=== PATIENT | female | born 1935 | race Caucasian/White ===

== ENCOUNTER 2019-05-31 11:57 | Outpatient (CLI) | payer MEDICARE, SELFPAY ==
--- NOTE | ~2019-05-31 | US_ITS ---
EXAMINATION: US venous doppler [facility] DATE: 05/31/2019 12:39 INDICATION: Pain and swelling in the left lower limb. TECHNIQUE: Grayscale ultrasound images without and with compression and Doppler ultrasound images of the left lower extremity veins were obtained. COMPARISON: None. FINDINGS: The visualized portions of left common femoral vein, profunda (deep) femoral vein, femoral vein, popl iteal vein, peroneal veins, posterior tibial veins, gastrocnemius vein and greater saphenous vein out flow are patent. There is increased venous pulsatility which extends to the popliteal and gastrocnemi us veins. 2.5 x 2.5 x 1.4 cm Felix cyst at the left popliteal fossa. IMPRESSION: 1. No deep venous thrombosis in the left lower limb. 2. Increased venous pulsatility extending to the popliteal and gastrocnemius veins. This can be seen in the setting of tricuspid regurgitation, right heart failure or other causes of elevated right hear t pressures. 3. Small left Felix's cyst. Reviewed, dictated and finalized at location A. UNICATIONS INSTRUCTOR IMPRESSION: 1. No deep venous thrombosis in the left lower limb. 2. Increased venous pulsatility extending to the popliteal and gastrocnemius ve ins. This can be seen in the setting of tricuspid regurgitation, right heart fa ilure or other causes of elevated right heart pressures. 3. Small left Felix's cyst.
== END 2019-05-31 11:58 | disposition home or self-care (01) ==
PROVIDERS: PCP Emergency Medicine; Visit Provider Internal Medicine Cardiovascular Disease
DX: R60.0 Localized edema (principal); R94.39 Abnormal result of other cardiovascular function study; M71.22 Synovial cyst of popliteal space [Baker], left knee
CPT/HCPCS: 93971

== ENCOUNTER 2019-12-21 13:40 | Outpatient (CLI) | payer MEDICARE, SELFPAY ==
--- NOTE | 2019-12-21 14:10 | ECHO_ITS ---
Patient Info Name: Martha Martinez Age: 84 years : 1935 Gender: Female Ht: 61 in Wt: 113 lbs BSA: 1.49 m2 HR: 86 bpm BP: 180 / 84 mmHg Technical Quality: Good Exam Date: 12/21/2019 2:21 PM Exam Location: [facility] Patient Status: Outpatient Admit Date: 12/21/2019 Staff Ordering Physician: Danis Urena DO Chief Librarian Extension Department: Eyal Reyes, RAVI, RT Attending Provider: Danis Urena DO Referring Physician: Romel STERLING; Exam Type: CA echo dop color flow w con Study Info Indications I35.0 - Nonrheumatic aortic (valve) stenosis Complete two-dimensional, color flow and Doppler transthoracic echocardiogram is performed. Summary 1. Complete two-dimensional, color flow and Doppler transthoracic echocardiogram is performed. 2. Left ventricular chamber dimension is normal. 3. Ventricular septum is sigmoid shaped. No LVOT obstruction. 4. Left ventricular systolic function is normal, estimated at 60-65%. 5. The left ventricular diastolic function is grade I diastolic dysfunction. 6. Left atrial chamber dimension is moderately enlarged. 7. There is severe aortic valve sclerosis. 8. There is severe aortic valve stenosis with a peak velocity of 406.60 cm/s, mean gradient of 26 mmHg, and aortic valve area of 0.81 cm2. 9. There is mild aortic valve regurgitation. 10. The mitral valve has moderately calcified annulus. 11. Moderate systolic anterior motion of abnormality. 12. There is mild mitral valve regurgitation. 13. There is mild to moderate tricuspid valve regurgitation. 14. Mild pulmonary hypertension, estimated pulmonary arterial systolic pressure is 44 mmHg. 15. There is trace pulmonic regurgitation. Left Ventricle Tissue doppler is not performed. Ventricular septum is sigmoid shaped. No LVOT obstruction. Left ventricular chamber dimension is normal. Left ventricular systolic function is normal, estimated at 60-65%. The left ventricular diastolic function is grade I diastolic dysfunction. Right Ventricle Right ventricular chamber dimension is normal. Right ventricular systolic function is normal. Left Atria Left atrial chamber dimension is moderately enlarged. Right Atria Right atrial chamber dimension is normal. Aortic Valve The aortic valve is trileaflet. There is severe aortic valve sclerosis. There is severe aortic valve stenosis with a peak velocity of 406.60 cm/s, mean gradient of 26 mmHg, and aortic valve area of 0.81 cm2. There is mild aortic valve regurgitation. Pulmonic Valve There is trace pulmonic regurgitation. Mitral Valve The mitral valve has moderately calcified annulus. Moderate systolic anterior motion of abnormality. There is no mitral valve stenosis. There is mild mitral valve regurgitation. Tricuspid Valve There is mild to moderate tricuspid valve regurgitation. Mild pulmonary hypertension, estimated pulmonary arterial systolic pressure is 44 mmHg. Pericardium/Pleural There is no pericardial effusion. Inferior Vena Cava Normal inferior vena cava with >50% collapse upon inspiration consistent with normal right atrial pressure, 5 mmHg. Aorta The aortic root size at the sinus of Valsalva is normal. Left Ventricular Outflow Tract Name Value Normal LVOT 2D LVOT
== END 2019-12-21 13:41 | disposition home or self-care (01) ==
PROVIDERS: PCP Emergency Medicine; Visit Provider Internal Medicine Cardiovascular Disease
DX: I08.3 Combined rheumatic disorders of mitral, aortic and tricuspid valves (principal)
CPT/HCPCS: C8929

== ENCOUNTER 2020-08-05 09:02 | Emergency (ER) | payer MEDICARE, SELFPAY ==
[2020-08-05 09:11] VITALS: BP 152/70; PULSE 89; RESP 20; TEMP 36.6; O2SAT 98
--- NOTE | 2020-08-05 09:19 | ED.WOUNDLAC ---
HPI - Wound/Laceration General Chief Complaint: Wound/Laceration Stated Complaint: left knee/left hand injury Time Seen by Provider: 08/05/20 09:19 Source: patient, RN notes reviewed and old records reviewed Mode of arrival: ambulatory Limitations: no limitations History of Present Illness HPI narrative: 85-year-old female presents to [facility] care with complaints of falling at home yesterday on concrete when she was taking out the garbage and receiving skin tears to her left knee and on her inner left wrist. Patient denies any LOC with fall or any other injuries. Patient has large skin tear to her left anterior knee measuring [id number] with outer layer of skin bruised, also 2.5cm X 1cm skin tear to inner left wrist with part of outer tissue excised by patient prior to arrival. Patient states that her tetanus is not up to date and she is concerned about possible infection. Patient has full ROM of left knee and left wrist with sensation and circulation intact to those extremities. Onset (ago): day(s) Extremity Location: Left: wrist and knee Place: home Patient tetanus UTD: No Context: fall Associated symptoms: none Treatments prior to arrival: bandage Related Data Home Medications Medication Instructions Recorded Confirmed amlodipine 5 mg tablet 10 mg PO DAILY tablet 05/30/19 05/01/20 aspirin 81 mg tablet,delayed 81 mg PO DAILY 05/30/19 05/01/20 release irbesartan 150 mg tablet 300 mg PO DAILY tablet 05/30/19 05/01/20 Allergies Allergy/AdvReac Type Severity Reaction Status Date / Time No Known Allergies Allergy Verified 11/29/19 10:06 Review of Systems Review of Systems: Narrative: CONSTITUTIONAL: Denies fever, chills, or sweats. EYES: Denies visual changes, redness, or discharge. ENT: Denies rhinorrhea, congestion, sore throat, or otalgia. CARDIOVASCULAR: Denies chest pain, palpitations, or edema. RESPIRATORY: Denies cough or dyspnea. GASTROINTESTINAL: Denies abdominal pain, nausea, vomiting, or diarrhea. GENITOURINARY: Denies dysuria or hematuria. SKIN: Denies rash or itching. positive for skin tears to left anterior knee and to left inner wrist with no acute bleeding noted. MUSCULOSKELETAL: Denies back pain, joint pain, or myalgia. NEUROLOGIC: Denies headache, numbness, or weakness. PSYCHIATRIC: Denies anxiety or depression. All systems reviewed & are unremarkable except as noted in HPI and below PMFSH Past Medical History Medical History (Updated 08/05/20 @ 10:01 by Dena Polk NP) SELF (dyspnea on exertion) Heart murmur HTN (hypertension) PAD (peripheral artery disease) Surgical History Surgical History (Updated 08/05/20 @ 10:01 by Dena Polk NP) No history of previous surgery Family History Family History (Updated 08/05/20 @ 10:03 by Dena Polk NP) Sibling Primary cancer of brain Mother Hypertension Social History Social History (Updated 08/05/20 @ 10:02 by Dena Polk NP) Smoking status: Former smoker Alcohol intake: current Alcohol use details: rare social Substance use: never Living arrangements: alone Occupation/Education: retired Gender identity (if verbalized by the patient): Female Comments At time of signature, agree with nursing past medical, surgical, social and family history. There is no relevant family history pertinent to the presenting complaint Exam Narrative: Exam Narrative: GENERAL: Well-appearing, well-nourished, and in no acute distress. HEAD: Normocephalic, atraumatic. EYES: PERRLA and EOMI. ENT: Nares clear, no rhinorrhea or epistaxis. Mucous membranes moist. NECK: Supple.no lymphadenopathy CHEST: Clear to auscultation. No respiratory distress.SAO2 98% on room air HEART: Regular rate and rhythm. No murmur heard. Normal peripheral pulses. ABDOMEN: Soft, nontender, nondistended, normal active bowel sounds. EXTREMITIES: Normal range of motion. No edema. SKIN: Warm, dry, no rash. skin tear to left anterior knee with outer t
[2020-08-05] MEDS: TETANUS,DIPHTHERIA,AC PERTUSSIS ADULT (0.5 ML) BOOSTRIX IM (09:36)
== END 2020-08-05 09:57 | disposition home or self-care (01) ==
PROVIDERS: Emergency Provider Registered Nurse; PCP Emergency Medicine
DX: S81.012A Laceration without foreign body, left knee, initial encounter (principal); S61.512A Laceration without foreign body of left wrist, initial encounter; W19.XXXA Unspecified fall, initial encounter; Z23 Encounter for immunization; Z87.891 Personal history of nicotine dependence; I10 Essential (primary) hypertension; I73.9 Peripheral vascular disease, unspecified; R01.1 Cardiac murmur, unspecified; Z79.82 Long term (current) use of aspirin
CPT/HCPCS: 90471; 90715; 99213; G0463

== ENCOUNTER 2020-11-05 12:44 | Outpatient (CLI) | payer MEDICARE, SELFPAY ==
--- NOTE | 2020-11-05 13:00 | ECHO_ITS ---
Patient Info Name: Martha Martinez Age: 85 years : 1935 Gender: Female Ht: 61 in Wt: 112 lbs BSA: 1.48 m2 HR: 79 bpm BP: 168 / 71 mmHg Exam Date: 11/05/2020 1:13 PM Exam Location: [facility] Patient Status: Outpatient Admit Date: 11/05/2020 Staff Ordering Physician: Danis Urena DO Java Developer With Security Clearance: Eyal Reyes RDCS, RT Attending Provider: Danis Urena DO Referring Physician: Romel STERLING; Exam Type: CA echo doppler color flow Study Info Indications I35.0 - Nonrheumatic aortic (valve) stenosis Complete two-dimensional, color flow and Doppler transthoracic echocardiogram is performed. Summary 1. Complete two-dimensional, color flow and Doppler transthoracic echocardiogram is performed. 2. Left ventricular chamber dimension is normal. 3. Ventricular septum is sigmoid shaped. No LVOT obstruction. 4. Left ventricular systolic function is normal, estimated at 65-70%. 5. There is mildly increased left ventricular wall thickness. 6. The left ventricular diastolic function is grade I diastolic dysfunction. 7. E/e' 16 is elevated. 8. Left atrial chamber dimension is mildly enlarged. 9. There is severe aortic valve sclerosis. 10. There is severe aortic valve stenosis with a peak velocity of 417 cm/s, mean gradient of 40 mmHg, and aortic valve area of 0.9 cm2. 11. There is mild aortic valve regurgitation. 12. The mitral valve has moderately calcified annulus. 13. There is mild tricuspid valve regurgitation. 14. Mild pulmonary hypertension, estimated pulmonary arterial systolic pressure is 49 mmHg. Left Ventricle E/e' 16 is elevated. Ventricular septum is sigmoid shaped. No LVOT obstruction. Left ventricular chamber dimension is normal. Left ventricular systolic function is normal, estimated at 65-70%. There is mildly increased left ventricular wall thickness. The left ventricular diastolic function is grade I diastolic dysfunction. Right Ventricle Right ventricular systolic function is normal and with normal TAPSE 2.2 cm.. Right ventricular chamber dimension is normal. Left Atria Left atrial chamber dimension is mildly enlarged. Right Atria Right atrial chamber dimension is normal. Aortic Valve The aortic valve is trileaflet. There is severe aortic valve sclerosis. There is severe aortic valve stenosis with a peak velocity of 417 cm/s, mean gradient of 40 mmHg, and aortic valve area of 0.9 cm2. There is mild aortic valve regurgitation. Pulmonic Valve There is no pulmonic regurgitation. Mitral Valve The mitral valve has moderately calcified annulus. There is no mitral valve stenosis. There is no mitral valve regurgitation. Tricuspid Valve There is mild tricuspid valve regurgitation. Mild pulmonary hypertension, estimated pulmonary arterial systolic pressure is 49 mmHg. Pericardium/Pleural There is no pericardial effusion. Inferior Vena Cava Normal inferior vena cava with >50% collapse upon inspiration consistent with normal right atrial pressure, 5 mmHg. Aorta The aortic root size at the sinus of Valsalva is normal. Left Ventricular Outflow Tract Name Value Normal LVOT 2D LVOT Diameter 1.9 cm LVOT Doppler
== END 2020-11-05 12:45 | disposition home or self-care (01) ==
PROVIDERS: PCP Emergency Medicine; Visit Provider Internal Medicine Cardiovascular Disease
DX: I35.0 Nonrheumatic aortic (valve) stenosis (principal); I27.20 Pulmonary hypertension, unspecified; R93.1 Abnormal findings on diagnostic imaging of heart and coronary circulation
CPT/HCPCS: 93306; J2704

== ENCOUNTER 2021-04-06 15:10 | Inpatient (IN) | payer MEDICARE, SELFPAY ==
[2021-04-06] VITALS (17 sets, daily range): BP systolic 124–180; BP diastolic 55–86; PULSE 78–102; RESP 10–27; TEMP 36.5; O2SAT 90–100
--- NOTE | ~2021-04-06 | XR_ITS ---
EXAMINATION: XR hip RT min 2V DATE: 04/08/2021 13:39 INDICATION: Right hip arthroplasty. Postop. TECHNIQUE: 2 views of right hip were obtained. COMPARISON: Right hip radiographs 04/06/2021 FINDINGS: There is a bipolar right hip hemiarthroplasty in near-anatomic alignment. No fracture. Righ t hip joint space is normal. There is gas in the soft tissues, consistent with recent surgery. IMPRESSION: 1. Bipolar right hip hemiarthroplasty in near-anatomic alignment. Reviewed, dictated and finalized at location B. AL TEACHER
--- NOTE | ~2021-04-06 | XR_ITS ---
EXAMINATION: XR hip RT 2V w AP pelvis INDICATION: Right hip pain, initial encounter TECHNIQUE: AP view the pelvis and two views of the right hip are obtained. COMPARISON: None available FINDINGS: There is an acute, traumatic, closed, subcapital fracture of the right femoral neck. The fe moral head is well-seated in the acetabulum. There is mild osteoarthritis of the hips. No additional fracture is identified. Calcified atherosclerosis is noted. There is a moderate volume of colonic sto ol. IMPRESSION: 1. Acute subcapital right femoral neck fracture. Reviewed, dictated and finalized at location F. ERY WORKER
--- NOTE | ~2021-04-06 | XR_ITS ---
EXAMINATION: XR chest 1V portable DATE: 04/09/2021 13:17 INDICATION: Leukocytosis. TECHNIQUE: A single frontal view of the chest was obtained. COMPARISON: Chest single view 04/06/2021 FINDINGS: There are airspace opacities at left lung base. There is a small left pleural effusion. No pneumothorax. The heart size is normal. IMPRESSION: 1. Small left pleural effusion. 2. Airspace opacities at left lung base, consistent with atelectasis versus pneumonia. Reviewed, dictated and finalized at location B. IAC CATHETERIZATION TECHNOLOGIST IMPRESSION: 1. Small left pleural effusion. 2. Airspace opacities at left lung base, consistent with atelectasis versus pne umonia.
--- NOTE | ~2021-04-06 | XR_ITS ---
EXAMINATION: XR chest 1V portable INDICATION: Pain after fall TECHNIQUE: Portable AP chest at 1637 hours COMPARISON: None available FINDINGS: The lungs are free of acute opacities. There is no pleural effusion or pneumothorax. The ca rdiomediastinal silhouette is normal. IMPRESSION: 1. No acute cardiopulmonary abnormality. Reviewed, dictated and finalized at location F. ECT MANAGEMENT DIRECTOR
--- NOTE | 2021-04-06 15:50 | ECG_ITS ---
Measurements Intervals [place] Rate: 94 P: 72 GA: 163 QRS: 32 QRSD: 134 T: 243 QT: 348 QTc: 436 Interpretive Statements SINUS RHYTHM POSSIBLE LEFT ATRIAL ENLARGEMENT LEFT BUNDLE BRANCH BLOCK BASELINE ARTIFACT- I, II, III, AVL, V1 ABNORMAL ECG Electronically Signed On 04-06-2021 17:06:13 ETHNIC ORIGINS TEACHER by Danis Urena D.O.
--- NOTE | 2021-04-06 16:08 | ED.LOWEXIN ---
HPI - Extremity Injury (Lower) General Chief Complaint: Extremity Injury, Lower <Jocelyn Elder PA-C - Last Filed: 04/06/21 16:34> Stated Complaint: r hip pain s/p fall <VIRGIL Gill Last Filed: 04/06/21 16:34> Time Seen by Provider: 04/06/21 15:38 <VIRGIL Gill Last Filed: 04/06/21 16:34> Source: patient <VIRGIL Gill Last Filed: 04/06/21 16:34> Mode of arrival: EMS <VIRGIL Gill Last Filed: 04/06/21 16:34> Limitations: no limitations <VIRGIL Gill Last Filed: 04/06/21 16:34> History of Present Illness HPI Narrative: This is a 86 year old female that presents to the ER via EMS for right hip pain after a fall today. Reports she tripped over a cord and landed on her right hip. Reports pain to the area and decreased ROM. Reports an abrasion to the right elbow. Denies hitting her head or loss of consciousness. Denies chest pain, shortness of breath, weakness or numbness. <VIRGIL Gill Last Filed: 04/06/21 16:34> Related Data Home Medications: Home Medications Medication Instructions Recorded Confirmed amlodipine 5 mg tablet 10 mg PO DAILY tablet 05/30/19 10/29/20 aspirin 81 mg tablet,delayed 81 mg PO DAILY 05/30/19 10/29/20 release irbesartan 150 mg tablet 300 mg PO DAILY tablet 05/30/19 10/29/20 spironolactone 25 mg tablet 25 mg PO DAILY 10/29/20 10/29/20 <VIRGIL Gill Last Filed: 04/06/21 16:34> Allergies/Adverse Reactions: Allergies Allergy/AdvReac Type Severity Reaction Status Date / Time No Known Allergies Allergy Verified 04/06/21 15:26 <VIRGIL Gill Last Filed: 04/06/21 16:34> Review of Systems Review of Systems: CONSTITUTIONAL: Denies fever CARDIOVASCULAR: Denies chest pain, or edema. RESPIRATORY: Denies dyspnea. MUSCULOSKELETAL: Reports joint pain, and myalgia. NEUROLOGIC: Denies headache, numbness, or weakness. <Jocelyn Elder PA-C - Last Filed: 04/06/21 16:34> All systems reviewed & are unremarkable except as noted in HPI and below <Jocelyn Elder PA-C - Last Filed: 04/06/21 16:34> PMFSH Past Medical History Medical History: Medical History SELF (dyspnea on exertion) Heart murmur HTN (hypertension) PAD (peripheral artery disease) <Jocelyn Elder PA-C - Last Filed: 04/06/21 16:34> Surgical History Surgical History: Surgical History No history of previous surgery <Jocelyn Elder PA-C - Last Filed: 04/06/21 16:34> Family History Family History: Family History Sibling Primary cancer of brain Mother Hypertension <Jocelyn Elder PA-C - Last Filed: 04/06/21 16:34> Social History Social History: Social History Smoking status: Former smoker Alcohol intake: current Alcohol use details: rare social Substance use: never Gender identity (if verbalized by the patient): Female <Jocelyn Elder PA-C - Last Filed: 04/06/21 16:34> Exam Narrative: GENERAL: Well-appearing, well-nourished, and in no acute distress. HEAD: Normocephalic, atraumatic. EYES: PERRLA and EOMI. ENT: Nares clear, no rhinorrhea or epistaxis. Mucous membranes moist. Oropharynx without tonsillar hypertrophy exudate or other lesions. Bilateral TMs pearly stout non-bulging NECK: Supple. No adenopathy or masses. No carotid bruits or JVD CHEST: Clear to auscultation. No respiratory distress. No wheezes rales or rhonchi HEART: Regular rate and rhythm. Systolic murmur heard best at the left sternal border. Normal peripheral pulses. ABDOMEN: Soft, nontender, nondistended, normal active bowel sounds. EXTREMITIES: Normal range of motion, except decreased ROM in the right hip. No edema. 1+ DP pulses. Superficial skin tear to the rig
[2021-04-06] MEDS: MORPHINE SULFATE (*CRX) 2 MG/ML INJ IV PUSH ×2 (16:23→21:05)
[2021-04-06 16:31] LABS: Hematocrit 35.1 % (37.0-47.0); Hemoglobin 11.8 g/dL (12.0-15.0); Mean Corpuscular HGB Conc 33.6 g/dl (32-36); Mean Corpuscular Hemoglobin 30.6 pg (26-34); Mean Corpuscular Volume 91.2 fl (80-100); Mean Platelet Volume 8.1 fl (7.4-10.4); Platelet Count Result 367 k/mm3 (150-375); Red Blood Count 3.85 M/mm3 (4.2-5.4); Red Cell Distribution Width 12.1 % (11.5-14.5); White Blood Count 35.8 K/mm3 (4.5-10.0)
[2021-04-06 16:40] LABS: Anion Gap 13 mmol/L (8-16); Blood Urea Nitrogen 14 mg/dL (7-17); Calcium 9.1 mg/dL (8.4-10.2); Carbon Dioxide 20 mmol/L (22-30); Chloride 88 mmol/L (98-107); Estimated CRCL calculation 25 ml/min; Estimated Glomerular Filt Rate 47; Glucose 147 mg/dL (65-110); Potassium 5.6 mmol/L (3.4-5.0); Sodium 121 mmol/L (137-145)
--- NOTE | 2021-04-06 16:40 | PM.IMHP ---
H&P: HPI History of Present Illness Date/Time: 04/06/21 16:40 Chief Complaint: Right hip pain after fall. Narrative: This is a pleasant 86-year-old female with history of aortic stenosis, hypertension, dyslipidemia, chronic left bundle branch block, peripheral arterial disease, chronic lymphocytic leukemia, chronic hyponatremia, and several other comorbidities who presented to the emergency department earlier today via EMS for evaluation of right hip pain after a fall. She had been vacuuming this morning and unfortunately tripped over the cord causing her to fall onto her right side, striking her right elbow and right hip on the floor. She was eventually able to crawl to a nearby chair and pull herself up however when she attempted to stand she was unable to bear weight on the right leg due to pain in the hip. X-ray in the emergency department showed acute right subcapital femoral neck fracture and she is being admitted in this setting. She denies head trauma and loss of consciousness in the fall and she sustained no other injuries aside from hip fracture and a skin tear to the right elbow. She has minimal discomfort when lying still but has sharp spasming pains with any movement of the right hip. She denies paresthesias, skin color, and temperature changes distal to the fracture. Preop labs done in the emergency department showed several abnormalities including acute on chronic hyponatremia, mild hyperkalemia, and increased creatinine from baseline. Patient tells me she has been eating and drinking as usual however she does look a bit dry on exam. She denies lightheadedness, dizziness, near-syncope, weakness, vomiting, and diarrhea. Review of Systems Review of Systems: Twelve systems were reviewed. No recent cold or flu symptoms. She denies sick contacts. No fever, chills, or sweats. She denies chest pain, pleuritic pain, and palpitations. No cough or shortness of breath. She denies nausea, vomiting, diarrhea, and dysuria. She has moderate aortic stenosis noted on JOSÉ LUIS in July 2018 for which she is followed by Dr. Urena. No syncope or near syncope. Except as documented, other systems were reviewed and are negative. [facility] Past Medical History Medical History (Updated 04/06/21 @ 23:00 by Lissette Devine PA-C) Aortic stenosis Severe aortic stenosis with a valve area of 0.9 cm2 on echocardiogram in October 2020. Chronic hyponatremia Chronic lymphocytic leukemia Diastolic dysfunction 11/05/20 Echo: EF 65-70%, mild LVH, grade I diastolic dysfunction (E/e' 16), mild LAE, severe (CHANDLER 0.9 cm2), mild AI/TR, RVSP 49 mmHg. Dyslipidemia Hypertension Left bundle branch block Lexiscan Myoview negative for ischemia in July 2018. Peripheral arterial disease Arterial Duplex LE on 07/12/2018: Left 0.73 and right LANIE 0.37. Right brachial 220 and left 261 mmHg. Surgical History Surgical History No history of previous surgery Family History Family History Sibling Primary cancer of brain Mother Hypertension Social History Social History (Updated 04/06/21 @ 22:57 by Lissette Devine PA-C) Social History: The patient lives in her own home in [place]. She is a former smoker. She drinks alcohol very rarely and in moderation. No illicit substance use. She designates her children as her surrogate decision makers. Code status: Full code. Meds Home Medications and Allergies Home Medications Medication Instructions Recorded Confirmed Type amlodipine 5 mg tablet 10 mg PO DAILY tablet 05/30/19 10/29/20 History aspirin 81 mg tablet,delayed 81 mg PO DAILY 05/30/19 10/29/20 History release irbesartan 150 mg tablet 300 mg PO DAILY tablet 05/30/19 10/29/20 History compr.stocking,knee,long,small #12 each 05/31/19 10/29/20 Rx furosemide 20 mg tablet 20 mg PO QAM #30 tablet 04/28/20 10/29/20 Rx cephalexin 500 mg PO Q8H #30 cap
[2021-04-06 16:41] LABS: INR 0.9; Prothrombin Time 12.3 Seconds (11.1-14.7)
[2021-04-06 16:42] LABS: Partial Thromboplastin Time 32.4 SECONDS (22.3-36.8)
[2021-04-06 17:02] LABS: Lymphocytes Absolute Manual 16.46 K/mm3 (1.1-4.5); Lymphocytes Percent Manual 46 % (18-44); Neutrophils Percent Manual 49 % (46-73); Total Cells Counted 100
[2021-04-06 17:03] LABS: Burr Cells 1+ (NORMAL); Monocytes Absolute Manual 1.79 K/mm3 (0.1-0.90); Monocytes Percent Manual 5 % (3-9); Platelet Estimate Adequate (Adequate); Smudge Cells MODERATE
[2021-04-06 17:04] LABS: Atypical Lymphocytes Present
--- NOTE | 2021-04-06 17:23 | PM.CNCAR ---
Assessment and Plan Assessment and plan (1) Preop cardiovascular exam: Code(s): Z01.810 - Encounter for preprocedural cardiovascular examination Status: Acute Assessment and Plan: Asymptomatic from cardiac standpoint. Risk profile: age, PAD, severe , hypertension, dyslipidemia. Functional status: >4 METs. Surgical risk: Moderate orthopedic surgery. Overall risk stratification: She is at moderate cardiac risk for noncardiac surgery. Her last nuclear stress test was July 2018 that was normal. She needs to weigh risks/benefits of surgery with orthopedic surgeon. Correct electrolytes with sodium 121 and potassium 5.6. She has leukocytosis and mildly anemic, needs to be evaluated. (2) Aortic stenosis: Code(s): I35.0 - Nonrheumatic aortic (valve) stenosis Status: Acute Assessment and Plan: Severe. (3) PAD (peripheral artery disease): Code(s): I73.9 - Peripheral vascular disease, unspecified Status: Acute Assessment and Plan: Right with severe PAD and mod on left leg. (4) Dyslipidemia: Code(s): E78.5 - Hyperlipidemia, unspecified Status: Acute Assessment and Plan: On Pravastatin. (5) HTN (hypertension): Code(s): I10 - Essential (primary) hypertension Status: Acute Assessment and Plan: Stable. (6) LBBB (left bundle branch block): Code(s): I44.7 - Left bundle-branch block, unspecified Status: Acute History of Present Illness History of Present Illness Consult date/time: 04/06/21 17:23 Reason for consult: Preop risk stratification. Patient is a 86 yr old woman who is my regular cardiology patient presents via EMS to ER after a fall. She has a history of aortic stenosis, hypertension, dyslipidemia, PAD, LBBB. Reports she tripped over an extension cord today. She has right hip pain. States she can walk up to 1/2 mile prior to weather getting cold. Denies chest pain, sob, orthopnea, PND, palpitations. EKG: Sinus rhythm, LBBB. CXR: Normal. Xray hip: Acute right subcapital femoral neck fracture. WBC 35, Hb 11.8, Sodium 121, potassium 5.6, Cr 1.1/Cr Cl 25. Cardiovascular Procedures Echo/MUGA:: 11/05/20 Echo: EF 65-70%, mild LVH, grade I diastolic dysfunction (E/e' 16), mild LAE, severe (CHANDLER 0.9 cm2), mild AI/TR, RVSP 49 mmHg. 12/21/19 Echo: EF 60-65%, grade I diastolic dysfunction, mod LAE, severe (CHANDLER 0.8 cm2, mean 26 mmHg, peak velocity 4 m/s), mod MAC, mod TANYA, mild MR, mild-mod TR, RVSP 44 mmHg. JOSÉ LUIS (EF normal, mod LVH, mod LAE, mild-mod MR, mod MAC, mod and by planimetry 1.1 cm2, mild AI.) - 08/02/2018 Echo (EF 60-65%, mod LVH, grade I diastolic dysfunction (E/E' 18), mod LAE, mod MAC, mild MR, mod-severe (CHANDLER 0.8 cm2, mean 20 mmHg), mild AI/TR, RVSP 47 mmHg.) - 07/27/2018 Electrophysiology:: EKG (Sinus rhythm, PVC, LBBB.) - 07/21/2018 Stress Tests:: 05/31/19 Venous duplex: Negative for DVT in left leg. MPI (Lexiscan myoview: Negative for ischemia.) - 08/02/2018 Arterial Duplex LE (Left 0.73 and right LANIE 0.37. Right brachial 220 and left 261 mmHg.) - 07/12/2018 Venous Duplex (Negative for DVT of right leg.) - 07/12/2018 Reason For Visit: r hip pain s/p fall Review of Systems Review of Systems: All systems reviewed & are unremarkable except as noted in HPI and below Constitutional: Constitutional: Reports as per HPI, Denies chills and Denies fever(s) Cardiovascular: Cardiovascular: Reports as per HPI, Denies chest pain, Denies irregular heart rhythm, Denies leg edema and Denies lightheadedness Respiratory: Respiratory: Reports as per HPI and Denies dyspnea Gastrointestinal: Gastrointestinal: Reports as per HPI and Denies abdominal pain Genitourinary: Genitourinary: Reports as per HPI and Denies dysuria Musculoskeletal: Musculoskeletal: Reports as per HPI and Reports arthralgias Neurologic: Reports as per HPI, Denies dizziness and Denies syncope [facility] Past Medical History Medical History (Reviewed 10/29/20 @ 09:47
--- NOTE | 2021-04-06 18:03 | PM.CNOR ---
Assessment and Plan Additional Plan Right garden 3 femoral neck fx in a pt with medical issues which will require cardiology consult and w/o Plan: If cleared will require hemiarthroplasty Tenative plan for 03/08/22 in am. Dinh Accolade 2 system. Endoprosthesis. Press fit with cemented back-up avail. History of Present Illness HPI Consult date: 04/06/21 Chief complaint: r hip pain s/p fall Narrative: 86 yo fell sustaining a right Garden 3 femoral neck fx. [facility] Past Medical History Medical History SELF (dyspnea on exertion) Heart murmur HTN (hypertension) PAD (peripheral artery disease) Surgical History Surgical History No history of previous surgery Family History Family History Sibling Primary cancer of brain Mother Hypertension Social History Social History Smoking status: Former smoker Alcohol intake: current Alcohol use details: rare social Substance use: never Gender identity (if verbalized by the patient): Female Meds Home Medications and Allergies Home Medications Medication Instructions Recorded Confirmed Type amlodipine 5 mg tablet 10 mg PO DAILY tablet 05/30/19 10/29/20 History aspirin 81 mg tablet,delayed 81 mg PO DAILY 05/30/19 10/29/20 History release irbesartan 150 mg tablet 300 mg PO DAILY tablet 05/30/19 10/29/20 History compr.stocking,knee,long,small #12 each 05/31/19 10/29/20 Rx furosemide 20 mg tablet 20 mg PO QAM #30 tablet 04/28/20 10/29/20 Rx cephalexin 500 mg PO Q8H #30 cap 08/05/20 10/29/20 Rx pravastatin 20 mg tablet 20 mg PO DAILY #90 tablet 08/11/20 10/29/20 Rx spironolactone 25 mg tablet 25 mg PO DAILY 10/29/20 10/29/20 History Allergies Allergy/AdvReac Type Severity Reaction Status Date / Time No Known Allergies Allergy Verified 04/06/21 15:26 Vital Signs Vital Signs - 24 hr 04/06/21 15:13 04/06/21 16:08 Temperature 36.5 C Pulse Rate 89 102 H Respiratory Rate 20 27 H Blood Pressure 180/64 H 124/68 Pulse Oximetry 100 98 Exam Extrem: Other: Right Hip and LE ER and shortened somewhat NV intact distally calves are NT Log roll is tender. Results Labs Result Diagrams: 04/06/21 16:24 04/06/21 16:24 Labs: Abnormal lab results 04/06/21 04/06/21 Range/Units 16:24 16:24 WBC 35.8 H (4.5-10.0) K/mm3 RBC 3.85 L (4.2-5.4) M/mm3 Hgb 11.8 L (12.0-15.0) g/dL Hct 35.1 L (37.0-47.0) % Lymphocytes % (Manual) 46 H (18-44) % Abs Lymphs (Manual) 16.46 H (1.1-4.5) K/mm3 Abs Monocytes (Manual) 1.79 H (0.1-0.90) K/mm3 Sodium 121 L (137-145) mmol/L Potassium 5.6 H (3.4-5.0) mmol/L Chloride 88 L (98-107) mmol/L Carbon Dioxide 20 L (22-30) mmol/L Creatinine 1.10 H (0.7-1.0) mg/dL Estimated GFR 47 L (59 - ) Glucose 147 H (65-110) mg/dL H & H 04/06/21 Range/Units 16:24 Hgb 11.8 L (12.0-15.0) g/dL Hct 35.1 L (37.0-47.0) % Coagulation 04/06/21 Range/Units 16:24 INR 0.9 All other labs normal.
[2021-04-06 18:20] LABS: Add Urine Microscopic? YES; Appearance Urine Clear (Clear); Bacteria Urine Trace /hpf; Bilirubin Urine Negative (Negative); Blood Urine Negative (Negative); Color Urine Yellow (Yellow); Glucose Urine UA Negative (Negative); Hyaline Casts Urine 20-29 /lpf; Ketones Urine Trace mg/dL (Negative); Leukocyte Esterase Ur Negative LEU/UL (Negative); Mucus Urine Rare /lpf; Nitrate Urine Negative (Negative); Protein Urine Negative (Negative); RBC Urine 0-2 /hpf (0-2); Specific Grav Ur 1.017 (1.001-1.035); Squamous Epithelial Cell Urine Rare /hpf (Few); WBC Urine 0-3 /hpf
[2021-04-06] MEDS: SODIUM CHLORIDE 0.9% IV 500 ML 999 ML IV CONT (18:24)
--- NOTE | 2021-04-06 20:43 | PC.NURSE ---
PT NOTED TO HAVE O2 SAT OF 88-89% ON RA WHILE RESTING. PT PLACED ON 2L O2 NC
[2021-04-06] MEDS: SODIUM CHLORIDE 0.9% IV 1,000 ML 75 ML IV CONT (21:04)
[2021-04-06 22:00] LABS: Free T4 Free Thyroxine Reflex 1.18 ng/dL (0.78-2.19)
[2021-04-06 23:57] LABS: Alanine Aminotransferase 21 U/L (4-35); Albumin Level 4.2 g/dL (3.5-5.1); Alkaline Phosphatase 90 U/L (38-126); Anion Gap 7 mmol/L (8-16); Aspartate Amino Transferase 26 U/L (14-36); Bilirubin,Total 0.6 mg/dL (0.2-1.3); Blood Urea Nitrogen 12 mg/dL (7-17); Calcium 8.9 mg/dL (8.4-10.2); Carbon Dioxide 21 mmol/L (22-30); Chloride 91 mmol/L (98-107); Estimated CRCL calculation 38 ml/min; Estimated Glomerular Filt Rate > 60; Glucose 143 mg/dL (65-110); Magnesium 1.9 mg/dL (1.6-2.3); Potassium 5.4 mmol/L (3.4-5.0); Sodium 119 mmol/L (137-145)
[2021-04-07] VITALS (15 sets, daily range): BP systolic 108–164; BP diastolic 56–69; PULSE 72–94; RESP 11–29; TEMP 36.1–36.7; O2SAT 86–100; BMI 22.4
--- NOTE | 2021-04-07 01:09 | PC.NURSE ---
Pt c/o pain, RN noted that there are no PRN pain med orders entered. Call out for Dr. Lombardi, new orders received
[2021-04-07] MEDS: HYDROmorphone HCL INJ (*CRX) 1 MG/ML SYR IV PUSH ×4 (01:27→20:48)
[2021-04-07] MEDS: SODIUM CHLORIDE 0.9% IV 100 ML 500 ML (01:30)
--- NOTE | 2021-04-07 02:04 | ADMGEN ---
This patient, Martha Martinez, was admitted to Medical Room 345-. Patient/family oriented to hospital policies and general routines including ID bracelet, bed and alarms, visiting hours, pain management, procedures, bathroom and other care routines, personal items, smoking policy, room service/diet, and visiting hours. Information on how to activate the Rapid Response Team has been discussed. Patient/Family are encouraged to report perceived risks to care and to ask questions if they do not understand what they are told or what they should do.
--- NOTE | 2021-04-07 08:02 | PM.PNCARD ---
Progress Note: A&P Assessment and Plan (1) Preop cardiovascular exam: Code(s): Z01.810 - Encounter for preprocedural cardiovascular examination Status: Acute Assessment and Plan: Asymptomatic from cardiac standpoint. Risk profile: age, PAD, severe , hypertension, dyslipidemia. Functional status: >4 METs. Surgical risk: Moderate orthopedic surgery. Overall risk stratification: She is at moderate cardiac risk for noncardiac surgery. Her last nuclear stress test was July 2018 that was normal. She needs to weigh risks/benefits of surgery with orthopedic surgeon. Correct electrolytes with sodium 119 and potassium 5.4. Spironolactone and Irbesartan on hold. Receiving IVF to treat dehydration and replete sodium level. (2) Aortic stenosis: Code(s): I35.0 - Nonrheumatic aortic (valve) stenosis Status: Acute Assessment and Plan: Severe. Asymptomatic. No need for valve replacement at this time. (3) PAD (peripheral artery disease): Code(s): I73.9 - Peripheral vascular disease, unspecified Status: Acute Assessment and Plan: Right with severe PAD and mod on left leg. (4) Dyslipidemia: Code(s): E78.5 - Hyperlipidemia, unspecified Status: Acute Assessment and Plan: On Pravastatin. (5) HTN (hypertension): Code(s): I10 - Essential (primary) hypertension Status: Acute Assessment and Plan: Mildly high. Resume Amlodipine 10 mg daily. (6) LBBB (left bundle branch block): Code(s): I44.7 - Left bundle-branch block, unspecified Status: Acute Subjective Date/time seen: 04/07/21 08:02 Reports no chest pain or sob. Has some hip discomfort. Exam Const: General: cooperative, healthy appearing and comfortable Resp: Auscultation: clear to auscultation bilaterally, no crackles, no rales, no rhonchi and no wheezes Cardio: Jugular venous distension: no JVD Rate: regular rate Rhythm: regular rhythm Heart sounds: Murmur heart sound present (V/ systolic murmur RICS) GI: GI Palp: No abdominal tenderness and Yes Soft to palpation Neuro: General: oriented to person, oriented to place and oriented to time Extrem: Right lower extremity: no edema Left lower extremity: no edema Objective Data Vital Signs Vital Signs: Vital Signs - 24 hr 04/06/21 15:13 04/06/21 16:08 04/06/21 17:17 Temperature 97.7 F Pulse Rate 89 102 H 91 Respiratory Rate 20 27 H 15 Blood Pressure 180/64 H 124/68 Pulse Oximetry 100 98 93 04/06/21 17:30 04/06/21 17:45 04/06/21 18:00 Temperature Pulse Rate 90 90 90 Respiratory Rate 18 15 10 L Blood Pressure Pulse Oximetry 95 92 94 04/06/21 18:15 04/06/21 18:30 04/06/21 19:32 Temperature Pulse Rate 88 78 89 Respiratory Rate 13 15 12 Blood Pressure 139/86 144/83 H Pulse Oximetry 93 99 90 04/06/21 20:23 04/06/21 20:43 04/06/21 20:44 Temperature Pulse Rate 85 90 Respiratory Rate 11 L 16 Blood Pressure 152/61 H Pulse Oximetry 94 94 96 04/06/21 21:08 04/06/21 22:34 04/06/21 22:45 Temperature Pulse Rate 88 86 90 Respiratory Rate 14 10 L 22 H Blood Pressure 163/55 H Pulse Oximetry 98 97 96 04/06/21 22:46 04/06/21 22:47 04/07/21 00:27 Temperature Pulse Rate 84 84 82 Respiratory Rate 17 17 11 L Blood Pressure 158/63 H 159/61 H Pulse Oximetry 96 96 99 04/07/21 00:30 04/07/21 00:31 04/07/21 00:45 Temperature Pulse Rate 88 86 93 Respiratory Rate 14 18 22 H Blood Pressure 152/65 H Pulse Oximetry 98 97 100 04/07/21 00:46 04/07/21 01:00 04/07/21 01:01 Temperature Pulse Rate 88 93 94 Respiratory Rate 12 29 H 16 Blood Pressure 164/60 H 153/60 H Pulse Oximetry 04/07/21 01:30 04/07/21 01:31 04/07/21 01:40 Temperature Pulse Rate 94 90 Respiratory Rate 24 H 16 Blood Pressure 158/69 H Pulse Oximetry 86 L 04/07/21 02:17 04/07/21 06:00 Temperature 98.0 F Pulse Rate 87 91 Respiratory Rate 16 16 Blood Pressure 162/66 H
[2021-04-07 08:28] LABS: Basophils Percent Auto 0.2 % (0.2-1.2); Eosinophils Percent Auto 0.1 % (0-4.4); Hematocrit 34.1 % (37.0-47.0); Hemoglobin 11.7 g/dL (12.0-15.0); Immature Granulocyte Absolute 0.13 K/mm3 (0.00-0.031); Immature Granulocyte Percent A 0.5 % (0-0.5); Lymphocytes Percent Auto 46.3 % (18.3-44.2); Mean Corpuscular HGB Conc 34.3 g/dl (32-36); Mean Corpuscular Hemoglobin 30.7 pg (26-34); Mean Corpuscular Volume 89.5 fl (80-100); Mean Platelet Volume 7.9 fl (7.4-10.4); Monocytes Percent Auto 4.1 % (2.6-8.5); Neutrophils Absolute Auto 12.2 K/mm3 (1.3-6.7); Neutrophils Percent Auto 48.8 % (45.5-73.1); Platelet Count Result 313 k/mm3 (150-375); Red Blood Count 3.81 M/mm3 (4.2-5.4); Red Cell Distribution Width 12.1 % (11.5-14.5); White Blood Count 25.1 K/mm3 (4.5-10.0)
--- NOTE | 2021-04-07 08:30 | PM.IMPN ---
Progress Note: A&P Assessment and Plan (1) Subcapital fracture of right femur: Code(s): S72.011A - Unspecified intracapsular fracture of right femur, initial encounter for closed fracture Status: Acute Assessment and Plan: Hip xray found acute subcapital right femoral neck fracture Dr. Walls has been consulted Surgical intervention scheduled Tuesday morning NPO after midnight on Tuesday Analgesics available as needed Continue bedrest PT/OT (2) Dehydration: Code(s): E86.0 - Dehydration Status: Acute Assessment and Plan: BUN/Cr 10/0.60 Na is low at 123 Trend urine output Encourage PO intake (3) Hyperkalemia: Code(s): E87.5 - Hyperkalemia Status: Acute Assessment and Plan: K is 5.6 on arrival IV hydration Spironolactone is on hold Trend labs (4) Chronic hyponatremia: Code(s): E87.1 - Hypo-osmolality and hyponatremia Status: Acute Assessment and Plan: Baseline sodium is in the upper 120s to low 130s Current sodium is 119 Continue to trend sodium levels Urine Creatinine is 122.6 Urine and serum osmolality is pending urine sodium 24 Will get a FENa score once all labs are back (5) Aortic stenosis: Code(s): I35.0 - Nonrheumatic aortic (valve) stenosis Status: Acute Assessment and Plan: Followed by Dr. Urena, who has been consulted to help stratify her cardiac risk preoperatively. (6) Diastolic dysfunction: Code(s): I51.89 - Other ill-defined heart diseases Status: Acute Assessment and Plan: Echo from Oct shows diastolic dysfunction grade one with EF of 65-70% Seems compensated Avoid over-hydration. (7) Hypertension: Code(s): I10 - Essential (primary) hypertension Status: Acute Assessment and Plan: 159/58 currently furosemide and spironolactone on hold Trend blood pressure adjust therapy as indicated (8) Peripheral arterial disease: Code(s): I73.9 - Peripheral vascular disease, unspecified Status: Acute Assessment and Plan: No acute issues. (9) Chronic lymphocytic leukemia: Code(s): C91.10 - Chronic lymphocytic leukemia of B-cell type not having achieved remission Status: Acute Assessment and Plan: White blood cell count is 25.1 likely a stress response from fall and fracture. Monitor. Time Spent With Patient Time with patient: 25 - 35 minutes Subjective Date/time seen: 04/07/21 0830 Interval history: Date/Time: 04/06/21 16:40 Narrative: This is a pleasant 86-year-old female with history of aortic stenosis, hypertension, dyslipidemia, chronic left bundle branch block, peripheral arterial disease, chronic lymphocytic leukemia, chronic hyponatremia, and several other comorbidities who presented to the emergency department earlier today via EMS for evaluation of right hip pain after a fall. She had been vacuuming this morning and unfortunately tripped over the cord causing her to fall onto her right side, striking her right elbow and right hip on the floor. She was eventually able to crawl to a nearby chair and pull herself up however when she attempted to stand she was unable to bear weight on the right leg due to pain in the hip. X-ray in the emergency department showed acute right subcapital femoral neck fracture and she is being admitted in this setting. She denies head trauma and loss of consciousness in the fall and she sustained no other injuries aside from hip fracture and a skin tear to the right elbow. She has minimal discomfort when lying still but has sharp spasming pains with any movement of the right hip. She denies paresthesias, skin color, and temperature changes distal to the fracture. Preop labs done in the emergency department showed several abnormalities including acute on chronic hyponatremia, mild hyperkalemia, and increased creatinine from baselin
--- NOTE | 2021-04-07 08:30 | P.PNIM_ITS ---
Progress Note: A&P Assessment and Plan (1) Subcapital fracture of right femur: Code(s): S72.011A - Unspecified intracapsular fracture of right femur, initial encounter for closed fracture Status: Acute Assessment and Plan: * Hip xray found acute subcapital right femoral neck fracture * Dr. Walls has been consulted * Surgical intervention scheduled Tuesday morning * NPO after midnight on Tuesday * Analgesics available as needed * Continue bedrest * PT/OT (2) Dehydration: Code(s): E86.0 - Dehydration Status: Acute Assessment and Plan: * BUN/Cr 10/0.60 * Na is low at 123 * Trend urine output * Encourage PO intake (3) Hyperkalemia: Code(s): E87.5 - Hyperkalemia Status: Acute Assessment and Plan: * K is 5.6 on arrival * IV hydration * Spironolactone is on hold * Trend labs (4) Chronic hyponatremia: Code(s): E87.1 - Hypo-osmolality and hyponatremia Status: Acute Assessment and Plan: * Baseline sodium is in the upper 120s to low 130s * Current sodium is 119 * Continue to trend sodium levels * Urine Creatinine is 122.6 * Urine and serum osmolality is pending * urine sodium 24 * Will get a FENa score once all labs are back (5) Aortic stenosis: Code(s): I35.0 - Nonrheumatic aortic (valve) stenosis Status: Acute Assessment and Plan: * Followed by Dr. Urena, who has been consulted to help stratify her cardiac risk preoperatively. (6) Diastolic dysfunction: Code(s): I51.89 - Other ill-defined heart diseases Status: Acute Assessment and Plan: * Echo from Oct shows diastolic dysfunction grade one with EF of 65-70% * Seems compensated * Avoid over-hydration. (7) Hypertension: Code(s): I10 - Essential (primary) hypertension Status: Acute Assessment and Plan: * 159/58 currently * furosemide and spironolactone on hold * Trend blood pressure * adjust therapy as indicated (8) Peripheral arterial disease: Code(s): I73.9 - Peripheral vascular disease, unspecified Status: Acute Assessment and Plan: * No acute issues. (9) Chronic lymphocytic leukemia: Code(s): C91.10 - Chronic lymphocytic leukemia of B-cell type not having achieved remission Status: Acute Assessment and Plan: * White blood cell count is 25.1 * likely a stress response from fall and fracture. Monitor. Time Spent With Patient Time with patient: 25 - 35 minutes Subjective Date/time seen: 04/07/21 0830 Interval history: Date/Time: 04/06/21 16:40 Narrative: This is a pleasant 86-year-old female with history of aortic stenosi s, hypertension, dyslipidemia, chronic left bundle branch block, peripheral arterial disease, chronic lymphocytic leukemia, chronic hyponatremia, and several other comorbidities who presented to the emergency department earlier today via EMS for evaluation of right hip pain after a fall. She had been vacuuming this morning and unfortunately tripped over the cord causing her to fall onto her right side, striking her right elbow and right hip on the floor. She was eventually able to crawl to a nearby chair and pull herself up however when she attempted to stand she was unable to bear weight on the right leg due to pain in the hip. X-ray in the emergency department showed acute right subcapital femoral neck fracture and she is being admitted in this setting
[2021-04-07 08:36] LABS: Sodium Urine Random 24 meq/L
[2021-04-07 08:40] LABS: Alanine Aminotransferase 20 U/L (4-35); Alkaline Phosphatase 86 U/L (38-126); Anion Gap 8 mmol/L (8-16); Aspartate Amino Transferase 25 U/L (14-36); Bilirubin,Total 0.6 mg/dL (0.2-1.3); Blood Urea Nitrogen 10 mg/dL (7-17); Calcium 8.7 mg/dL (8.4-10.2); Carbon Dioxide 23 mmol/L (22-30); Chloride 92 mmol/L (98-107); Estimated CRCL calculation 43 ml/min; Estimated Glomerular Filt Rate > 60; Glucose 125 mg/dL (65-110); Potassium 4.8 mmol/L (3.4-5.0); Sodium 123 mmol/L (137-145)
[2021-04-07 08:41] LABS: Creatinine Urine 122.6 mg/dL
[2021-04-07 08:46] LABS: Acanthocytes 1+ (NORMAL); Anisocytosis 1+ (NORMAL); Ovalocytes 1+ (NORMAL); Platelet Estimate Adequate (Adequate)
[2021-04-07] MEDS: amLODIPine BESYLATE 5 MG TABLET 10 MG PO (09:12)
[2021-04-07] MEDS: PRAVASTATIN SODIUM 20 MG TABLET PO (09:13)
[2021-04-07] MEDS: SODIUM CHLORIDE 0.9% IV 1,000 ML 75 ML IV CONT (10:52)
[2021-04-07] MEDS: KETOROLAC 15 MG/ML VIAL (*BKC) IV PUSH (12:49)
[2021-04-07] MEDS: HYDROcodone/acetaminophen (*CRX) 5-325 MG TABLET 1 TAB PO (14:25)
--- NOTE | 2021-04-07 19:02 | PM.PNORT ---
Progress Note: A&P Additional Plan For surgery in AM hemiarthroplasty planned. Medicine has seen and cardiology cleared for surg. NPO ordered. Subjective Subjective Date/Time Seen: 04/07/21 19:02 Principal diagnosis: Right hip fx Interval history: Pt seen at bedside. I reviewed the risks, benefits and alternative treatments with the patient. Cardiology has seen and she is a moderate cardiac risk. Exam Extrem: Other: Right leg ER and min shortened. Calves NT bilat NV intact distally thigh supple and min tender log roll painful Objective Data Vital Signs Vital Signs: Vital Signs - 24 hr 04/06/21 19:32 04/06/21 20:23 04/06/21 20:43 Temperature Pulse Rate 89 85 90 Respiratory Rate 12 11 L 16 Blood Pressure 144/83 H 152/61 H Pulse Oximetry 90 94 94 04/06/21 20:44 04/06/21 21:08 04/06/21 22:34 Temperature Pulse Rate 88 86 Respiratory Rate 14 10 L Blood Pressure 163/55 H Pulse Oximetry 96 98 97 04/06/21 22:45 04/06/21 22:46 04/06/21 22:47 Temperature Pulse Rate 90 84 84 Respiratory Rate 22 H 17 17 Blood Pressure 158/63 H 159/61 H Pulse Oximetry 96 96 96 04/07/21 00:27 04/07/21 00:30 04/07/21 00:31 Temperature Pulse Rate 82 88 86 Respiratory Rate 11 L 14 18 Blood Pressure 152/65 H Pulse Oximetry 99 98 97 04/07/21 00:45 04/07/21 00:46 04/07/21 01:00 Temperature Pulse Rate 93 88 93 Respiratory Rate 22 H 12 29 H Blood Pressure 164/60 H Pulse Oximetry 100 04/07/21 01:01 04/07/21 01:30 04/07/21 01:31 Temperature Pulse Rate 94 94 90 Respiratory Rate 16 24 H 16 Blood Pressure 153/60 H 158/69 H Pulse Oximetry 04/07/21 01:40 04/07/21 02:17 04/07/21 06:00 Temperature 36.7 C Pulse Rate 87 91 Respiratory Rate 16 16 Blood Pressure 162/66 H Pulse Oximetry 86 L 98 98 04/07/21 14:29 04/07/21 14:53 Temperature 36.6 C Pulse Rate 89 Respiratory Rate 14 Blood Pressure 159/58 H Pulse Oximetry 96 96 Intake/Output Intake/Output: Intake & Output 04/04/21 04/05/21 04/06/21 04/07/21 23:59 23:59 23:59 23:59 Intake Total 500 1940 Output Total 1200 Balance 500 740 Meds/Results Medications: Active Medications Generic Name Dose Route Start Last Admin Trade Name Freq PRN Reason Stop Dose Admin Hydrocodone Bitart/Acetaminophen 1 tab 04/07/21 12:22 04/07/21 14:25 Hydrocodone/Acetaminophen (*Crx) 5-325 Mg Tablet PO 1 tab Q6H PRN Administration Pain Rated 4-6 Amlodipine Besylate 10 mg 04/08/21 09:00 Amlodipine Besylate 5 Mg Tablet PO DAILY MILAN Sodium Chloride 37.7 ml/ 0 ml 04/08/21 06:00 Morphine Sulfate 2 mg/ INFILTRATE 04/08/21 06:01 Ropivacaine 200 mg/ Ketorolac ONCE ONE Tromethamine 15 mg/ Epinephrine HCl 0.3 mg Hydromorphone HCl 1 mg 04/07/21 01:12 04/07/21 10:51 Hydromorphone Hcl Inj (*Crx) 1 Mg/Ml Syr IV PUSH 1 mg Q3H PRN Administration Pain Rated 7-10 Sodium Chloride 1,000 mls @ 75 mls/hr 04/06/21 17:55 04/07/21 10:52 Normal Saline Iv IV CONT 75 mls/hr .[id number] MILAN Administration Tranexamic Acid/Sodium Chloride 1,000 mg in 100 mls @ 200 mls/hr 04/08/21 18:08 Tranexamic Acid 1,000mg/[id number] IVPB 04/08/21 18:37 ONCE ONE Acetaminophen 1,000 mg in 100 mls @ 400 mls/hr 04/07/21 12:22 04/07/21 17:52 Ofirmev 1,000 Mg Ivpb IVPB 04/08/21 12:21 400 mls/hr Q6H PRN Administration Pain Rated 1-3 Irbesartan 300 mg 04/08/21 09:00 Irbesartan 150 Mg Tablet PO DAILY MILAN Naloxone HCl 0.4 mg 04/07/21 01:13 Naloxone Hcl 0.4 Mg/Ml Vial IV PUSH Q5MIN PRN Sedation Non-Formulary Medication 1 cap 04/08/21 09:00 Co [id number]-[place] 3-E PO 05/08/21 08:[address] [facility] Non-Formulary Medication 50 mcg 04/08/21 09:00 Cyanocobalamin (Vitamin B-12) [Vitamin B-12] PO 05/08/21 08:[address] [facility] Pravastatin Sodium 20 mg 04/07/21 09:00 04/07/21 09:13 Pravastatin Sodium 20 Mg Tablet PO 20 mg DAILY MILAN
[2021-04-08] VITALS (21 sets, daily range): BP systolic 103–159; BP diastolic 47–63; PULSE 71–108; RESP 10–16; TEMP 36.1–37.3; O2SAT 91–99
[2021-04-08] MEDS: SODIUM CHLORIDE 0.9% IV 1,000 ML 75 ML IV CONT (00:25)
--- NOTE | 2021-04-08 07:55 | PM.PNCARD ---
Progress Note: A&P Assessment and Plan (1) Preop cardiovascular exam: Code(s): Z01.810 - Encounter for preprocedural cardiovascular examination Status: Acute Assessment and Plan: Asymptomatic from cardiac standpoint. Risk profile: age, PAD, severe , hypertension, dyslipidemia. Functional status: >4 METs. Surgical risk: Moderate orthopedic surgery. Overall risk stratification: She is at moderate cardiac risk for noncardiac surgery. Her last nuclear stress test was July 2018 that was normal. She needs to weigh risks/benefits of surgery with orthopedic surgeon. She is going for hip surgery today. Check postop EKG. Correct electrolytes with sodium 123 and potassium 4.8. Spironolactone and Irbesartan on hold. Receiving IVF to treat dehydration and replete sodium level. (2) Aortic stenosis: Code(s): I35.0 - Nonrheumatic aortic (valve) stenosis Status: Acute Assessment and Plan: Severe. Asymptomatic. No need for valve replacement at this time. (3) PAD (peripheral artery disease): Code(s): I73.9 - Peripheral vascular disease, unspecified Status: Acute Assessment and Plan: Right with severe PAD and mod on left leg. (4) Dyslipidemia: Code(s): E78.5 - Hyperlipidemia, unspecified Status: Acute Assessment and Plan: On Pravastatin. (5) HTN (hypertension): Code(s): I10 - Essential (primary) hypertension Status: Acute Assessment and Plan: This could be exacerbated by hip pain. Mildly high. Resumed Amlodipine 10 mg daily. If BP still high, would start her on Hydralazine. (6) LBBB (left bundle branch block): Code(s): I44.7 - Left bundle-branch block, unspecified Status: Acute Subjective Date/time seen: 04/08/21 07:55 Reports hip pain. No chest pain or sob. Exam Const: General: cooperative, healthy appearing and comfortable Resp: Auscultation: clear to auscultation bilaterally, no crackles, no rales, no rhonchi and no wheezes Cardio: Jugular venous distension: no JVD Rate: regular rate Rhythm: regular rhythm Heart sounds: Murmur heart sound present (V/ systolic murmur RICS) GI: GI Palp: No abdominal tenderness and Yes Soft to palpation Neuro: General: oriented to person, oriented to place and oriented to time Extrem: Right lower extremity: no edema Left lower extremity: no edema Objective Data Vital Signs Vital Signs: Vital Signs - 24 hr 04/07/21 14:29 04/07/21 14:53 04/07/21 21:10 Temperature 97.9 F 97 F L Pulse Rate 89 72 Respiratory Rate 14 16 Blood Pressure 159/58 H 108/56 L Pulse Oximetry 96 96 93 04/08/21 05:35 Temperature 97.5 F L Pulse Rate 95 Respiratory Rate 16 Blood Pressure 147/55 H Pulse Oximetry 94 Intake/Output Intake/Output: Intake & Output 04/05/21 04/06/21 04/07/21 04/08/21 23:59 23:59 23:59 23:59 Intake Total 500 2240 1150 Output Total 1200 375 Balance 500 1040 775 Meds/Results Medications: Active Medications Generic Name Dose Route Start Last Admin Trade Name Freq PRN Reason Stop Dose Admin Hydrocodone Bitart/Acetaminophen 1 tab 04/07/21 12:22 04/07/21 14:25 Hydrocodone/Acetaminophen (*Crx) 5-325 Mg Tablet PO 1 tab Q6H PRN Administration Pain Rated 4-6 Amlodipine Besylate 10 mg 04/08/21 09:00 Amlodipine Besylate 5 Mg Tablet PO DAILY MILAN Hydromorphone HCl 1 mg 04/07/21 01:12 04/07/21 20:48 Hydromorphone Hcl Inj (*Crx) 1 Mg/Ml Syr IV PUSH 1 mg Q3H PRN Administration Pain Rated 7-10 Sodium Chloride 1,000 mls @ 75 mls/hr 04/06/21 17:55 04/08/21 00:25 Normal Saline Iv IV CONT 75 mls/hr .[id number] MILAN Administration Tranexamic Acid/Sodium Chloride 1,000 mg in 100 mls @ 200 mls/hr 04/08/21 18:08 Tranexamic Acid 1,000mg/[id number] IVPB 04/08/21 18:37 ONCE ONE Acetaminophen 1,000 mg in 100 mls @ 400 mls/hr 04/07/21 12:22 04/07/21 17:52 Ofirmev 1,000 Mg Ivpb IVPB 04/08/21 12:21 400 mls/hr Q
[2021-04-08] MEDS: amLODIPine BESYLATE 5 MG TABLET 10 MG PO (08:04)
[2021-04-08 08:57] LABS: Basophils Absolute Auto 0.1 K/mm3 (0.0-0.1); Basophils Percent Auto 0.3 % (0.2-1.2); Eosinophils Absolute Auto 0.1 K/mm3 (0-0.3); Eosinophils Percent Auto 0.4 % (0-4.4); Hematocrit 31.5 % (37.0-47.0); Hemoglobin 10.6 g/dL (12.0-15.0); Immature Granulocyte Absolute 0.07 K/mm3 (0.00-0.031); Immature Granulocyte Percent A 0.4 % (0-0.5); Lymphocytes Absolute Auto 5.45 K/mm3 (0.9-3.2); Lymphocytes Percent Auto 33.9 % (18.3-44.2); Mean Corpuscular HGB Conc 33.7 g/dl (32-36); Mean Corpuscular Hemoglobin 31.1 pg (26-34); Mean Corpuscular Volume 92.4 fl (80-100); Mean Platelet Volume 8.1 fl (7.4-10.4); Monocytes Absolute Auto 0.8 K/mm3 (0.1-0.6); Neutrophils Absolute Auto 9.6 K/mm3 (1.3-6.7); Platelet Count Result 234 k/mm3 (150-375); Red Blood Count 3.41 M/mm3 (4.2-5.4); Red Cell Distribution Width 12.3 % (11.5-14.5); White Blood Count 16.1 K/mm3 (4.5-10.0)
--- NOTE | 2021-04-08 09:17 | WPDANESEPPF ---
Anes - Initial Pre Proc Eval Procedure: Operation Date: 04/08/21 10:30 Proposed Procedures p Right Hip Hemiarthroplasty - Brody Walls MD Date/Time: 04/08/21 09:17 Surgeon: Kajal Sellers MD Pre Op Diagnosis: right hip fracture Patient Data Age: 86 Gender: F Height: 1.55 m Weight: 96.6 kg Last Vital Signs Temp 36.4 C L 04/08/21 05:35 Pulse 95 04/08/21 05:35 Resp 16 04/08/21 05:35 BP 147/55 H 04/08/21 05:35 Pulse Ox 94 04/08/21 05:35 Allergies Allergy/AdvReac Type Severity Reaction Status Date / Time No Known Allergies Allergy Verified 04/06/21 15:26 Home Medications Medication Instructions Recorded Confirmed Type amlodipine 5 mg tablet 10 mg PO DAILY tablet 05/30/19 04/07/21 History aspirin 81 mg tablet,delayed 81 mg PO DAILY 05/30/19 04/07/21 History release irbesartan 150 mg tablet 300 mg PO DAILY tablet 05/30/19 04/07/21 History compr.stocking,knee,long,small #12 each 05/31/19 04/07/21 Rx furosemide 20 mg tablet 20 mg PO QAM #30 tablet 04/28/20 04/07/21 Rx pravastatin 20 mg tablet 20 mg PO DAILY #90 tablet 08/11/20 04/07/21 Rx spironolactone 25 mg tablet 25 mg PO DAILY 10/29/20 04/07/21 History cholecalciferol (vitamin D3) 125 mcg PO DAILY 04/07/21 04/07/21 History co [id number] oil-omega 3-E 1 cap PO DAILY 04/07/21 04/07/21 History cyanocobalamin (vitamin B-12) 50 mcg PO DAILY 04/07/21 04/07/21 History [Vitamin B-12] glucosamine sulfate [Glucosamine] 500 mg PO DAILY 04/07/21 04/07/21 History Laboratory Tests 04/08/21 04/08/21 08:38 08:38 WBC 16.1 K/mm3 H K/mm3 (4.5-10.0) RBC 3.41 M/mm3 L M/mm3 (4.2-5.4) Hgb 10.6 g/dL L g/dL (12.0-15.0) Hct 31.5 % L % (37.0-47.0) MCV 92.4 fl fl (80-100) MCH 31.1 pg pg (26-34) MCHC 33.7 g/dl g/dl (32-36) RDW 12.3 % % (11.5-14.5) Plt Count 234 k/mm3 k/mm3 (150-375) MPV 8.1 fl fl (7.4-10.4) Immature Gran % (Auto) 0.4 % % (0-0.5) Neut % (Auto) 60.0 % % (45.5-73.1) Lymph % (Auto) 33.9 % % (18.3-44.2) Hill % (Auto) 5.0 % % (2.6-8.5) Eos % (Auto) 0.4 % % (0-4.4) Baso % (Auto) 0.3 % % (0.2-1.2) Lymph # (Auto) 5.45 K/mm3 H K/mm3 (0.9-3.2) Hill # (Auto) 0.8 K/mm3 H K/mm3 (0.1-0.6) Eos # (Auto) 0.1 K/mm3 K/mm3 (0-0.3) Baso # (Auto) 0.1 K/mm3 K/mm3 (0.0-0.1) Abs Immat Gran (auto) 0.07 K/mm3 H K/mm3 (0.00-0.031) Absolute Neuts (auto) 9.6 K/mm3 H K/mm3 (1.3-6.7) Absolute Nucleated RBC 0.0 K/mm3 K/mm3 (0.0-0.012) Nucleated RBC % 0.0 % % (0.0-0.2) Sodium Pending Potassium Pending Chloride Pending Carbon Dioxide Pending Anion Gap Pending BUN Pending Creatinine Pending Estim Creat Clear Calc Pending Estimated GFR Pending Glucose Pending Calcium Pending Total Bilirubin Pending AST Pending ALT Pending Alkaline Phosphatase Pending Total Protein Pending Albumin Pending Patient hx anesthesia problems: none Family hx anesthesia problems: none Results Review: All pre-operative results and documents have been reviewed as part of the pre-operative evaluation. PMFSH Past Medical History Medical History (Updated 04/06/21 @ 23:00 by Lissette Devine PA-C) Aortic stenosis Severe aortic stenosis with a valve area of 0.9 cm2 on echocardiogram in October 2020. Chronic hyponatremia Chronic lymphocytic leukemia Diastolic dysfunction 11/05/20 Echo: EF 65-70%, mild LVH, grade I diastolic dysfunction (E/e' 16), mild LAE, severe (CHANDLER 0.9 cm2), mild AI/TR, RVSP 49 mmHg. Dyslipidemia Hypertension Left bundle branch block Lexiscan Myoview negative for ischemia in July 2018. Peripheral arterial disease Arterial Duplex LE on 07/12/2018: Left 0.73 and right LNAIE 0.37. Right brachial 220 and
[2021-04-08] MEDS: HYDROmorphone HCL INJ (*CRX) 1 MG/ML SYR IV PUSH (09:24)
[2021-04-08] MEDS: LACTATED RINGERS 1,000 ML 30 ML IV CONT (09:24)
[2021-04-08] MEDS: TRANEXAMIC ACID 1,000MG/ISO100 1,000 MG/100 ML BAG 200 MG IVPB (09:25)
[2021-04-08 09:30] LABS: Alanine Aminotransferase 16 U/L (4-35); Albumin Level 3.3 g/dL (3.5-5.1); Alkaline Phosphatase 76 U/L (38-126); Anion Gap 6 mmol/L (8-16); Aspartate Amino Transferase 36 U/L (14-36); Bilirubin,Total 0.4 mg/dL (0.2-1.3); Blood Urea Nitrogen 8 mg/dL (7-17); Calcium 8.2 mg/dL (8.4-10.2); Carbon Dioxide 22 mmol/L (22-30); Chloride 95 mmol/L (98-107); Estimated CRCL calculation 61 ml/min; Estimated Glomerular Filt Rate > 60; Glucose 109 mg/dL (65-110); Potassium 4.5 mmol/L (3.4-5.0); Sodium 123 mmol/L (137-145)
[2021-04-08] MEDS: ONDANSETRON INJ 4 MG/2 ML VIAL IV PUSH (09:31)
--- NOTE | 2021-04-08 09:57 | WPDHPUPDATE1 ---
History and Physical Update Update Date/Time: 04/08/21 09:57 History and Physical has been reviewed, including an updated exam of the patient. There are NO changes in the patient's condition. Risks, benefits, and alternatives have been discussed and questions answered. Patient agrees to proceed with procedure.
[2021-04-08] MEDS: ceFAZolin 2 GM/D5W 50 ML 2 GM/50 ML BAG IVPB (10:51)
--- NOTE | 2021-04-08 12:09 | W.PM.PROC2 ---
Procedure Note - Detailed Date of Procedure 04/08/21 Pre-op Diagnosis right hip fracture Garden 3 femoral neck fracture Post-op Diagnosis same Procedure Performed Right Hip Hemiarthroplasty Surgeon Brody Walls MD Detonator Assembler Magen Anesthesia general Description of Procedure The patient was identified and brought to the operating room. General anesthesia was induced. Patient was positioned into the left lateral decubitus which presented the right broken hip to the surgeon. Care was taken to pad all the bony prominences. An axillary roll was utilized. Once the patient positioned was checked we proceeded with sterile prep and drape. Once this was accomplished the anatomical landmarks were identified the greater trochanter was drawn on the femur. A curvilinear incision from the posterior superior iliac spine around the posterior 1/3 of the greater trochanter and then down the line of the femoral shaft was made. This was about 10 cm in length. This was taken sharply through the skin and subcutaneous tissues down to the level of the fascia sepideh. The fascia sepideh was incised and I was able to palpate the gluteus prisca posteriorly. We then opened the fascia sepideh distally and the superior fascia of the gluteus proximally. Then split the gluteus and a Charnley C retractor was placed. Care was taken to protect the sciatic nerve posteriorly. The external rotate were then noted and the abductor tendons were bluntly dissected off the capsule. A Kober retractor was used to retract these tendons. The piriformis was then identified and this was removed from the piriformis fossa with Bovie electrocautery. The capsule was then T'd and each leaflet of the capsule was tagged with tag sutures. The quadratus femoris was removed in its upper 1/3 great care was taken to use Bovie electrocautery as this area can have some bleeding. The femoral head and neck was then appropriately exposed. The head was positioned so as to allow the insertion of a corkscrew. Once this was seated in the femoral head was removed from the acetabulum. Bovie electrocautery was used to coagulate the ligamentum teres. The acetabulum was then cleaned of any extraneous tissues. The head measured 46 mm. The femoral neck was then cut. The femoral neck guide was used and then a saw was used. An excellent cut was achieved. The acetabulum was incised and the 46 mm trial hip ball fit the most appropriate. The femoral shaft and canal were then determined with the Мария. And then the T-handled canal finer was utilized. I then sequentially broached in about 15-20 degrees of anteversion up to a number 5 implant. Trial reduction was then done with the 0 neck length in the 46 mm head. The leg lengths were equal. The hip was taken past 90?. Push-pull was negative. The hip was then the deducted to about 45-50 degrees. Internal rotation to about 40? was able before the hip even started to sublux posteriorly. This was found to be excellent stability. We decided on the number 5 implant. Then this was placed. Trial reduction was done and the stability was good. The 0 neck length and a 46 mm endoprosthesis for chosen and placed. This was found to be equally stable as the trials. The wounds were then copiously irrigated. The capsule was closed with 2. Ethibond in a running locking stitch. Drill hole made in the posterior greater trochanter and the capsular stitches and the piriformis tendon were brought it through the drill holes back into their Woody position on the posterior greater trochanter. The wound was copiously irrigated again and 2 x 2 Ethibond was used to close the fascia sepideh in a [id number] fashion. A and O used to close the gluteus prisca tendon. 2-0 Vicryl was used to close the subcutaneous tissues. A 3-0 Quill was used for the skin in a subcuticular fashion. Surgical glue was utilized to close the skin. A number Mepilex silver impregnated dressing was applied. Patient did we
[2021-04-08] MEDS: HALOPERIDOL LACTATE 5 MG/ML VIAL 1 MG IV PUSH (14:07)
--- NOTE | 2021-04-08 16:30 | P.PNIM_ITS ---
Progress Note: A&P Assessment and Plan (1) Subcapital fracture of right femur: Code(s): S72.011A - Unspecified intracapsular fracture of right femur, initial encounter for closed fracture Status: Acute Assessment and Plan: * POD 0 * Hip xray found acute subcapital right femoral neck fracture * Dr. Walls has been consulted * Surgical intervention scheduled Tuesday morning * NPO after midnight on Tuesday * Analgesics available as needed * Cefazolin x 3 bags * DVT per Ortho * Continue bedrest * PT/OT (2) Dehydration: Code(s): E86.0 - Dehydration Status: Acute Assessment and Plan: * BUN/Cr 8/0.60 * Na is low at 123 * Trend urine output * Encourage PO intake (3) Hyperkalemia: Code(s): E87.5 - Hyperkalemia Status: Acute Assessment and Plan: * K is 5.6 on arrival, currently 4.5 * IV hydration * Spironolactone is on hold * Trend labs (4) Chronic hyponatremia: Code(s): E87.1 - Hypo-osmolality and hyponatremia Status: Acute Assessment and Plan: * Baseline sodium is in the upper 120s to low 130s * Current sodium is 123 * Continue to trend sodium levels * Urine Creatinine is 122.6 * Urine and serum osmolality is still pending * urine sodium 24 * Will get a FENa score once all labs are back (5) Aortic stenosis: Code(s): I35.0 - Nonrheumatic aortic (valve) stenosis Status: Acute Assessment and Plan: * Followed by Dr. Urena, who has been consulted to help stratify her cardiac risk preoperatively. (6) Diastolic dysfunction: Code(s): I51.89 - Other ill-defined heart diseases Status: Acute Assessment and Plan: * Echo from Oct shows diastolic dysfunction grade one with EF of 65-70% * Seems compensated * Avoid over-hydration. (7) Hypertension: Code(s): I10 - Essential (primary) hypertension Status: Acute Assessment and Plan: * 115/62 currently * furosemide and spironolactone on hold * Trend blood pressure * adjust therapy as indicated (8) Peripheral arterial disease: Code(s): I73.9 - Peripheral vascular disease, unspecified Status: Acute Assessment and Plan: * No acute issues. (9) Chronic lymphocytic leukemia: Code(s): C91.10 - Chronic lymphocytic leukemia of B-cell type not having achieved remission Status: Acute Assessment and Plan: * White blood cell count is 16.1 * likely a stress response from fall and fracture. Monitor. Subjective Date/time seen: 04/08/21 16:20 Interval history: Date/Time: 04/06/21 16:40 Narrative: This is a pleasant 86-year-old female with history of aortic stenosis, hypertension, dyslipidemia, chronic left bundle branch block, peripheral arterial disease, chronic lymphocytic leukemia, chronic hyponatremia, and several other comorbidities who presented to the emergency department earlier today via EMS for evaluation of right hip pain after a fall. She had been vacuuming this morning and unfortunately tripped over the cord causing her to fall onto her right side, striking her right elbow and right hip on the floor. She was eventually able to crawl to a nearby chair and pull herself up however when she attempted to stand she was unable to bear weight on the right leg due to pain in the hip. X-ray in the emergency department showed acute right subcapital femoral neck fracture and she is being admitted in this
--- NOTE | 2021-04-08 16:30 | PM.IMPN ---
Progress Note: A&P Assessment and Plan (1) Subcapital fracture of right femur: Code(s): S72.011A - Unspecified intracapsular fracture of right femur, initial encounter for closed fracture Status: Acute Assessment and Plan: POD 0 Hip xray found acute subcapital right femoral neck fracture Dr. Walls has been consulted Surgical intervention scheduled Tuesday morning NPO after midnight on Tuesday Analgesics available as needed Cefazolin x 3 bags DVT per Ortho Continue bedrest PT/OT (2) Dehydration: Code(s): E86.0 - Dehydration Status: Acute Assessment and Plan: BUN/Cr 8/0.60 Na is low at 123 Trend urine output Encourage PO intake (3) Hyperkalemia: Code(s): E87.5 - Hyperkalemia Status: Acute Assessment and Plan: K is 5.6 on arrival, currently 4.5 IV hydration Spironolactone is on hold Trend labs (4) Chronic hyponatremia: Code(s): E87.1 - Hypo-osmolality and hyponatremia Status: Acute Assessment and Plan: Baseline sodium is in the upper 120s to low 130s Current sodium is 123 Continue to trend sodium levels Urine Creatinine is 122.6 Urine and serum osmolality is still pending urine sodium 24 Will get a FENa score once all labs are back (5) Aortic stenosis: Code(s): I35.0 - Nonrheumatic aortic (valve) stenosis Status: Acute Assessment and Plan: Followed by Dr. Urena, who has been consulted to help stratify her cardiac risk preoperatively. (6) Diastolic dysfunction: Code(s): I51.89 - Other ill-defined heart diseases Status: Acute Assessment and Plan: Echo from Oct shows diastolic dysfunction grade one with EF of 65-70% Seems compensated Avoid over-hydration. (7) Hypertension: Code(s): I10 - Essential (primary) hypertension Status: Acute Assessment and Plan: 115/62 currently furosemide and spironolactone on hold Trend blood pressure adjust therapy as indicated (8) Peripheral arterial disease: Code(s): I73.9 - Peripheral vascular disease, unspecified Status: Acute Assessment and Plan: No acute issues. (9) Chronic lymphocytic leukemia: Code(s): C91.10 - Chronic lymphocytic leukemia of B-cell type not having achieved remission Status: Acute Assessment and Plan: White blood cell count is 16.1 likely a stress response from fall and fracture. Monitor. Subjective Date/time seen: 04/08/21 16:20 Interval history: Date/Time: 04/06/21 16:40 Narrative: This is a pleasant 86-year-old female with history of aortic stenosis, hypertension, dyslipidemia, chronic left bundle branch block, peripheral arterial disease, chronic lymphocytic leukemia, chronic hyponatremia, and several other comorbidities who presented to the emergency department earlier today via EMS for evaluation of right hip pain after a fall. She had been vacuuming this morning and unfortunately tripped over the cord causing her to fall onto her right side, striking her right elbow and right hip on the floor. She was eventually able to crawl to a nearby chair and pull herself up however when she attempted to stand she was unable to bear weight on the right leg due to pain in the hip. X-ray in the emergency department showed acute right subcapital femoral neck fracture and she is being admitted in this setting. She denies head trauma and loss of consciousness in the fall and she sustained no other injuries aside from hip fracture and a skin tear to the right elbow. She has minimal discomfort when lying still but has sharp spasming pains with any movement of the right hip. She denies paresthesias, skin color, and temperature changes distal to the fracture. Preop labs done in the emergency department showed several abnormalities including acute on chronic hyponatremia, mild hyperkalemia, and increased creatinine from base
--- NOTE | 2021-04-08 17:27 | ADMGEN ---
This patient, Martha Martinez, was admitted to [facility] Surgery-6. Patient/family oriented to hospital policies and general routines including ID bracelet, bed and alarms, visiting hours, pain management, procedures, bathroom and other care routines, personal items, smoking policy, room service/diet, and visiting hours. Information on how to activate the Rapid Response Team has been discussed. Patient/Family are encouraged to report perceived risks to care and to ask questions if they do not understand what they are told or what they should do.
[2021-04-09] VITALS (7 sets, daily range): BP systolic 134–164; BP diastolic 47–76; PULSE 89–98; RESP 16; TEMP 36.9–37.4; O2SAT 87–97
[2021-04-09] MEDS: HYDROcodone/acetaminophen (*CRX) 5-325 MG TABLET 1 TAB PO ×3 (00:55→20:45)
--- NOTE | 2021-04-09 08:01 | ECG_ITS ---
Measurements Intervals [place] Rate: 82 P: 47 LA: 144 QRS: 12 QRSD: 134 T: 210 QT: 368 QTc: 432 Interpretive Statements SINUS RHYTHM LEFT BUNDLE BRANCH BLOCK BASELINE WANDER- V3 ABNORMAL ECG Electronically Signed On 04-09-2021 12:57:19 MUNITIONS HANDLER SUPERVISOR by Danis Urena D.O.
--- NOTE | 2021-04-09 08:01 | PM.PNCARD ---
Progress Note: A&P Assessment and Plan (1) Preop cardiovascular exam: Code(s): Z01.810 - Encounter for preprocedural cardiovascular examination Status: Acute Assessment and Plan: Asymptomatic from cardiac standpoint. Risk profile: age, PAD, severe , hypertension, dyslipidemia. Functional status: >4 METs. Surgical risk: Moderate orthopedic surgery. Overall risk stratification: She is at moderate cardiac risk for noncardiac surgery. Her last nuclear stress test was July 2018 that was normal. She needs to weigh risks/benefits of surgery with orthopedic surgeon. She is going for hip surgery today. Check postop EKG. Correct electrolytes with sodium 123. Spironolactone on hold. Receiving IVF to treat dehydration and replete sodium level. (2) Aortic stenosis: Code(s): I35.0 - Nonrheumatic aortic (valve) stenosis Status: Acute Assessment and Plan: Severe. Asymptomatic. No need for valve replacement at this time. (3) PAD (peripheral artery disease): Code(s): I73.9 - Peripheral vascular disease, unspecified Status: Acute Assessment and Plan: Right with severe PAD and mod on left leg. (4) Dyslipidemia: Code(s): E78.5 - Hyperlipidemia, unspecified Status: Acute Assessment and Plan: On Pravastatin. (5) HTN (hypertension): Code(s): I10 - Essential (primary) hypertension Status: Acute Assessment and Plan: Stable Resumed Amlodipine 10 mg daily and Irbesartan 300 mg daily. If BP still high, would start her on Hydralazine. (6) LBBB (left bundle branch block): Code(s): I44.7 - Left bundle-branch block, unspecified Status: Acute Subjective Date/time seen: 04/09/21 08:01 Saw the patient in PACU. Denies chest pain or sob. Has some right hip and lower back pain. Exam Const: General: cooperative, healthy appearing and comfortable Resp: Auscultation: clear to auscultation bilaterally, no crackles, no rales, no rhonchi and no wheezes Cardio: Jugular venous distension: no JVD Rate: regular rate Rhythm: regular rhythm Heart sounds: Murmur heart sound present (V/ systolic murmur RICS) GI: GI Palp: No abdominal tenderness and Yes Soft to palpation Neuro: General: oriented to person, oriented to place and oriented to time Extrem: Right lower extremity: no edema Left lower extremity: no edema Objective Data Vital Signs Vital Signs: Vital Signs - 24 hr 04/08/21 09:30 04/08/21 12:40 04/08/21 12:50 Temperature 99.1 F 98 F Pulse Rate 108 H 71 80 Respiratory Rate 16 10 L 15 Blood Pressure 159/57 H 123/48 L 106/51 L Pulse Oximetry 91 99 99 04/08/21 13:00 04/08/21 13:10 04/08/21 13:20 Temperature Pulse Rate 75 73 75 Respiratory Rate 16 15 15 Blood Pressure 103/55 L 118/50 L 106/60 Pulse Oximetry 94 94 96 04/08/21 13:30 04/08/21 13:40 04/08/21 13:55 Temperature Pulse Rate 77 74 72 Respiratory Rate 16 16 12 Blood Pressure 129/58 L 105/53 L 111/47 L Pulse Oximetry 96 97 96 04/08/21 14:10 04/08/21 14:25 04/08/21 14:40 Temperature Pulse Rate Respiratory Rate Blood Pressure Pulse Oximetry 97 96 96 04/08/21 14:55 04/08/21 15:15 04/08/21 15:30 Temperature 97 F L Pulse Rate 86 83 Respiratory Rate 16 16 Blood Pressure 131/60 136/59 L Pulse Oximetry 96 94 94 04/08/21 15:45 04/08/21 16:00 04/08/21 16:10 Temperature Pulse Rate 90 83 89 Respiratory Rate 16 16 14 Blood Pressure 121/60 123/63 115/62 Pulse Oximetry 95 97 95 04/08/21 17:04 04/08/21 20:00 04/09/21 00:50 Temperature 97.6 F 99.3 F Pulse Rate 87 87 98 Respiratory Rate 12 12 16 Blood Pressure 139/60 140/52 L Pulse Oximetry 94 94 94 04/09/21 05:35 Temperature 98.9 F Pulse Rate 96 Respiratory Rate 16 Blood Pressure 135/76 Pulse Oximetry 96 Intake/Output Intake/Output: Intake & Output 04/06/21 04/07/21 04/08/21 04/09/21 23:59 23:59 23:59 23:59 Intake Total 500 2340 2750 450 Output Total 1200
[2021-04-09 08:39] LABS: Alanine Aminotransferase 17 U/L (4-35); Albumin Level 3.3 g/dL (3.5-5.1); Alkaline Phosphatase 71 U/L (38-126); Anion Gap 7 mmol/L (8-16); Aspartate Amino Transferase 30 U/L (14-36); Bilirubin,Total 0.3 mg/dL (0.2-1.3); Blood Urea Nitrogen 11 mg/dL (7-17); Calcium 8.5 mg/dL (8.4-10.2); Carbon Dioxide 23 mmol/L (22-30); Chloride 94 mmol/L (98-107); Estimated CRCL calculation 61 ml/min; Estimated Glomerular Filt Rate > 60; Glucose 146 mg/dL (65-110); Potassium 4.3 mmol/L (3.4-5.0); Sodium 124 mmol/L (137-145)
[2021-04-09 08:48] LABS: Basophils Percent Auto 0.1 % (0.2-1.2); Hematocrit 28.3 % (37.0-47.0); Hemoglobin 9.7 g/dL (12.0-15.0); Immature Granulocyte Absolute 0.18 K/mm3 (0.00-0.031); Immature Granulocyte Percent A 0.7 % (0-0.5); Lymphocytes Absolute Auto 8.24 K/mm3 (0.9-3.2); Mean Corpuscular HGB Conc 34.3 g/dl (32-36); Mean Corpuscular Hemoglobin 30.6 pg (26-34); Mean Corpuscular Volume 89.3 fl (80-100); Mean Platelet Volume 8.4 fl (7.4-10.4); Monocytes Absolute Auto 1.8 K/mm3 (0.1-0.6); Monocytes Percent Auto 7.5 % (2.6-8.5); Neutrophils Percent Auto 57.7 % (45.5-73.1); Platelet Count Result 245 k/mm3 (150-375); Red Blood Count 3.17 M/mm3 (4.2-5.4); Red Cell Distribution Width 11.9 % (11.5-14.5); White Blood Count 24.3 K/mm3 (4.5-10.0)
[2021-04-09] MEDS: CHOLECALCIFEROL 1,000 UNITS TABLET 5000 UNITS PO (09:17)
[2021-04-09] MEDS: IRBESARTAN 150 MG TABLET 300 MG PO (09:17)
[2021-04-09] MEDS: PRAVASTATIN SODIUM 20 MG TABLET PO (09:18)
[2021-04-09] MEDS: amLODIPine BESYLATE 5 MG TABLET 10 MG PO (09:19)
--- NOTE | 2021-04-09 10:39 | PM.PNORT ---
Progress Note: A&P Additional Plan POD # 1 right hemiarthroplasty encouraged hip precaution will need SNF supportive medical OT/PT seeing patient Subjective Subjective Date/Time Seen: 04/09/21 10:39 Post Op day: 1 Principal diagnosis: Right HIp fracture hemiarthroplasty Exam Extrem: Other: POD# 1 sitting up in chair NV intact distally calves NT bilat thigh was supple and min tender s. Objective Data Vital Signs Vital Signs: Vital Signs - 24 hr 04/08/21 12:40 04/08/21 12:50 04/08/21 13:00 Temperature 36.6 C Pulse Rate 71 80 75 Respiratory Rate 10 L 15 16 Blood Pressure 123/48 L 106/51 L 103/55 L Pulse Oximetry 99 99 94 04/08/21 13:10 04/08/21 13:20 04/08/21 13:30 Temperature Pulse Rate 73 75 77 Respiratory Rate 15 15 16 Blood Pressure 118/50 L 106/60 129/58 L Pulse Oximetry 94 96 96 04/08/21 13:40 04/08/21 13:55 04/08/21 14:10 Temperature Pulse Rate 74 72 Respiratory Rate 16 12 Blood Pressure 105/53 L 111/47 L Pulse Oximetry 97 96 97 04/08/21 14:25 04/08/21 14:40 04/08/21 14:55 Temperature Pulse Rate Respiratory Rate Blood Pressure Pulse Oximetry 96 96 96 04/08/21 15:15 04/08/21 15:30 04/08/21 15:45 Temperature 36.1 C L Pulse Rate 86 83 90 Respiratory Rate 16 16 16 Blood Pressure 131/60 136/59 L 121/60 Pulse Oximetry 94 94 95 04/08/21 16:00 04/08/21 16:10 04/08/21 17:04 Temperature 36.4 C Pulse Rate 83 89 87 Respiratory Rate 16 14 12 Blood Pressure 123/63 115/62 139/60 Pulse Oximetry 97 95 94 04/08/21 20:00 04/09/21 00:50 04/09/21 05:35 Temperature 37.4 C 37.2 C Pulse Rate 87 98 96 Respiratory Rate 12 16 16 Blood Pressure 140/52 L 135/76 Pulse Oximetry 94 94 96 Intake/Output Intake/Output: Intake & Output 04/06/21 04/07/21 04/08/21 04/09/21 23:59 23:59 23:59 23:59 Intake Total 500 2340 2750 450 Output Total 1200 485 350 Balance 500 1140 2265 100 Meds/Results Medications: Active Medications Generic Name Dose Route Start Last Admin Trade Name Freq PRN Reason Stop Dose Admin Hydrocodone Bitart/Acetaminophen 1 tab 04/07/21 12:22 04/09/21 10:21 Hydrocodone/Acetaminophen (*Crx) 5-325 Mg Tablet PO 1 tab Q6H PRN Administration Pain Rated 4-6 Amlodipine Besylate 10 mg 04/08/21 09:00 04/09/21 09:19 Amlodipine Besylate 5 Mg Tablet PO 10 mg DAILY MILAN Administration Hydromorphone HCl 1 mg 04/07/21 01:12 04/08/21 09:24 Hydromorphone Hcl Inj (*Crx) 1 Mg/Ml Syr IV PUSH 1 mg Q3H PRN Administration Pain Rated 7-10 Irbesartan 300 mg 04/08/21 09:00 04/09/21 09:17 Irbesartan 150 Mg Tablet PO 300 mg DAILY [facility]AN Administration Naloxone HCl 0.4 mg 04/07/21 01:13 Naloxone Hcl 0.4 Mg/Ml Vial IV PUSH Q5MIN PRN Sedation Non-Formulary Medication 1 cap 04/08/21 09:00 Co D56-Lrbl Oil-[place] 3-E PO 05/08/21 08:59 DAILY [facility] Non-Formulary Medication 50 mcg 04/08/21 09:00 Cyanocobalamin (Vitamin B-12) [Vitamin B-12] PO 05/08/21 08:59 DAILY [facility] Ondansetron HCl 4 mg 04/08/21 09:18 04/08/21 09:31 Ondansetron Inj 4 Mg/2 Ml Vial IV PUSH 4 mg ONCE PRN Administration Nausea Pravastatin Sodium 20 mg 04/07/21 09:00 04/09/21 09:18 Pravastatin Sodium 20 Mg Tablet PO 20 mg DAILY [facility] Administration Vitamin D 5,000 units 04/08/21 09:00 04/09/21 09:17 Cholecalciferol 1,000 Units Tablet PO 5,000 units DAILY [facility]AN Administration Radiology Results: ITS Impressions Hip/Pelvis X-Ray 04/06/21 15:51 IMPRESSION: 1. Acute subcapital right femoral neck fracture. Chest X-Ray 04/06/21 16:51 IMPRESSION: 1. No acute cardiopulmonary abnormality. Hip X-Ray 04/08/21 13:43 IMPRESSION: 1. Bipolar right hip hemiarthroplasty in near-anatomic alignment. Labs Labs: Laboratory Results - last 24 hr 04/09/21 04/09/21 08:16 08:16 WBC 24.3 H RBC 3.17 L Hgb 9.7 L Hct 28.3 L MCV 89.3 MCH 30.6
[2021-04-09 11:24] LABS: EDCOVIDSCREEN Negative (Negative)
--- NOTE | 2021-04-09 12:53 | P.DS_ITS ---
DS: Admitting Diagnosis Discharge Date Date/Time 04/09/21 1253 Admitting Diagnosis Hip arthroplasty DS: Discharge Diagnosis Discharge Diagnosis (1) Subcapital fracture of right femur: Code(s): S72.011A - Unspecified intracapsular fracture of right femur, initial encounter for closed fracture Status: Acute Assessment and Plan: * POD 1 * Hip xray found acute subcapital right femoral neck fracture * Dr. Walls has been consulted * Surgical intervention scheduled Tuesday * NPO after midnight on Tuesday * Analgesics available as needed * Cefazolin x 3 bags * DVT per Ortho * Continue bedrest * PT/OT (2) Dehydration: Code(s): E86.0 - Dehydration Status: Acute Assessment and Plan: * BUN/Cr 8/0.60 * Na is low at 123 * Trend urine output * Encourage PO intake (3) Hyperkalemia: Code(s): E87.5 - Hyperkalemia Status: Acute Assessment and Plan: * K is 5.6 on arrival, currently 4.5 * IV hydration * Spironolactone is on hold * Trend labs (4) Chronic hyponatremia: Code(s): E87.1 - Hypo-osmolality and hyponatremia Status: Acute Assessment and Plan: * Baseline sodium is in the upper 120s to low 130s * Current sodium is 123 * Continue to trend sodium levels * Urine Creatinine is 122.6 * Urine and serum osmolality is still pending * urine sodium 24 * Will get a FENa score once all labs are back (5) Aortic stenosis: Code(s): I35.0 - Nonrheumatic aortic (valve) stenosis Status: Acute Assessment and Plan: * Followed by Dr. Urena, who has been consulted to help stratify her cardiac risk preoperatively. (6) Diastolic dysfunction: Code(s): I51.89 - Other ill-defined heart diseases Status: Acute Assessment and Plan: * Echo from Oct shows diastolic dysfunction grade one with EF of 65-70% * Seems compensated * Avoid over-hydration. (7) Hypertension: Code(s): I10 - Essential (primary) hypertension Status: Acute Assessment and Plan: * 115/62 currently * furosemide and spironolactone on hold * Trend blood pressure * adjust therapy as indicated (8) Peripheral arterial disease: Code(s): I73.9 - Peripheral vascular disease, unspecified Status: Acute Assessment and Plan: * No acute issues. (9) Chronic lymphocytic leukemia: Code(s): C91.10 - Chronic lymphocytic leukemia of B-cell type not having achieved remission Status: Acute Assessment and Plan: * White blood cell count is 16.1 * likely a stress response from fall and fracture. Monitor. DS: Summary Time Spent with Patient Time attestation: Total time spent providing and/or coordinating discharge services: Exam Const: General: cooperative, healthy appearing, comfortable, no acute distress, well developed, alert and awake Nutritional Appearance: well nourished Orientation/consciousness: oriented to person, oriented to place, oriented to time and patient oriented x3 Limitations: no limitations HENMT: Head: normal to inspection Ears: hearing grossly normal bilaterally General nose exam: Normal external nose present Mouth: Yes Normal oral and palatal mucosa present, Yes lip normal and Yes tongue normal Teeth and gingiva: abnormal tooth and associated gingiva and poor dentition Eyes: General: appearance no
--- NOTE | 2021-04-09 12:53 | PM.DS ---
DS: Admitting Diagnosis Discharge Date Date/Time 04/09/21 1253 Admitting Diagnosis Hip arthroplasty DS: Discharge Diagnosis Discharge Diagnosis (1) Subcapital fracture of right femur: Code(s): S72.011A - Unspecified intracapsular fracture of right femur, initial encounter for closed fracture Status: Acute Assessment and Plan: POD 1 Hip xray found acute subcapital right femoral neck fracture Dr. Walls has been consulted Surgical intervention scheduled Tuesday morning NPO after midnight on Tuesday Analgesics available as needed Cefazolin x 3 bags DVT per Ortho Continue bedrest PT/OT (2) Dehydration: Code(s): E86.0 - Dehydration Status: Acute Assessment and Plan: BUN/Cr 8/0.60 Na is low at 123 Trend urine output Encourage PO intake (3) Hyperkalemia: Code(s): E87.5 - Hyperkalemia Status: Acute Assessment and Plan: K is 5.6 on arrival, currently 4.5 IV hydration Spironolactone is on hold Trend labs (4) Chronic hyponatremia: Code(s): E87.1 - Hypo-osmolality and hyponatremia Status: Acute Assessment and Plan: Baseline sodium is in the upper 120s to low 130s Current sodium is 123 Continue to trend sodium levels Urine Creatinine is 122.6 Urine and serum osmolality is still pending urine sodium 24 Will get a FENa score once all labs are back (5) Aortic stenosis: Code(s): I35.0 - Nonrheumatic aortic (valve) stenosis Status: Acute Assessment and Plan: Followed by Dr. Urena, who has been consulted to help stratify her cardiac risk preoperatively. (6) Diastolic dysfunction: Code(s): I51.89 - Other ill-defined heart diseases Status: Acute Assessment and Plan: Echo from Oct shows diastolic dysfunction grade one with EF of 65-70% Seems compensated Avoid over-hydration. (7) Hypertension: Code(s): I10 - Essential (primary) hypertension Status: Acute Assessment and Plan: 115/62 currently furosemide and spironolactone on hold Trend blood pressure adjust therapy as indicated (8) Peripheral arterial disease: Code(s): I73.9 - Peripheral vascular disease, unspecified Status: Acute Assessment and Plan: No acute issues. (9) Chronic lymphocytic leukemia: Code(s): C91.10 - Chronic lymphocytic leukemia of B-cell type not having achieved remission Status: Acute Assessment and Plan: White blood cell count is 16.1 likely a stress response from fall and fracture. Monitor. DS: Summary Time Spent with Patient Time attestation: Total time spent providing and/or coordinating discharge services: Exam Const: General: cooperative, healthy appearing, comfortable, no acute distress, well developed, alert and awake Nutritional Appearance: well nourished Orientation/consciousness: oriented to person, oriented to place, oriented to time and patient oriented x3 Limitations: no limitations HENMT: Head: normal to inspection Ears: hearing grossly normal bilaterally General nose exam: Normal external nose present Mouth: Yes Normal oral and palatal mucosa present, Yes lip normal and Yes tongue normal Teeth and gingiva: abnormal tooth and associated gingiva and poor dentition Eyes: General: appearance normal, both eyes and all related structures Neck: Neck: normal visual inspection, full ROM, trachea midline and supple Chest: Chest palpation & inspection: normal inspection of the chest Resp: Effort & Inspection: normal respiratory effort and able to speak in complete sentences Auscultation: clear to auscultation bilaterally, no crackles, no rales, no rhonchi and no wheezes Cardio: Jugular venous distension: no JVD Rate: regular rate Rhythm: regular rhythm Heart sounds: S1 normal heart sound present, S2 normal heart sound present and Murmur heart sound present (V/ systolic murmur
--- NOTE | 2021-04-09 12:58 | P.PNIM_ITS ---
Progress Note: A&P Assessment and Plan (1) Subcapital fracture of right femur: Code(s): S72.011A - Unspecified intracapsular fracture of right femur, initial encounter for closed fracture Status: Acute Assessment and Plan: * POD 1 * Hip xray found acute subcapital right femoral neck fracture * Dr. Walls has been consulted * Surgical intervention scheduled yesterday * Heart healthy diet * Analgesics available as needed * Cefazolin x 3 bags * DVT per Ortho * Continue bedrest * PT/OT (2) Dehydration: Code(s): E86.0 - Dehydration Status: Acute Assessment and Plan: * BUN/Cr 8/0.60 * Na is low at 124 * Trend urine output * Encourage PO intake (3) Hyperkalemia: Code(s): E87.5 - Hyperkalemia Status: Acute Assessment and Plan: * K is 5.6 on arrival, currently 4.5 * IV hydration * Spironolactone is on hold * Trend labs (4) Chronic hyponatremia: Code(s): E87.1 - Hypo-osmolality and hyponatremia Status: Acute Assessment and Plan: * Baseline sodium is in the upper 120s to low 130s * Current sodium is 123 * Continue to trend sodium levels * Urine Creatinine is 122.6 * Urine and serum osmolality is still pending * urine sodium 24 * Will get a FENa score once all labs are back (5) Aortic stenosis: Code(s): I35.0 - Nonrheumatic aortic (valve) stenosis Status: Acute Assessment and Plan: * Followed by Dr. Urena, who has been consulted to help stratify her cardiac risk preoperatively. * Reapeat ekg SR (6) Diastolic dysfunction: Code(s): I51.89 - Other ill-defined heart diseases Status: Acute Assessment and Plan: * Echo from Oct shows diastolic dysfunction grade one with EF of 65-70% * Seems compensated * Avoid over-hydration * Check a BNP * Daily weights * Trend output (7) Hypertension: Code(s): I10 - Essential (primary) hypertension Status: Acute Assessment and Plan: * 135/76 currently * furosemide and spironolactone on hold * Trend blood pressure * adjust therapy as indicated (8) Peripheral arterial disease: Code(s): I73.9 - Peripheral vascular disease, unspecified Status: Acute Assessment and Plan: * No acute issues. (9) Chronic lymphocytic leukemia: Code(s): C91.10 - Chronic lymphocytic leukemia of B-cell type not having achieved remission Status: Acute Assessment and Plan: * White blood cell count is 24.3 * likely a stress response from fall and fracture. Monitor. (10) Anemia: Code(s): D64.9 - Anemia, unspecified Status: Acute Assessment and Plan: * H/H 9.7/28.3 * Anemia labs pending * Supplemental as needed * Might be from blood loss from the surgical procedure * MCV is a little low at 89.3 Time Spent With Patient Time with patient: Greater than 35 minutes Subjective Date/time seen: 04/09/21 12:51 Interval history: Interval history: Date/Time: 04/06/21 16:40 Narrative: This is a pleasant 86-year-old female with history of aortic stenosis, hypertension, dyslipidemia, chronic left bundle branch block, peripheral arterial disease, chronic lymphocytic leukemia, chronic hyponatremia, and several other comorbidities who presented to the emergency department earlier today via EMS for evaluation of right hip pain after a fall.
--- NOTE | 2021-04-09 12:58 | PM.IMPN ---
Progress Note: A&P Assessment and Plan (1) Subcapital fracture of right femur: Code(s): S72.011A - Unspecified intracapsular fracture of right femur, initial encounter for closed fracture Status: Acute Assessment and Plan: POD 1 Hip xray found acute subcapital right femoral neck fracture Dr. Walls has been consulted Surgical intervention scheduled yesterday Heart healthy diet Analgesics available as needed Cefazolin x 3 bags DVT per Ortho Continue bedrest PT/OT (2) Dehydration: Code(s): E86.0 - Dehydration Status: Acute Assessment and Plan: BUN/Cr 8/0.60 Na is low at 124 Trend urine output Encourage PO intake (3) Hyperkalemia: Code(s): E87.5 - Hyperkalemia Status: Acute Assessment and Plan: K is 5.6 on arrival, currently 4.5 IV hydration Spironolactone is on hold Trend labs (4) Chronic hyponatremia: Code(s): E87.1 - Hypo-osmolality and hyponatremia Status: Acute Assessment and Plan: Baseline sodium is in the upper 120s to low 130s Current sodium is 123 Continue to trend sodium levels Urine Creatinine is 122.6 Urine and serum osmolality is still pending urine sodium 24 Will get a FENa score once all labs are back (5) Aortic stenosis: Code(s): I35.0 - Nonrheumatic aortic (valve) stenosis Status: Acute Assessment and Plan: Followed by Dr. Urena, who has been consulted to help stratify her cardiac risk preoperatively. Reapeat ekg SR (6) Diastolic dysfunction: Code(s): I51.89 - Other ill-defined heart diseases Status: Acute Assessment and Plan: Echo from Oct shows diastolic dysfunction grade one with EF of 65-70% Seems compensated Avoid over-hydration Check a BNP Daily weights Trend output (7) Hypertension: Code(s): I10 - Essential (primary) hypertension Status: Acute Assessment and Plan: 135/76 currently furosemide and spironolactone on hold Trend blood pressure adjust therapy as indicated (8) Peripheral arterial disease: Code(s): I73.9 - Peripheral vascular disease, unspecified Status: Acute Assessment and Plan: No acute issues. (9) Chronic lymphocytic leukemia: Code(s): C91.10 - Chronic lymphocytic leukemia of B-cell type not having achieved remission Status: Acute Assessment and Plan: White blood cell count is 24.3 likely a stress response from fall and fracture. Monitor. (10) Anemia: Code(s): D64.9 - Anemia, unspecified Status: Acute Assessment and Plan: H/H 9.7/28.3 Anemia labs pending Supplemental as needed Might be from blood loss from the surgical procedure MCV is a little low at 89.3 Time Spent With Patient Time with patient: Greater than 35 minutes Subjective Date/time seen: 04/09/21 12:51 Interval history: Interval history: Date/Time: 04/06/21 16:40 Narrative: This is a pleasant 86-year-old female with history of aortic stenosis, hypertension, dyslipidemia, chronic left bundle branch block, peripheral arterial disease, chronic lymphocytic leukemia, chronic hyponatremia, and several other comorbidities who presented to the emergency department earlier today via EMS for evaluation of right hip pain after a fall. She had been vacuuming this morning and unfortunately tripped over the cord causing her to fall onto her right side, striking her right elbow and right hip on the floor. She was eventually able to crawl to a nearby chair and pull herself up however when she attempted to stand she was unable to bear weight on the right leg due to pain in the hip. X-ray in the emergency department showed acute right subcapital femoral neck fracture and she is being admitted in this setting. She denies head trauma and loss of consciousness in the fall and she sustained no other injuries aside from hip fracture and
[2021-04-09 13:56] LABS: Lactate Dehydrogenase 501 U/L (313-618)
[2021-04-09 14:04] LABS: Transferrin 224 mg/dL (206-381)
[2021-04-09 14:06] LABS: NT Pro B Type Natriuretic Pept 1840 pg/mL (5-100)
[2021-04-09 14:09] LABS: Iron 20 ug/dL (37-170)
[2021-04-09 14:19] LABS: Percent Iron Saturation 6 % (20-50)
[2021-04-09 15:10] LABS: Folic Acid 13.7 ng/mL (2.76->20)
[2021-04-10] MEDS: HYDROcodone/acetaminophen (*CRX) 5-325 MG TABLET 1 TAB PO ×2 (02:45→09:20)
[2021-04-10 04:07] LABS: Osmolality, Urine 390 mOsm/kg (50-1200)
[2021-04-10 04:43] LABS: Basophils Percent Auto 0.2 % (0.2-1.2); Eosinophils Absolute Auto 0.2 K/mm3 (0-0.3); Hematocrit 24.6 % (37.0-47.0); Hemoglobin 8.4 g/dL (12.0-15.0); Immature Granulocyte Absolute 0.08 K/mm3 (0.00-0.031); Immature Granulocyte Percent A 0.5 % (0-0.5); Lymphocytes Absolute Auto 5.92 K/mm3 (0.9-3.2); Lymphocytes Percent Auto 38.4 % (18.3-44.2); Mean Corpuscular HGB Conc 34.1 g/dl (32-36); Mean Corpuscular Hemoglobin 31.5 pg (26-34); Mean Corpuscular Volume 92.1 fl (80-100); Mean Platelet Volume 8.6 fl (7.4-10.4); Monocytes Absolute Auto 1.5 K/mm3 (0.1-0.6); Monocytes Percent Auto 9.4 % (2.6-8.5); Neutrophils Absolute Auto 7.8 K/mm3 (1.3-6.7); Neutrophils Percent Auto 50.5 % (45.5-73.1); Platelet Count Result 189 k/mm3 (150-375); Red Blood Count 2.67 M/mm3 (4.2-5.4); Red Cell Distribution Width 12.4 % (11.5-14.5); White Blood Count 15.4 K/mm3 (4.5-10.0)
[2021-04-10 05:00] LABS: Alanine Aminotransferase 14 U/L (4-35); Albumin Level 2.6 g/dL (3.5-5.1); Alkaline Phosphatase 61 U/L (38-126); Anion Gap 2 mmol/L (8-16); Aspartate Amino Transferase 29 U/L (14-36); Bilirubin,Total 0.3 mg/dL (0.2-1.3); Blood Urea Nitrogen 12 mg/dL (7-17); Calcium 7.9 mg/dL (8.4-10.2); Carbon Dioxide 28 mmol/L (22-30); Chloride 95 mmol/L (98-107); Estimated CRCL calculation 61 ml/min; Estimated Glomerular Filt Rate > 60; Glucose 113 mg/dL (65-110); Magnesium 1.9 mg/dL (1.6-2.3); Potassium 4.2 mmol/L (3.4-5.0); Sodium 125 mmol/L (137-145)
--- NOTE | 2021-04-10 07:50 | PM.PNCARD ---
Progress Note: A&P Assessment and Plan (1) Preop cardiovascular exam: Code(s): Z01.810 - Encounter for preprocedural cardiovascular examination Status: Acute Assessment and Plan: Asymptomatic from cardiac standpoint. Risk profile: age, PAD, severe , hypertension, dyslipidemia. Functional status: >4 METs. Surgical risk: Moderate orthopedic surgery. Overall risk stratification: She is at moderate cardiac risk for noncardiac surgery. Her last nuclear stress test was July 2018 that was normal. She needs to weigh risks/benefits of surgery with orthopedic surgeon. Post op day 2. Doing well. Post op EKG is unremarkable. Correct electrolytes with sodium 125. Spironolactone on hold. Receiving IVF to treat dehydration and replete sodium level. Decrease free water intake and more fluids with electrolytes. Will sign off. Please call with any questions. (2) Hypertension: Code(s): I10 - Essential (primary) hypertension Status: Acute Assessment and Plan: Stable. (3) Dyslipidemia: Code(s): E78.5 - Hyperlipidemia, unspecified Status: Acute Assessment and Plan: On Pravastatin. (4) PAD (peripheral artery disease): Code(s): I73.9 - Peripheral vascular disease, unspecified Status: Acute Assessment and Plan: Stable with mod-severe PAD. (5) Left bundle branch block: Code(s): I44.7 - Left bundle-branch block, unspecified Status: Acute Subjective Date/time seen: 04/10/21 07:50 Denies chest pain, sob. Exam Const: General: cooperative, healthy appearing and comfortable Resp: Auscultation: clear to auscultation bilaterally, no crackles, no rales, no rhonchi and no wheezes Cardio: Jugular venous distension: no JVD Rate: regular rate Rhythm: regular rhythm Heart sounds: Murmur heart sound present (V/ systolic murmur RICS) GI: GI Palp: No abdominal tenderness and Yes Soft to palpation Neuro: General: oriented to person, oriented to place and oriented to time Extrem: Right lower extremity: no edema Left lower extremity: no edema Objective Data Vital Signs Vital Signs: Vital Signs - 24 hr 04/09/21 08:00 04/09/21 18:00 04/09/21 20:00 Temperature 98.8 F Pulse Rate 96 94 89 Respiratory Rate 16 16 16 Blood Pressure 164/58 H Pulse Oximetry 96 97 96 04/09/21 21:19 04/09/21 21:20 Temperature 98.5 F Pulse Rate 89 Respiratory Rate 16 Blood Pressure 134/47 L Pulse Oximetry 87 L 96 Intake/Output Intake/Output: Intake & Output 04/07/21 04/08/21 04/09/21 04/10/21 23:59 23:59 23:59 23:59 Intake Total 2340 2750 450 300 Output Total 1200 485 650 300 Balance 1140 2265 -200 0 Meds/Results Medications: Active Medications Generic Name Dose Route Start Last Admin Trade Name Freq PRN Reason Stop Dose Admin Hydrocodone Bitart/Acetaminophen 1 tab 04/07/21 12:22 04/10/21 02:45 Hydrocodone/Acetaminophen (*Crx) 5-325 Mg Tablet PO 1 tab Q6H PRN Administration Pain Rated 4-6 Amlodipine Besylate 10 mg 04/08/21 09:00 04/09/21 09:19 Amlodipine Besylate 5 Mg Tablet PO 10 mg DAILY [facility] Administration Aspirin 81 mg 04/10/21 09:00 Aspirin 81 Mg Enteric Tablet PO DAILY [facility] Ferrous Sulfate 324 mg 04/10/21 08:00 Ferrous Sulfate 324 Mg Tablet PO BIDWM MILAN Furosemide 20 mg 04/10/21 09:00 Furosemide 20 Mg Tablet PO QAM [facility] Hydromorphone HCl 1 mg 04/07/21 01:12 04/08/21 09:24 Hydromorphone Hcl Inj (*Crx) 1 Mg/Ml Syr IV PUSH 1 mg Q3H PRN Administration Pain Rated 7-10 Irbesartan 300 mg 04/08/21 09:00 04/09/21 09:17 Irbesartan 150 Mg Tablet PO 300 mg DAILY [facility] Administration Naloxone HCl 0.4 mg 04/07/21 01:13 Naloxone Hcl 0.4 Mg/Ml Vial IV PUSH Q5MIN PRN Sedation Non-Formulary Medication 1 cap 04/08/21 09:00 Co L20-Bktd Oil-[place] 3-E PO 05/08/21 08:59 DAILY [facility] Non-Formulary Medication 50 mcg 04/08/21 09:00 [place]
[2021-04-10 09:15] VITALS: BP 124/54; PULSE 95; RESP 16; TEMP 36.6; O2SAT 99
[2021-04-10] MEDS: IRBESARTAN 150 MG TABLET 300 MG PO (09:20)
[2021-04-10] MEDS: PRAVASTATIN SODIUM 20 MG TABLET PO (09:20)
[2021-04-10] MEDS: SPIRONOLACTONE 25 MG TABLET PO (09:21)
[2021-04-10] MEDS: FERROUS SULFATE 324 MG TABLET PO ×2 (09:21→18:34)
[2021-04-10] MEDS: FUROSEMIDE 20 MG TABLET PO (09:21)
[2021-04-10] MEDS: ASPIRIN 81 MG ENTERIC TABLET PO (09:23)
[2021-04-10] MEDS: amLODIPine BESYLATE 5 MG TABLET 10 MG PO (09:24)
[2021-04-10] MEDS: CHOLECALCIFEROL 1,000 UNITS TABLET 5000 UNITS PO (09:30)
--- NOTE | 2021-04-10 10:00 | P.PNIM_ITS ---
Progress Note: A&P Assessment and Plan (1) Subcapital fracture of right femur: Code(s): S72.011A - Unspecified intracapsular fracture of right femur, initial encounter for closed fracture Status: Acute Assessment and Plan: * POD 2 * Hip xray found acute subcapital right femoral neck fracture * Dr. Walls has been consulted * Surgical intervention scheduled yesterday * Heart healthy diet * Analgesics available as needed * Cefazolin x 3 bags * DVT per Ortho * Continue bedrest * PT/OT (2) Dehydration: Code(s): E86.0 - Dehydration Status: Acute Assessment and Plan: * BUN/Cr 12/0.60 * Na is low at 124 * Trend urine output * Encourage PO intake (3) Hyperkalemia: Code(s): E87.5 - Hyperkalemia Status: Acute Assessment and Plan: * K is 5.6 on arrival, currently 4.2 * IV hydration * Spironolactone is on hold * Trend labs (4) Chronic hyponatremia: Code(s): E87.1 - Hypo-osmolality and hyponatremia Status: Acute Assessment and Plan: * Baseline sodium is in the upper 120s to low 130s * Current sodium is 126 * Continue to trend sodium levels * Urine Creatinine is 122.6 * Urine osmolality 390, Serum osmolality is 259 * urine sodium 24 * She does seem to be hypervolemic, one dose of lasix given * Salt tabs added (5) Aortic stenosis: Code(s): I35.0 - Nonrheumatic aortic (valve) stenosis Status: Acute Assessment and Plan: * Followed by Dr. Urena, who has been consulted to help stratify her cardiac risk preoperatively. * Reapeat ekg SR (6) Diastolic dysfunction: Code(s): I51.89 - Other ill-defined heart diseases Status: Acute Assessment and Plan: * Echo from Oct shows diastolic dysfunction grade one with EF of 65-70% * Seems compensated * Avoid over-hydration * BNP 1840 * Daily weights * Trend output * CHF could be playing a role, but unlikely in exacerbation due to no reports of shortness of breath (7) Hypertension: Code(s): I10 - Essential (primary) hypertension Status: Acute Assessment and Plan: * 151/52 currently * furosemide and spironolactone restarted * Trend blood pressure * adjust therapy as indicated (8) Peripheral arterial disease: Code(s): I73.9 - Peripheral vascular disease, unspecified Status: Acute Assessment and Plan: * No acute issues. (9) Chronic lymphocytic leukemia: Code(s): C91.10 - Chronic lymphocytic leukemia of B-cell type not having achieved remission Status: Acute Assessment and Plan: * White blood cell count is 24.3 * likely a stress response from fall and fracture. Monitor. (10) Anemia: Code(s): D64.9 - Anemia, unspecified Status: Acute Assessment and Plan: * H/H 8.4/24.6 * Anemia labs TSH 7.830, Folate 13.7, B12 562, LDH 501, Iron 20, % sat 6, TIBC 321, Transferrin 224, Ferritin 55.50 * Iron supplement added * Supplemental as needed * Might be from blood loss from the surgical procedure * MCV is a little low at 89.3 Time Spent With Patient Time with patient: Greater than 35 minutes Subjective Date/time seen: 04/10/21 1000 Interval history: Interval history: Date/Time: 04/06/21 16:40 Narrative: This is a pleasant 86-year-old female with history of aortic stenosis, hypertension, dyslipide
--- NOTE | 2021-04-10 10:00 | PM.IMPN ---
Progress Note: A&P Assessment and Plan (1) Subcapital fracture of right femur: Code(s): S72.011A - Unspecified intracapsular fracture of right femur, initial encounter for closed fracture Status: Acute Assessment and Plan: POD 2 Hip xray found acute subcapital right femoral neck fracture Dr. Walls has been consulted Surgical intervention scheduled yesterday Heart healthy diet Analgesics available as needed Cefazolin x 3 bags DVT per Ortho Continue bedrest PT/OT (2) Dehydration: Code(s): E86.0 - Dehydration Status: Acute Assessment and Plan: BUN/Cr 12/0.60 Na is low at 124 Trend urine output Encourage PO intake (3) Hyperkalemia: Code(s): E87.5 - Hyperkalemia Status: Acute Assessment and Plan: K is 5.6 on arrival, currently 4.2 IV hydration Spironolactone is on hold Trend labs (4) Chronic hyponatremia: Code(s): E87.1 - Hypo-osmolality and hyponatremia Status: Acute Assessment and Plan: Baseline sodium is in the upper 120s to low 130s Current sodium is 126 Continue to trend sodium levels Urine Creatinine is 122.6 Urine osmolality 390, Serum osmolality is 259 urine sodium 24 She does seem to be hypervolemic, one dose of lasix given Salt tabs added (5) Aortic stenosis: Code(s): I35.0 - Nonrheumatic aortic (valve) stenosis Status: Acute Assessment and Plan: Followed by Dr. Urena, who has been consulted to help stratify her cardiac risk preoperatively. Reapeat ekg SR (6) Diastolic dysfunction: Code(s): I51.89 - Other ill-defined heart diseases Status: Acute Assessment and Plan: Echo from Oct shows diastolic dysfunction grade one with EF of 65-70% Seems compensated Avoid over-hydration BNP 1840 Daily weights Trend output CHF could be playing a role, but unlikely in exacerbation due to no reports of shortness of breath (7) Hypertension: Code(s): I10 - Essential (primary) hypertension Status: Acute Assessment and Plan: 151/52 currently furosemide and spironolactone restarted Trend blood pressure adjust therapy as indicated (8) Peripheral arterial disease: Code(s): I73.9 - Peripheral vascular disease, unspecified Status: Acute Assessment and Plan: No acute issues. (9) Chronic lymphocytic leukemia: Code(s): C91.10 - Chronic lymphocytic leukemia of B-cell type not having achieved remission Status: Acute Assessment and Plan: White blood cell count is 24.3 likely a stress response from fall and fracture. Monitor. (10) Anemia: Code(s): D64.9 - Anemia, unspecified Status: Acute Assessment and Plan: H/H 8.4/24.6 Anemia labs TSH 7.830, Folate 13.7, B12 562, LDH 501, Iron 20, % sat 6, TIBC 321, Transferrin 224, Ferritin 55.50 Iron supplement added Supplemental as needed Might be from blood loss from the surgical procedure MCV is a little low at 89.3 Time Spent With Patient Time with patient: Greater than 35 minutes Subjective Date/time seen: 04/10/21 1000 Interval history: Interval history: Date/Time: 04/06/21 16:40 Narrative: This is a pleasant 86-year-old female with history of aortic stenosis, hypertension, dyslipidemia, chronic left bundle branch block, peripheral arterial disease, chronic lymphocytic leukemia, chronic hyponatremia, and several other comorbidities who presented to the emergency department earlier today via EMS for evaluation of right hip pain after a fall. She had been vacuuming this morning and unfortunately tripped over the cord causing her to fall onto her right side, striking her right elbow and right hip on the floor. She was eventually able to crawl to a nearby chair and pull herself up however when she attempted to stand she was unable to bear weight on the right leg due to pain in the hip. X-ray in
[2021-04-10] MEDS: SODIUM CHLORIDE 1 GM TABLET PO (11:49)
[2021-04-10 13:20] VITALS: BP 151/52; PULSE 89; RESP 18; TEMP 36.8; O2SAT 100
--- NOTE | 2021-04-10 13:43 | PC.NURSE ---
RN called Dr. Walls and patient is good to discharge from his standpoint if the hospitalist says it's all right. Dr. Walls wants patient to follow-up with him 7-10 days after discharge from hospital (here).
[2021-04-10 14:46] LABS: Anion Gap 8 mmol/L (8-16); Blood Urea Nitrogen 14 mg/dL (7-17); Calcium 8.1 mg/dL (8.4-10.2); Carbon Dioxide 26 mmol/L (22-30); Chloride 92 mmol/L (98-107); Estimated CRCL calculation 53 ml/min; Estimated Glomerular Filt Rate > 60; Glucose 149 mg/dL (65-110); Sodium 126 mmol/L (137-145)
--- NOTE | 2021-04-10 16:08 | PC.NURSE ---
RN let [id number] and told her patient has to stay another night since sodium is still low. Priyanka stated, She doesn't eat any salt and it has been low for the past year.
--- NOTE | 2021-04-10 16:59 | PC.NURSE ---
This patient, Martha Martinez, was transferred to [[id number]] on 04/10/21 at 1659. Personal belongings sent with patient. Report given to [JUAREZ Vazquez. ]. Appropriate documentation sent with patient.
[2021-04-10 17:35] VITALS: BP 140/57; PULSE 88; RESP 16; TEMP 37.3; O2SAT 95
[2021-04-10] MEDS: FUROSEMIDE INJ 40 MG/4 ML VIAL IV PUSH (18:34)
[2021-04-10] MEDS: HYDROmorphone HCL INJ (*CRX) 1 MG/ML SYR IV PUSH (20:14)
[2021-04-10 21:51] VITALS: BP 130/55; PULSE 82; RESP 16; TEMP 37.3; O2SAT 96
[2021-04-11 05:53] VITALS: BP 130/52; PULSE 93; RESP 20; TEMP 36; O2SAT 95
[2021-04-11 06:01] LABS: Basophils Absolute Auto 0.1 K/mm3 (0.0-0.1); Basophils Percent Auto 0.6 % (0.2-1.2); Eosinophils Absolute Auto 0.3 K/mm3 (0-0.3); Eosinophils Percent Auto 1.5 % (0-4.4); Hematocrit 26.4 % (37.0-47.0); Hemoglobin 9.1 g/dL (12.0-15.0); Immature Granulocyte Absolute 0.08 K/mm3 (0.00-0.031); Immature Granulocyte Percent A 0.4 % (0-0.5); Lymphocytes Absolute Auto 8.16 K/mm3 (0.9-3.2); Lymphocytes Percent Auto 45.7 % (18.3-44.2); Mean Corpuscular HGB Conc 34.5 g/dl (32-36); Mean Corpuscular Volume 89.8 fl (80-100); Mean Platelet Volume 8.6 fl (7.4-10.4); Monocytes Absolute Auto 1.5 K/mm3 (0.1-0.6); Monocytes Percent Auto 8.6 % (2.6-8.5); Neutrophils Absolute Auto 7.7 K/mm3 (1.3-6.7); Neutrophils Percent Auto 43.2 % (45.5-73.1); Platelet Count Result 260 k/mm3 (150-375); Red Blood Count 2.94 M/mm3 (4.2-5.4); Red Cell Distribution Width 12.3 % (11.5-14.5); White Blood Count 17.9 K/mm3 (4.5-10.0)
[2021-04-11 06:15] LABS: Alanine Aminotransferase 16 U/L (4-35); Alkaline Phosphatase 68 U/L (38-126); Anion Gap 6 mmol/L (8-16); Aspartate Amino Transferase 34 U/L (14-36); Bilirubin,Total 0.4 mg/dL (0.2-1.3); Blood Urea Nitrogen 11 mg/dL (7-17); Calcium 8.2 mg/dL (8.4-10.2); Carbon Dioxide 29 mmol/L (22-30); Chloride 92 mmol/L (98-107); Estimated CRCL calculation 61 ml/min; Estimated Glomerular Filt Rate > 60; Glucose 121 mg/dL (65-110); Magnesium 1.9 mg/dL (1.6-2.3); Potassium 4.1 mmol/L (3.4-5.0); Sodium 127 mmol/L (137-145)
[2021-04-11] MEDS: FERROUS SULFATE 324 MG TABLET PO (08:05)
[2021-04-11] MEDS: SPIRONOLACTONE 25 MG TABLET PO (08:05)
[2021-04-11] MEDS: FUROSEMIDE 20 MG TABLET PO (08:05)
[2021-04-11] MEDS: PRAVASTATIN SODIUM 20 MG TABLET PO (08:05)
[2021-04-11] MEDS: IRBESARTAN 150 MG TABLET 300 MG PO (08:05)
[2021-04-11] MEDS: SODIUM CHLORIDE 1 GM TABLET PO (08:05)
[2021-04-11] MEDS: HYDROcodone/acetaminophen (*CRX) 5-325 MG TABLET 1 TAB PO (08:07)
[2021-04-11] MEDS: ASPIRIN 81 MG ENTERIC TABLET PO (08:08)
--- NOTE | 2021-04-11 11:00 | PM.DS ---
DS: Admitting Diagnosis Discharge Date Date of Discharge 04/11/21 1100 Admitting Diagnosis Right femur fracture DS: Discharge Diagnosis Discharge Diagnosis (1) Subcapital fracture of right femur: Code(s): S72.011A - Unspecified intracapsular fracture of right femur, initial encounter for closed fracture Status: Acute Assessment and Plan: POD 3 Hip xray found acute subcapital right femoral neck fracture Dr. Walls has been consulted Surgical intervention scheduled yesterday Heart healthy diet Analgesics available as needed Cefazolin x 3 bags DVT per Ortho Continue bedrest PT/OT (2) Dehydration: Code(s): E86.0 - Dehydration Status: Acute Assessment and Plan: BUN/Cr 11/0.60 Na is low at 127 Trend urine output Encourage PO intake (3) Hyperkalemia: Code(s): E87.5 - Hyperkalemia Status: Acute Assessment and Plan: K is 5.6 on arrival, currently 4.1 IV hydration Spironolactone is on hold Trend labs (4) Chronic hyponatremia: Code(s): E87.1 - Hypo-osmolality and hyponatremia Status: Acute Assessment and Plan: Baseline sodium is in the upper 120s to low 130s Current sodium is 127 Continue to trend sodium levels Urine Creatinine is 122.6 Urine and serum osmolality is still pending urine sodium 24 Will get a FENa score once all labs are back (5) Aortic stenosis: Code(s): I35.0 - Nonrheumatic aortic (valve) stenosis Status: Acute Assessment and Plan: Followed by Dr. Urena, who has been consulted to help stratify her cardiac risk preoperatively. Reapeat ekg SR (6) Diastolic dysfunction: Code(s): I51.89 - Other ill-defined heart diseases Status: Acute Assessment and Plan: Echo from Oct shows diastolic dysfunction grade one with EF of 65-70% Seems compensated Avoid over-hydration Check a BNP Daily weights Trend output (7) Hypertension: Code(s): I10 - Essential (primary) hypertension Status: Acute Assessment and Plan: 130/52 currently furosemide and spironolactone on hold Trend blood pressure adjust therapy as indicated (8) Peripheral arterial disease: Code(s): I73.9 - Peripheral vascular disease, unspecified Status: Acute Assessment and Plan: No acute issues. (9) Chronic lymphocytic leukemia: Code(s): C91.10 - Chronic lymphocytic leukemia of B-cell type not having achieved remission Status: Acute Assessment and Plan: White blood cell count is 17.9 likely a stress response from fall and fracture. Monitor. (10) Anemia: Code(s): D64.9 - Anemia, unspecified Status: Acute Assessment and Plan: H/H 9./.4 Anemia labs pending Supplemental as needed Might be from blood loss from the surgical procedure MCV is a little low at 89.3 DS: Summary Hospital Course Hospital Course: Patient is an 86 year old female with a past medical history of CLL, HTN, aortic stenosis, PAD who presented to the ED after a fall. X-ray showed that the patient had a acute right subcapital femoral neck fracture. It was also noted that the patient was severely hyponatremic with a sodium of 119. Patient was given IV fluids and sodium was trend throughout the visit. Urine sodium was collected along with osmolality which showed basically the patient was fluid overloaded and was excreting too much sodium. Patient was given Lasix and sodium tabs for further correction. Sodium is trending up and is 127. Orthopedics was consulted for the femoral fracture. In took the patient to the OR on 04/08/2021 for a repair. Orthopedics did post up care. It was also noted the patient was displaying leukocytosis with an elevated white count. Patient does have CLL which can make WBCs elevated. Post surgical procedure patient's H&H had dropped to 9.7 and 28.3. Anemia labs we
--- NOTE | 2021-04-11 11:00 | P.DS_ITS ---
DS: Admitting Diagnosis Discharge Date Date of Discharge 04/11/21 1100 Admitting Diagnosis Right femur fracture DS: Discharge Diagnosis Discharge Diagnosis (1) Subcapital fracture of right femur: Code(s): S72.011A - Unspecified intracapsular fracture of right femur, initial encounter for closed fracture Status: Acute Assessment and Plan: * POD 3 * Hip xray found acute subcapital right femoral neck fracture * Dr. Walls has been consulted * Surgical intervention scheduled yesterday * Heart healthy diet * Analgesics available as needed * Cefazolin x 3 bags * DVT per Ortho * Continue bedrest * PT/OT (2) Dehydration: Code(s): E86.0 - Dehydration Status: Acute Assessment and Plan: * BUN/Cr 11/0.60 * Na is low at 127 * Trend urine output * Encourage PO intake (3) Hyperkalemia: Code(s): E87.5 - Hyperkalemia Status: Acute Assessment and Plan: * K is 5.6 on arrival, currently 4.1 * IV hydration * Spironolactone is on hold * Trend labs (4) Chronic hyponatremia: Code(s): E87.1 - Hypo-osmolality and hyponatremia Status: Acute Assessment and Plan: * Baseline sodium is in the upper 120s to low 130s * Current sodium is 127 * Continue to trend sodium levels * Urine Creatinine is 122.6 * Urine and serum osmolality is still pending * urine sodium 24 * Will get a FENa score once all labs are back (5) Aortic stenosis: Code(s): I35.0 - Nonrheumatic aortic (valve) stenosis Status: Acute Assessment and Plan: * Followed by Dr. Urena, who has been consulted to help stratify her cardiac risk preoperatively. * Reapeat ekg SR (6) Diastolic dysfunction: Code(s): I51.89 - Other ill-defined heart diseases Status: Acute Assessment and Plan: * Echo from Oct shows diastolic dysfunction grade one with EF of 65-70% * Seems compensated * Avoid over-hydration * Check a BNP * Daily weights * Trend output (7) Hypertension: Code(s): I10 - Essential (primary) hypertension Status: Acute Assessment and Plan: * 130/52 currently * furosemide and spironolactone on hold * Trend blood pressure * adjust therapy as indicated (8) Peripheral arterial disease: Code(s): I73.9 - Peripheral vascular disease, unspecified Status: Acute Assessment and Plan: * No acute issues. (9) Chronic lymphocytic leukemia: Code(s): C91.10 - Chronic lymphocytic leukemia of B-cell type not having achieved remission Status: Acute Assessment and Plan: * White blood cell count is 17.9 * likely a stress response from fall and fracture. Monitor. (10) Anemia: Code(s): D64.9 - Anemia, unspecified Status: Acute Assessment and Plan: * H/H 9.1/26.4 * Anemia labs pending * Supplemental as needed * Might be from blood loss from the surgical procedure * MCV is a little low at 89.3 DS: Summary Hospital Course Hospital Course: Patient is an 86 year old female with a past medical history of CLL, HTN, aortic stenosis, PAD who presented to the ED after a fall. X-ray show ed that the patient had a acute right subcapital femoral neck fracture. It was also noted that the patient was severely hyponatremic with a sodium of 119. Patient was given IV fluids and sodium was trend throughout the visit. U
[2021-04-11] MEDS: amLODIPine BESYLATE 5 MG TABLET 10 MG PO (11:39)
[2021-04-11] MEDS: SODIUM CHLORIDE 1 GM TABLET 2 GM PO (11:39)
[2021-04-11] MEDS: CHOLECALCIFEROL 1,000 UNITS TABLET 5000 UNITS PO (12:42)
[2021-04-11 12:57] LABS: EDCOVIDSCREEN Negative (Negative)
== END 2021-04-11 16:37 | DRG 522 ==
LOC: ANHED 16:14 → ANH3MED 04-07 01:59 → ANHSUROVER 04-10 14:19 → ANH3MED 04-11 12:29 → ANH3MEDSUR 04-13 07:24
PROVIDERS: Nurse Practitioner; Physician Assistant; Specialist; Admitting Provider Family Medicine; Emergency Provider Emergency Medicine; PCP Emergency Medicine; Visit Provider Family Medicine
PROC: 0SRR0JZ Replacement of Right Hip Joint, Femoral Surface with Synthetic Substitute, Open Approach (ICD-10-PCS; CPT 27125; principal; 2021-04-08 10:30)
DX: S72.011A Unspecified intracapsular fracture of right femur, initial encounter for closed fracture (principal); E87.1 Hypo-osmolality and hyponatremia; C91.10 Chronic lymphocytic leukemia of B-cell type not having achieved remission; D62 Acute posthemorrhagic anemia; Z68.41 Body mass index [BMI] 40.0-44.9, adult; W18.09XA Striking against other object with subsequent fall, initial encounter; Z20.822 Contact with and (suspected) exposure to COVID-19; E86.0 Dehydration; E87.5 Hyperkalemia; I35.0 Nonrheumatic aortic (valve) stenosis; I51.89 Other ill-defined heart diseases; I10 Essential (primary) hypertension; I73.9 Peripheral vascular disease, unspecified; D72.829 Elevated white blood cell count, unspecified; D50.9 Iron deficiency anemia, unspecified; I44.7 Left bundle-branch block, unspecified; E66.01 Morbid (severe) obesity due to excess calories
CPT/HCPCS: 36415; 51702; 71045; 73502; 80048; 80053; 81001; 82570; 82607; 82728; 82746; 83540; 83550; 83615; 83735; 83880; 83930; 83935; 84300; 84439; 84443; 84466; 84480; 85025; 85610; 85730; 86850; 86900; 86901; 87426; 93005; 96374; 97110; 97116; 97161; 97165; 97530; 97535; 99285; A9270; C1776; C9803; J0131; J0171; J0330; J0690; J1100; J1170; J1630; J1885; J1940; J2270; J2370; J2405; J2704; J2795; J3010; J7030; J7040; J7120

== ENCOUNTER 2021-04-22 13:01 | Outpatient (NON) | payer MEDICARE, SELFPAY ==
[2021-04-22 13:51] LABS: Alanine Aminotransferase 15 U/L (4-35); Albumin Level 3.2 g/dL (3.5-5.1); Alkaline Phosphatase 76 U/L (38-126); Anion Gap 7 mmol/L (8-16); Aspartate Amino Transferase 27 U/L (14-36); Bilirubin,Total 0.3 mg/dL (0.2-1.3); Blood Urea Nitrogen 17 mg/dL (7-17); Calcium 8.4 mg/dL (8.4-10.2); Carbon Dioxide 28 mmol/L (22-30); Chloride 96 mmol/L (98-107); Estimated Glomerular Filt Rate > 60; Glucose 121 mg/dL (65-110); Potassium 4.3 mmol/L (3.4-5.0); Sodium 131 mmol/L (137-145)
== END 2021-04-22 13:02 | disposition home or self-care (01) ==
LOC: HOME HLTH 13:03
PROVIDERS: PCP Emergency Medicine; Visit Provider Emergency Medicine
DX: S72.011D Unspecified intracapsular fracture of right femur, subsequent encounter for closed fracture with routine healing (principal); I44.7 Left bundle-branch block, unspecified; I10 Essential (primary) hypertension; I35.0 Nonrheumatic aortic (valve) stenosis; X58.XXXD Exposure to other specified factors, subsequent encounter
CPT/HCPCS: 80053

== ENCOUNTER 2021-10-15 12:35 | Inpatient (IN) | payer MEDICARE, MEDICAID, SELFPAY ==
--- NOTE | ~2021-10-15 | US_ITS ---
EXAMINATION: US arterial ankle brachial ind DATE: 10/15/2021 16:59 INDICATION: Peripheral arterial disease. Left great toe gangrene. TECHNIQUE: Segmental pressures and plethysmographic and Doppler waveforms of the brachial and lower e xtremity arteries were obtained. COMPARISON: Arterial Doppler and segmental pressures 07/12/2018 FINDINGS: Right and left brachial artery pressures of 169 mm Hg and 162 mm Hg, respectively, are concordant (no rmal difference <= 30 mmHg). The right ankle-brachial index (LANIE) could not be measured due to inability to cuff occlude the arter ies (normal >= 0.9-1.0). The right great toe-brachial index (TBI) is 0.27 (normal >= 0.65). Arterial Doppler waveforms are biphasic at the ankle. The left LANIE could not be measured due to inability to cuff occlude the arteries. The left TBI is 0.2 1. Arterial Doppler waveforms are biphasic at the ankle. IMPRESSION: 1. Nondiagnostic ABIs and decreased TBIs, consistent with arterial occlusive disease. Reviewed, dictated and finalized at location A. IMPRESSION: 1. Nondiagnostic ABIs and decreased TBIs, consistent with arterial occlusive di sease.
--- NOTE | ~2021-10-15 | XR_ITS ---
EXAMINATION: XR foot LT min 3V DATE: 10/15/2021 14:49 INDICATION: Increasing at the left great toe TECHNIQUE: Dorsoplantar, two oblique and lateral views of the left foot were obtained. COMPARISON: None. FINDINGS: Mild hallux valgus. No fracture. Polyarticular osteoarthritis, mild to moderate severity at the inter phalangeal joints, mild at the first metatarsophalangeal and minimal at several joints in the midfoot . No cortical erosions or periosteal reaction to suggest osteomyelitis. Soft tissues are unremarkable with no soft tissue gas or radiopaque foreign bodies. IMPRESSION: 1. 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 No acute osseous abnormality or les ions suspicious for osteomyelitis. Reviewed, dictated and finalized at location A. IMPRESSION: 1. 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 No acute osse ous abnormality or lesions suspicious for osteomyelitis.
[2021-10-15 13:27] VITALS: BP 148/67; PULSE 84; RESP 18; TEMP 36.8; O2SAT 98
--- NOTE | 2021-10-15 14:36 | ED.GENADULT ---
HPI - General Adult General Chief complaint: Wound/Laceration Stated complaint: wound to great toe Time Seen by Provider: 10/15/21 14:21 Source: patient Mode of arrival: ambulatory Limitations: no limitations History of Present Illness HPI narrative: 86 years old white female lives at home, referred to our emergency room by her medical or surgical instrument maker for left big toe black discoloration. Patient reports pain and discoloration of the left big toe for the last 8 weeks, was seen by her medical or surgical instrument maker 3 weeks ago, today with the second visit then referred to us to rule out infection. History of hypertension, hyperlipidemia, takes 1 baby aspirin once a day, she denies any smoking, drinking or using drugs. She denies fever, chills, nausea, vomiting, trauma or history of diabetes. Related Data Home Medications Medication Instructions Recorded Confirmed amlodipine 5 mg tablet 10 mg PO DAILY 05/30/19 06/04/21 irbesartan 150 mg tablet 300 mg PO DAILY 05/30/19 06/04/21 spironolactone 25 mg tablet 25 mg PO DAILY 10/29/20 06/04/21 ascorbate calcium (vitamin C) 500 250 mg PO DAILY 04/15/21 06/04/21 mg tablet garlic 1,000 mg capsule 1,000 mg PO DAILY 04/15/21 06/04/21 omega 9-qyx-lwj-fish oil 1,200 mg 1 cap PO DAILY 04/15/21 06/04/21 (144 mg-216 mg) capsule (Fish Oil) turmeric 500 mg DAILY 04/15/21 06/04/21 cholecalciferol (vitamin D3) 25 25 mcg PO DAILY 04/17/21 06/04/21 mcg (1,000 unit) capsule coenzyme Q10 300 mg capsule 300 mg PO DAILY 04/17/21 06/04/21 glucosamine QSg-B4-Unikqhryx 1 tablet PO DAILY 04/17/21 06/04/21 cyrus 1,500 mg-400 unit-100 mg tablet (Glucosamine Daily Complex) zinc gluconate 50 mg tablet 50 mg PO DAILY 04/17/21 06/04/21 Allergies Allergy/AdvReac Type Severity Reaction Status Date / Time bacitracin Allergy Blister Verified 10/15/21 13:31 [From Neosporin ([id number])] neomycin Allergy Blister Verified 10/15/21 13:31 [From Neosporin ([id number])] polymyxin B Allergy Blister Verified 10/15/21 13:31 [From Neosporin ([id number])] Review of Systems Review of Systems: All systems reviewed & are unremarkable except as noted in HPI and below PMFSH Past Medical History Medical History Aortic stenosis Severe aortic stenosis with a valve area of 0.9 cm2 on echocardiogram in October 2020. Chronic hyponatremia Chronic lymphocytic leukemia Diastolic dysfunction 11/05/20 Echo: EF 65-70%, mild LVH, grade I diastolic dysfunction (E/e' 16), mild LAE, severe (CHANDLER 0.9 cm2), mild AI/TR, RVSP 49 mmHg. Dyslipidemia Hypertension Left bundle branch block Lexiscan Myoview negative for ischemia in July 2018. Peripheral arterial disease Arterial Duplex LE on 07/12/2018: Left 0.73 and right LANIE 0.37. Right brachial 220 and left 261 mmHg. Surgical History Surgical History No history of previous surgery Family History Family History Sibling Primary cancer of brain Mother Hypertension Social History Social History Social History: The patient lives in her own home in [place]. She is a former smoker. She drinks alcohol very rarely and in moderation. No illicit substance use. She designates her children as her surrogate decision makers. Code status: Full code. Smoking status: Never smoker Alcohol intake: never Substance use: never Spiritual care concerns: No Exam Narrative: General appearance: Well-developed, well-nourished Skin: Normal color Head: Normocephalic, nontraumatic Eyes: Clear conjunctiva ENT: Oropharynx normal, ears normal, nose normal Neck: Supple, nontender Chest and respiratory: Airway patent, no respiratory distress, no accessory muscle use Heart: Regular rate/rhythm Abdomen: Soft, nontender, no organomegaly, quiet bowel sounds Vascular: Normal periph
[2021-10-15 15:22] LABS: Basophils Percent Auto 0.3 % (0.2-1.2); Eosinophils Absolute Auto 0.2 K/mm3 (0-0.3); Eosinophils Percent Auto 1.4 % (0-4.4); Hematocrit 35.8 % (37.0-47.0); Hemoglobin 12.3 g/dL (12.0-15.0); Immature Granulocyte Absolute 0.06 K/mm3 (0.00-0.031); Immature Granulocyte Percent A 0.5 % (0-0.5); Lymphocytes Absolute Auto 3.92 K/mm3 (0.9-3.2); Lymphocytes Percent Auto 32.9 % (18.3-44.2); Mean Corpuscular HGB Conc 34.4 g/dl (32-36); Mean Corpuscular Hemoglobin 30.9 pg (26-34); Mean Corpuscular Volume 89.9 fl (80-100); Mean Platelet Volume 8.4 fl (7.4-10.4); Monocytes Absolute Auto 0.8 K/mm3 (0.1-0.6); Neutrophils Absolute Auto 6.9 K/mm3 (1.3-6.7); Neutrophils Percent Auto 57.9 % (45.5-73.1); Platelet Count Result 283 k/mm3 (150-375); Red Blood Count 3.98 M/mm3 (4.2-5.4); Red Cell Distribution Width 13.2 % (11.5-14.5); White Blood Count 11.9 K/mm3 (4.5-10.0)
[2021-10-15 15:34] LABS: INR 0.9; Prothrombin Time 12.2 Seconds (11.1-14.7)
[2021-10-15 15:35] LABS: Partial Thromboplastin Time 32.5 SECONDS (22.3-36.8)
[2021-10-15 15:46] LABS: Lactic Acid Reflex 1.1 mmol/L (0.7-2.0)
[2021-10-15 15:49] LABS: Alanine Aminotransferase 21 U/L (6-35); Albumin Level 4.5 g/dL (3.5-5.1); Alkaline Phosphatase 84 U/L (38-126); Anion Gap 8 mmol/L (8-16); Aspartate Amino Transferase 27 U/L (14-36); Bilirubin,Total 0.4 mg/dL (0.2-1.3); Blood Urea Nitrogen 17 mg/dL (7-17); CRP 1.8 mg/dL (<1.0); Calcium 8.7 mg/dL (8.4-10.2); Carbon Dioxide 24 mmol/L (22-30); Chloride 92 mmol/L (98-107); Estimated CRCL calculation 27 ml/min; Estimated Glomerular Filt Rate 53; Glucose 115 mg/dL (65-110); Potassium 5.2 mmol/L (3.4-5.0); Sodium 124 mmol/L (137-145)
[2021-10-15 17:14] LABS: SARS-CoV-2 RNA PCR Negative
[2021-10-15 17:57] VITALS: BP 145/58; PULSE 96; RESP 20; TEMP 36.6; O2SAT 98
[2021-10-15 19:35] VITALS: BMI 20.7
--- NOTE | 2021-10-15 19:40 | ADMGEN ---
This patient, Martha Martinez, was admitted to 2 Medical Room 259-. Patient/family oriented to hospital policies and general routines including ID bracelet, bed and alarms, visiting hours, pain management, procedures, bathroom and other care routines, personal items, smoking policy, room service/diet, and visiting hours. Information on how to activate the Rapid Response Team has been discussed. Patient/Family are encouraged to report perceived risks to care and to ask questions if they do not understand what they are told or what they should do.
[2021-10-15 21:14] VITALS: BP 171/67; PULSE 96; RESP 18; TEMP 36.1; O2SAT 97
--- NOTE | 2021-10-15 21:20 | PM.IMHP ---
H&P: HPI History of Present Illness Date/Time: 10/15/21 21:39 Chief Complaint: Toe pain Narrative: Patient is an 86 year old female with a past medical history of hyperlipidemia, PAD, hypertension who presented to the ED from the receiving tank operator office for evaluation of her left great toe. Patient stated that she went to her receiving tank operator office about 3 weeks ago and he had told her to keep it clean and to follow back up in 3 weeks. Patient went back for her 3 week follow-up and she was sent to the ED. patient stated this all started about 8 weeks ago. Her biggest complaint was pain she stated that she is having pain all throughout her body. She currently denies any other issues including chest pain, shortness of breath, nausea, vomiting, diarrhea, constipation, weakness or fatigue. General surgery has been consulted for further evaluation. Foot x-ray denies any osteomyelitis ABIs show arterial occlusive disease. Patient has been started on IV vancomycin will add ceftriaxone. Sodium is low at 124. White count is slightly elevated at 11.9. Review of Systems Review of Systems: All systems reviewed & are unremarkable except as noted in HPI and below PMFSH Past Medical History Medical History Aortic stenosis Severe aortic stenosis with a valve area of 0.9 cm2 on echocardiogram in October 2020. Chronic hyponatremia Chronic lymphocytic leukemia Diastolic dysfunction 11/05/20 Echo: EF 65-70%, mild LVH, grade I diastolic dysfunction (E/e' 16), mild LAE, severe (CHANDLER 0.9 cm2), mild AI/TR, RVSP 49 mmHg. Dyslipidemia Hypertension Left bundle branch block Lexiscan Myoview negative for ischemia in July 2018. Peripheral arterial disease Arterial Duplex LE on 07/12/2018: Left 0.73 and right LANIE 0.37. Right brachial 220 and left 261 mmHg. Status post closed fracture of right femur Surgical History Surgical History No history of previous surgery Family History Family History Sibling Primary cancer of brain Mother Hypertension Social History Social History Social History: The patient lives in her own home in [place]. She is a former smoker. She drinks alcohol very rarely and in moderation. No illicit substance use. She designates her children as her surrogate decision makers. Code status: Full code. Smoking status: Former smoker Smoking end date: 03/28/75 Alcohol intake: never Substance use: never Living arrangements: alone Gender identity (if verbalized by the patient): Female Sexual Orientation (if Verbalized by the Patient): Straight or Heterosexual Spiritual care concerns: No Agree to blood products: Yes Meds Home Medications and Allergies Home Medications Medication Instructions Recorded Confirmed Type amlodipine 5 mg tablet 10 mg PO DAILY 05/30/19 10/15/21 History compr.stocking,knee,long,small #12 ea 05/31/19 10/15/21 Rx ascorbate calcium (vitamin C) 500 250 mg PO DAILY 04/15/21 10/15/21 History mg tablet garlic 1,000 mg capsule 1,000 mg PO DAILY 04/15/21 10/15/21 History omega 2-iuy-zvy-fish oil 1,200 mg 1 cap PO DAILY 04/15/21 10/15/21 History (144 mg-216 mg) capsule (Fish Oil) cholecalciferol (vitamin D3) 25 25 mcg PO DAILY 04/17/21 10/15/21 History mcg (1,000 unit) capsule coenzyme Q10 300 mg capsule 300 mg PO DAILY 04/17/21 10/15/21 History glucosamine WFh-X4-Jaqlsrsjd 1 tablet PO DAILY 04/17/21 10/15/21 History cyrus 1,500 mg-400 unit-100 mg tablet (Glucosamine Daily Complex) zinc gluconate 50 mg tablet 50 mg PO DAILY 04/17/21 10/15/21 History acetaminophen 325 mg tablet (Mapap 650 mg PO QID PRN Mild Pain (1-3) 04/20/21 10/15/21 Rx (acetaminophen)) Or Fever #14 tabs aspirin 325 mg tablet 325 mg PO DAILY@0800 #30 tabs 04/20/21 10/15/21 Rx cyanoco
[2021-10-15] MEDS: MORPHINE SULFATE (*CRX) 2 MG/ML INJ 1 MG IV PUSH (22:02)
[2021-10-15] MEDS: SODIUM CHLORIDE 0.9% IV 1,000 ML 75 ML IV CONT (22:51)
[2021-10-16 05:20] VITALS: BP 139/56; PULSE 81; RESP 20; TEMP 37.2; O2SAT 98
[2021-10-16 05:26] LABS: Basophils Percent Auto 0.5 % (0.2-1.2); Hematocrit 32.7 % (37.0-47.0); Hemoglobin 11.4 g/dL (12.0-15.0); Immature Granulocyte Absolute 0.06 K/mm3 (0.00-0.031); Immature Granulocyte Percent A 0.7 % (0-0.5); Lymphocytes Absolute Auto 3.21 K/mm3 (0.9-3.2); Lymphocytes Percent Auto 36.2 % (18.3-44.2); Mean Corpuscular HGB Conc 34.9 g/dl (32-36); Mean Corpuscular Hemoglobin 30.7 pg (26-34); Mean Corpuscular Volume 88.1 fl (80-100); Mean Platelet Volume 8.2 fl (7.4-10.4); Monocytes Absolute Auto 0.7 K/mm3 (0.1-0.6); Neutrophils Absolute Auto 4.9 K/mm3 (1.3-6.7); Neutrophils Percent Auto 54.6 % (45.5-73.1); Platelet Count Result 217 k/mm3 (150-375); Red Blood Count 3.71 M/mm3 (4.2-5.4); Red Cell Distribution Width 13.2 % (11.5-14.5); White Blood Count 8.9 K/mm3 (4.5-10.0)
[2021-10-16 05:43] LABS: Anion Gap 5 mmol/L (8-16); Blood Urea Nitrogen 10 mg/dL (7-17); Calcium 8.5 mg/dL (8.4-10.2); Carbon Dioxide 22 mmol/L (22-30); Chloride 94 mmol/L (98-107); Estimated CRCL calculation 43 ml/min; Estimated Glomerular Filt Rate > 60; Glucose 112 mg/dL (65-110); Potassium 4.4 mmol/L (3.4-5.0); Sodium 121 mmol/L (137-145)
[2021-10-16 08:01] LABS: Glucose Point of Care 118 mg/dl (65-105)
--- NOTE | 2021-10-16 09:13 | PM.CNGS ---
Assessment and Plan Assessment and plan (1) Gangrenous toe: Code(s): I96 - Gangrene, not elsewhere classified Status: Acute Assessment and Plan: no s/s infection, cont local wound care, will need vascular workup (2) Peripheral arterial disease: Code(s): I73.9 - Peripheral vascular disease, unspecified Status: Acute Assessment and Plan: needs vascular workup, ok to be done as outpt History of Present Illness Consult details Consult date: 10/16/21 Reason for consult: wound care Requesting physician: Priyank Kitchen APN-C Narrative: Pt is a 86 y/o F c multiple med issues including PVD presenting with worsening wound on her L great toe. Pt reports this started about 2 mos ago and has slowly worsened. Pt is being followed by podiatry and was told to come to ED for further evaluation after outpt visit yesterday. Pt reports tip of toe has been getting black and it is somewhat painful. Pt denies any systemic symptoms including f/c, n/v. Review of Systems Constitutional: Constitutional: Denies anorexia, Denies chills, Denies fatigue, Denies fever(s), Denies lethargy, Denies malaise, Denies poor appetite, Denies weakness, Denies weight gain and Denies weight loss Eyes: Eyes: Reports no additional eye complaints ENT: Reports system reviewed and no additional complaints, except as documented Cardiovascular: Cardiovascular: Reports no additional cardiovascular complaints Respiratory: Respiratory: Reports no additional respiratory complaints Gastrointestinal: Gastrointestinal: Reports no additional gastrointestinal complaints Genitourinary: Genitourinary: Reports no additional female genitourinary complaints Musculoskeletal: Musculoskeletal: Reports as per HPI Integumentary/Breasts: Skin/Breast: Reports as per HPI Neurologic: Reports system reviewed and no additional complaints, except as documented Psychiatric: Psychiatric: Reports no additional psychiatric complaints Endocrine: Endocrine: Reports no additional endocrine complaints Hematologic/Lymphatic: Hematologic/Lymphatic: Reports no additional hematologic/lymphatic complaints Allergic/Immunologic: Allergic/Immunologic: Reports no additional allergic/immunologic complaints [facility] Past Medical History Medical History Aortic stenosis Severe aortic stenosis with a valve area of 0.9 cm2 on echocardiogram in October 2020. Chronic hyponatremia Chronic lymphocytic leukemia Diastolic dysfunction 11/05/20 Echo: EF 65-70%, mild LVH, grade I diastolic dysfunction (E/e' 16), mild LAE, severe (CHANDLER 0.9 cm2), mild AI/TR, RVSP 49 mmHg. Dyslipidemia Hypertension Left bundle branch block Lexiscan Myoview negative for ischemia in July 2018. Peripheral arterial disease Arterial Duplex LE on 07/12/2018: Left 0.73 and right LANIE 0.37. Right brachial 220 and left 261 mmHg. Status post closed fracture of right femur Surgical History Surgical History No history of previous surgery Family History Family History Sibling Primary cancer of brain Mother Hypertension Social History Social History Social History: The patient lives in her own home in [place]. She is a former smoker. She drinks alcohol very rarely and in moderation. No illicit substance use. She designates her children as her surrogate decision makers. Code status: Full code. Smoking status: Former smoker Smoking end date: 03/28/75 Alcohol intake: never Substance use: never Living arrangements: alone Gender identity (if verbalized by the patient): Female Sexual Orientation (if Verbalized by the Patient): Straight or Heterosexual Spiritual care concerns: No Agree to blood products: Yes Meds Home Medications and Allergies Home Medications Medicati
[2021-10-16] MEDS: amLODIPine BESYLATE 5 MG TABLET 10 MG PO (09:38)
[2021-10-16] MEDS: ASCORBIC ACID 250 MG TABLET PO (09:38)
[2021-10-16] MEDS: PRAVASTATIN SODIUM 20 MG TABLET PO (09:39)
[2021-10-16] MEDS: CHOLECALCIFEROL 1,000 UNITS TABLET 1000 UNITS PO (09:39)
[2021-10-16] MEDS: CYANOCOBALAMIN 1,000 MCG TABLET 1000 MCG PO (09:39)
[2021-10-16] MEDS: DOCUSATE SODIUM 100 MG CAPSULE PO ×2 (09:40→17:46)
[2021-10-16] MEDS: FUROSEMIDE 20 MG TABLET PO (09:40)
[2021-10-16 11:32] LABS: Glucose Point of Care 157 mg/dl (65-105)
[2021-10-16] MEDS: SODIUM CHLORIDE 0.9% IV 1,000 ML 75 ML IV CONT (13:59)
[2021-10-16 14:00] VITALS: BP 123/42; PULSE 97; RESP 14; TEMP 36.9; O2SAT 97
--- NOTE | 2021-10-16 15:36 | P.PNIM_ITS ---
Progress Note: A&P Assessment and Plan (1) Gangrenous toe: Code(s): I96 - Gangrene, not elsewhere classified Status: Acute Assessment and Plan: * Foot x-ray found mild to moderate polyarticular osteoarthritis and the forefoot no lesions or suspicion for osteomyelitis * ABIs to indicated decreased arterial blood flow * Continue IV vanco add IV ceftriaxone * WBCs 11.9 today continue to trend * Pain medication 1 mg IV morphine q.6 p.r.n., [place] Q 4 p.r.n. and Tylenol * Antiemetics Zofran * General surgery consulted * PT and OT when appropriate * Wound care consult 10/16/2021 interval history: patient 86-year-old female with history peripheral vascular disease presented with a necrotic left great toe and worsening for last 3 weeks, patient was seen by General surgery recommended vascular evaluation and continue wound care, unfortunately we do not have vascular surgery service at the hospital, will have family take the patient to vascular as an outpatient, patient has hyponatremia will place the patient fluid restriction and monitor. (2) Chronic hyponatremia: Code(s): E87.1 - Hypo-osmolality and hyponatremia Status: Acute Assessment and Plan: * Current sodium 124 * Could be related to fluid overload * Will start normal saline at 75 an hour * Trend sodium * Adjust therapy as indicated * Consider nephrology (3) Hypertension: Code(s): I10 - Essential (primary) hypertension Status: Acute Assessment and Plan: * Current blood pressure 171/67 * Continue home amlodipine 10 mg p.o. daily * trend blood pressure * Adjust therapy as indicated (4) Dyslipidemia: Code(s): E78.5 - Hyperlipidemia, unspecified Status: Acute Assessment and Plan: * Continue home pravastatin 20 mg p.o. daily Subjective Date/time seen: 10/16/21 15:36 Toe pain Narrative: HPI: Patient is an 86 year old female with a past medical history of hyperlipidemia, PAD, hypertension who presented to the ED from the disassembler office for evaluation of her left great toe.? Patient stated that she went to her disassembler office about 3 weeks ago and he had told her to keep it clean and to follow back up in 3 weeks.? Patient went back for her 3 week follow-up and she was sent to the ED. patient stated this all started about 8 weeks ago.? Her biggest complaint was pain she stated that she is having pain all throughout her body.? She currently denies any other issues including chest pain, shortness of breath, nausea, vomiting, diarrhea, constipation, weakness or fatigue.? General surgery has been consulted for further evaluation.? Foot x-ray denies any osteomyelitis ABIs show arterial occlusive disease.? Patient has been started on IV vancomycin will add ceftriaxone.? Sodium is low at 124.? White count is slightly elevated at 11.9. 10/16/2021 interval history: patient 86-year-old female with history periph eral vascular disease presented with a necrotic left great toe and worsening for last 3 weeks, patient was seen by General surgery recommended vascular evaluation and continue wound care, unfortunately we do not have vascular surgery service at the hospital, will have family take the patient to vascular as an outpatient, patient has hyponatremia will place the patient fluid restriction and monitor. Review of Systems Review of Systems: All systems reviewed & are unremarkable except as noted in HPI and below Exam Narrative:
--- NOTE | 2021-10-16 15:36 | PM.IMPN ---
Progress Note: A&P Assessment and Plan (1) Gangrenous toe: Code(s): I96 - Gangrene, not elsewhere classified Status: Acute Assessment and Plan: Foot x-ray found mild to moderate polyarticular osteoarthritis and the forefoot no lesions or suspicion for osteomyelitis ABIs to indicated decreased arterial blood flow Continue IV vanco add IV ceftriaxone WBCs 11.9 today continue to trend Pain medication 1 mg IV morphine q.6 p.r.n., [place] Q 4 p.r.n. and Tylenol Antiemetics Zofran General surgery consulted PT and OT when appropriate Wound care consult 10/16/2021 interval history: patient 86-year-old female with history peripheral vascular disease presented with a necrotic left great toe and worsening for last 3 weeks, patient was seen by General surgery recommended vascular evaluation and continue wound care, unfortunately we do not have vascular surgery service at the hospital, will have family take the patient to vascular as an outpatient, patient has hyponatremia will place the patient fluid restriction and monitor. (2) Chronic hyponatremia: Code(s): E87.1 - Hypo-osmolality and hyponatremia Status: Acute Assessment and Plan: Current sodium 124 Could be related to fluid overload Will start normal saline at 75 an hour Trend sodium Adjust therapy as indicated Consider nephrology (3) Hypertension: Code(s): I10 - Essential (primary) hypertension Status: Acute Assessment and Plan: Current blood pressure 171/67 Continue home amlodipine 10 mg p.o. daily trend blood pressure Adjust therapy as indicated (4) Dyslipidemia: Code(s): E78.5 - Hyperlipidemia, unspecified Status: Acute Assessment and Plan: Continue home pravastatin 20 mg p.o. daily Subjective Date/time seen: 10/16/21 15:36 Toe pain Narrative: HPI: Patient is an 86 year old female with a past medical history of hyperlipidemia, PAD, hypertension who presented to the ED from the sexual assault nurse office for evaluation of her left great toe.? Patient stated that she went to her sexual assault nurse office about 3 weeks ago and he had told her to keep it clean and to follow back up in 3 weeks.? Patient went back for her 3 week follow-up and she was sent to the ED. patient stated this all started about 8 weeks ago.? Her biggest complaint was pain she stated that she is having pain all throughout her body.? She currently denies any other issues including chest pain, shortness of breath, nausea, vomiting, diarrhea, constipation, weakness or fatigue.? General surgery has been consulted for further evaluation.? Foot x-ray denies any osteomyelitis ABIs show arterial occlusive disease.? Patient has been started on IV vancomycin will add ceftriaxone.? Sodium is low at 124.? White count is slightly elevated at 11.9. 10/16/2021 interval history: patient 86-year-old female with history peripheral vascular disease presented with a necrotic left great toe and worsening for last 3 weeks, patient was seen by General surgery recommended vascular evaluation and continue wound care, unfortunately we do not have vascular surgery service at the hospital, will have family take the patient to vascular as an outpatient, patient has hyponatremia will place the patient fluid restriction and monitor. Review of Systems Review of Systems: All systems reviewed & are unremarkable except as noted in HPI and below Exam Narrative: elderly frail Patient is comfortable, NAD HEENT: eyes are clear and none icteric LUNGS: normal respiratory effort ABD: not distended Lower extremities: no edema SKIN: nonjaundiced Neuro: grossly intact. Objective Data Vital Signs Vital Signs: Vital Signs - 24 hr 10/15/21 17:57 10/15/21 21:14 10/16/21 05:20 Temperature 97.8 F 97.0 F L 98.9 F Pulse Rate 96 96 81 Respiratory Rate 20 18 20 Blood Pressure 145/58 H 171/67 H 139/56 L Pulse Oximetry 98 9
[2021-10-16] MEDS: HYDROcodone/acetaminophen (*CRX) 5-325 MG TABLET 1 TAB PO (17:46)
[2021-10-16 18:00] VITALS: PULSE 74; RESP 16; TEMP 36.2; O2SAT 97
[2021-10-16 22:55] VITALS: BP 146/65; PULSE 93; RESP 18; TEMP 36.7; O2SAT 95
[2021-10-17] MEDS: HYDROcodone/acetaminophen (*CRX) 5-325 MG TABLET 1 TAB PO ×4 (02:37→23:06)
[2021-10-17] MEDS: SODIUM CHLORIDE 0.9% IV 1,000 ML 75 ML IV CONT ×2 (04:46→23:19)
[2021-10-17 05:34] LABS: Hematocrit 31.2 % (37.0-47.0); Hemoglobin 10.9 g/dL (12.0-15.0); Mean Corpuscular HGB Conc 34.9 g/dl (32-36); Mean Corpuscular Volume 88.6 fl (80-100); Mean Platelet Volume 8.5 fl (7.4-10.4); Platelet Count Result 179 k/mm3 (150-375); Red Blood Count 3.52 M/mm3 (4.2-5.4); Red Cell Distribution Width 13.3 % (11.5-14.5); White Blood Count 6.5 K/mm3 (4.5-10.0)
[2021-10-17 05:39] LABS: Anion Gap 4 mmol/L (8-16); Blood Urea Nitrogen 9 mg/dL (7-17); Calcium 7.9 mg/dL (8.4-10.2); Carbon Dioxide 22 mmol/L (22-30); Chloride 96 mmol/L (98-107); Estimated CRCL calculation 43 ml/min; Estimated Glomerular Filt Rate > 60; Glucose 105 mg/dL (65-110); Potassium 3.9 mmol/L (3.4-5.0); Sodium 122 mmol/L (137-145)
[2021-10-17 06:23] VITALS: BP 118/47; PULSE 79; RESP 18; TEMP 36.9; O2SAT 95
[2021-10-17] MEDS: amLODIPine BESYLATE 5 MG TABLET 10 MG PO (08:25)
[2021-10-17] MEDS: DOCUSATE SODIUM 100 MG CAPSULE PO ×2 (08:26→17:19)
[2021-10-17] MEDS: CYANOCOBALAMIN 1,000 MCG TABLET 1000 MCG PO (08:26)
[2021-10-17] MEDS: ASCORBIC ACID 250 MG TABLET PO (08:26)
[2021-10-17] MEDS: CHOLECALCIFEROL 1,000 UNITS TABLET 1000 UNITS PO (08:26)
[2021-10-17] MEDS: PRAVASTATIN SODIUM 20 MG TABLET PO (08:27)
[2021-10-17] MEDS: FUROSEMIDE 20 MG TABLET PO ×2 (08:27→17:19)
[2021-10-17 09:34] VITALS: O2SAT 95
--- NOTE | 2021-10-17 13:24 | P.PNIM_ITS ---
Progress Note: A&P Assessment and Plan (1) Gangrenous toe: Code(s): I96 - Gangrene, not elsewhere classified Status: Acute Assessment and Plan: * Foot x-ray found mild to moderate polyarticular osteoarthritis and the forefoot no lesions or suspicion for osteomyelitis * ABIs to indicated decreased arterial blood flow * Continue IV vanco add IV ceftriaxone * WBCs 11.9 today continue to trend * Pain medication 1 mg IV morphine q.6 p.r.n., [place] Q 4 p.r.n. and Tylenol * Antiemetics Zofran * General surgery consulted * PT and OT when appropriate * Wound care consult 10/16/2021 interval history: patient 86-year-old female with history peripheral vascular disease presented with a necrotic left great toe and worsening for last 3 weeks, patient was seen by General surgery recommended vascular evaluation and continue wound care, unfortunately we do not have vascular surgery service at the hospital, will have family take the patient to vascular as an outpatient, patient has hyponatremia will place the patient fluid restriction and monitor. 10/17/2021 interval history: patient 86-year-old female with history peripheral vascular disease presented with a necrotic left great toe and worsening for last 3 weeks, patient was seen by General surgery recommended vascular evaluation and continue wound care, unfortunately we do not have vascular surgery service at the hospital, Today I spoke with patient daughter in law Tran, Patient has seen Dr. William a vascular surgeon in the past and the daughter will make appointment next week, patient remains clinically stable, patient has chronic hyponatremia, placed the patient on fluid restriction, genlty hydrate the patient with NS, and increased lasix 20mg to BID from q daily, and monitor. (2) Chronic hyponatremia: Code(s): E87.1 - Hypo-osmolality and hyponatremia Status: Acute Assessment and Plan: * Current sodium 124 * Could be related to fluid overload * Will start normal saline at 75 an hour * Trend sodium * Adjust therapy as indicated * Consider nephrology (3) Hypertension: Code(s): I10 - Essential (primary) hypertension Status: Acute Assessment and Plan: * Current blood pressure 171/67 * Continue home amlodipine 10 mg p.o. daily * trend blood pressure * Adjust therapy as indicated (4) Dyslipidemia: Code(s): E78.5 - Hyperlipidemia, unspecified Status: Acute Assessment and Plan: * Continue home pravastatin 20 mg p.o. daily Subjective Date/time seen: 10/17/21 13:24 10/17/2021 interval history: patient 86-year-old female with history peripheral vascular disease presented with a necrotic left great toe and worsening for last 3 weeks, patient was seen by General surgery recommended vascular evaluation and continue wound care, unfortunately we do not have vascular surgery service at the hospital, Today I spoke with patient daughter in law [place], Patient has seen Dr. William a vascular surgeon in the past and the daughter will make appointment next week, patient remains clinically stable, patient has chronic hyponatremia, placed the patient on fluid restriction, genlty hydrate the patient with NS, and increased lasix 20mg to BID from q daily, and monitor. Exam Narrative: elderly frail Patient is comfortable, NAD HEENT: eyes are clear and none icteric LUNGS: normal respiratory effort ABD: not distended Lower extremities: no edema SKIN: nonjaundiced Ne
--- NOTE | 2021-10-17 13:24 | PM.IMPN ---
Progress Note: A&P Assessment and Plan (1) Gangrenous toe: Code(s): I96 - Gangrene, not elsewhere classified Status: Acute Assessment and Plan: Foot x-ray found mild to moderate polyarticular osteoarthritis and the forefoot no lesions or suspicion for osteomyelitis ABIs to indicated decreased arterial blood flow Continue IV vanco add IV ceftriaxone WBCs 11.9 today continue to trend Pain medication 1 mg IV morphine q.6 p.r.n., [place] Q 4 p.r.n. and Tylenol Antiemetics Zofran General surgery consulted PT and OT when appropriate Wound care consult 10/16/2021 interval history: patient 86-year-old female with history peripheral vascular disease presented with a necrotic left great toe and worsening for last 3 weeks, patient was seen by General surgery recommended vascular evaluation and continue wound care, unfortunately we do not have vascular surgery service at the hospital, will have family take the patient to vascular as an outpatient, patient has hyponatremia will place the patient fluid restriction and monitor. 10/17/2021 interval history: patient 86-year-old female with history peripheral vascular disease presented with a necrotic left great toe and worsening for last 3 weeks, patient was seen by General surgery recommended vascular evaluation and continue wound care, unfortunately we do not have vascular surgery service at the hospital, Today I spoke with patient daughter in law Tran, Patient has seen Dr. William a vascular surgeon in the past and the daughter will make appointment next week, patient remains clinically stable, patient has chronic hyponatremia, placed the patient on fluid restriction, genlty hydrate the patient with NS, and increased lasix 20mg to BID from q daily, and monitor. (2) Chronic hyponatremia: Code(s): E87.1 - Hypo-osmolality and hyponatremia Status: Acute Assessment and Plan: Current sodium 124 Could be related to fluid overload Will start normal saline at 75 an hour Trend sodium Adjust therapy as indicated Consider nephrology (3) Hypertension: Code(s): I10 - Essential (primary) hypertension Status: Acute Assessment and Plan: Current blood pressure 171/67 Continue home amlodipine 10 mg p.o. daily trend blood pressure Adjust therapy as indicated (4) Dyslipidemia: Code(s): E78.5 - Hyperlipidemia, unspecified Status: Acute Assessment and Plan: Continue home pravastatin 20 mg p.o. daily Subjective Date/time seen: 10/17/21 13:24 10/17/2021 interval history: patient 86-year-old female with history peripheral vascular disease presented with a necrotic left great toe and worsening for last 3 weeks, patient was seen by General surgery recommended vascular evaluation and continue wound care, unfortunately we do not have vascular surgery service at the hospital, Today I spoke with patient daughter in law Tran, Patient has seen Dr. William a vascular surgeon in the past and the daughter will make appointment next week, patient remains clinically stable, patient has chronic hyponatremia, placed the patient on fluid restriction, genlty hydrate the patient with NS, and increased lasix 20mg to BID from q daily, and monitor. Exam Narrative: elderly frail Patient is comfortable, NAD HEENT: eyes are clear and none icteric LUNGS: normal respiratory effort ABD: not distended Lower extremities: no edema SKIN: nonjaundiced Neuro: grossly intact. Objective Data Vital Signs Vital Signs: Vital Signs - 24 hr 10/16/21 14:00 10/16/21 18:00 10/16/21 19:53 Temperature 98.4 F 97.2 F L Pulse Rate 97 74 Respiratory Rate 14 16 Blood Pressure 123/42 L Pulse Oximetry 97 97 Oxygen Delivery Room Air 10/16/21 22:55 10/17/21 06:23 10/17/21 09:34 Temperature 98.1 F 98.4 F Pulse Rate 93 79 Respiratory Rate 18 18 Blood Pressure 146/65 H 118/47 L Pulse Oximet
[2021-10-17 14:22] VITALS: BP 117/47; PULSE 83; RESP 16; TEMP 36.3; O2SAT 98
[2021-10-17 20:27] VITALS: BP 128/51; PULSE 82; RESP 16; TEMP 37.7; O2SAT 96
[2021-10-18 03:04] VITALS: BP 130/45; PULSE 88; RESP 16; TEMP 37.1; O2SAT 94
[2021-10-18] MEDS: HYDROcodone/acetaminophen (*CRX) 5-325 MG TABLET 1 TAB PO ×4 (03:12→21:38)
[2021-10-18 05:10] LABS: Mean Corpuscular HGB Conc 34.5 g/dl (32-36); Mean Corpuscular Hemoglobin 30.9 pg (26-34); Mean Corpuscular Volume 89.5 fl (80-100); Mean Platelet Volume 8.8 fl (7.4-10.4); Platelet Count Result 160 k/mm3 (150-375); Red Blood Count 3.24 M/mm3 (4.2-5.4); Red Cell Distribution Width 13.6 % (11.5-14.5); White Blood Count 5.4 K/mm3 (4.5-10.0)
[2021-10-18 05:27] LABS: Anion Gap 7 mmol/L (8-16); Blood Urea Nitrogen 11 mg/dL (7-17); Calcium 7.7 mg/dL (8.4-10.2); Carbon Dioxide 22 mmol/L (22-30); Chloride 95 mmol/L (98-107); Estimated CRCL calculation 43 ml/min; Estimated Glomerular Filt Rate > 60; Glucose 104 mg/dL (65-110); Potassium 3.5 mmol/L (3.4-5.0); Sodium 124 mmol/L (137-145)
[2021-10-18] MEDS: amLODIPine BESYLATE 5 MG TABLET 10 MG PO (08:40)
[2021-10-18] MEDS: ASCORBIC ACID 250 MG TABLET PO (08:40)
[2021-10-18] MEDS: CHOLECALCIFEROL 1,000 UNITS TABLET 1000 UNITS PO (08:40)
[2021-10-18] MEDS: CYANOCOBALAMIN 1,000 MCG TABLET 1000 MCG PO (08:41)
[2021-10-18] MEDS: FUROSEMIDE 20 MG TABLET PO ×2 (08:41→17:35)
[2021-10-18] MEDS: DOCUSATE SODIUM 100 MG CAPSULE PO ×2 (08:41→17:35)
[2021-10-18] MEDS: PRAVASTATIN SODIUM 20 MG TABLET PO (08:42)
[2021-10-18] MEDS: SODIUM CHLORIDE 0.9% IV 1,000 ML 75 ML IV CONT (10:27)
--- NOTE | 2021-10-18 12:21 | PM.IMPN ---
Progress Note: A&P Assessment and Plan (1) Gangrenous toe: Code(s): I96 - Gangrene, not elsewhere classified Status: Acute Assessment and Plan: Foot x-ray found mild to moderate polyarticular osteoarthritis and the forefoot no lesions or suspicion for osteomyelitis ABIs to indicated decreased arterial blood flow Continue IV vanco add IV ceftriaxone WBCs 11.9 today continue to trend Pain medication 1 mg IV morphine q.6 p.r.n., [place] Q 4 p.r.n. and Tylenol Antiemetics Zofran General surgery consulted PT and OT when appropriate Wound care consult 10/16/2021 interval history: patient 86-year-old female with history peripheral vascular disease presented with a necrotic left great toe and worsening for last 3 weeks, patient was seen by General surgery recommended vascular evaluation and continue wound care, unfortunately we do not have vascular surgery service at the hospital, will have family take the patient to vascular as an outpatient, patient has hyponatremia will place the patient fluid restriction and monitor. 10/17/2021 interval history: patient 86-year-old female with history peripheral vascular disease presented with a necrotic left great toe and worsening for last 3 weeks, patient was seen by General surgery recommended vascular evaluation and continue wound care, unfortunately we do not have vascular surgery service at the hospital, Today I spoke with patient daughter in law Tran, Patient has seen Dr. Stewart campbell vascular surgeon in the past and the daughter will make appointment next week, patient remains clinically stable, patient has chronic hyponatremia, placed the patient on fluid restriction, genlty hydrate the patient with NS, and increased lasix 20mg to BID from q daily, and monitor. 10/18/2021 interval history: patient 86-year-old female with history peripheral vascular disease presented with a necrotic left great toe and worsening for last 3 weeks, patient was seen by General surgery recommended vascular evaluation and continue wound care, blood culture no growth so far will continue to monitor, if blood cultures negative tomorrow will stop the IV antibiotic, unfortunately we do not have vascular surgery service at the hospital, on 10/17 I spoke with patient daughter in law Mathew, Patient has seen Dr. Stewart campbell vascular surgeon in the past and the daughter will make appointment next week, patient remains clinically stable, patient has chronic hyponatremia, placed the patient on fluid restriction, genlty hydrate the patient with NS, and increased lasix 20mg to BID from q daily, patient's sodium is trending up and monitor. (2) Chronic hyponatremia: Code(s): E87.1 - Hypo-osmolality and hyponatremia Status: Acute Assessment and Plan: Current sodium 124 Could be related to fluid overload Will start normal saline at 75 an hour Trend sodium Adjust therapy as indicated Consider nephrology (3) Hypertension: Code(s): I10 - Essential (primary) hypertension Status: Acute Assessment and Plan: Current blood pressure 171/67 Continue home amlodipine 10 mg p.o. daily trend blood pressure Adjust therapy as indicated (4) Dyslipidemia: Code(s): E78.5 - Hyperlipidemia, unspecified Status: Acute Assessment and Plan: Continue home pravastatin 20 mg p.o. daily Subjective Date/time seen: 10/18/21 12:21 10/18/2021 interval history: patient 86-year-old female with history peripheral vascular disease presented with a necrotic left great toe and worsening for last 3 weeks, patient was seen by General surgery recommended vascular evaluation and continue wound care, blood culture no growth so far will continue to monitor, if blood cultures negative tomorrow will stop the IV antibiotic, unfortunately we do not have vascular surgery service at the hospital, on 10/17 I spoke with patient daughter in law Cody Mathew
[2021-10-18 14:00] VITALS: BP 122/55; PULSE 73; RESP 16; TEMP 36.9; O2SAT 98
[2021-10-18 17:07] LABS: Vancomycin Trough 7.1 ug/mL (10.0-20.0)
[2021-10-18 20:00] VITALS: PULSE 73; RESP 16; O2SAT 98
[2021-10-18 21:56] VITALS: BP 155/48; PULSE 88; RESP 16; TEMP 36.8; O2SAT 94
[2021-10-19] MEDS: SODIUM CHLORIDE 0.9% IV 1,000 ML 75 ML IV CONT (01:22)
[2021-10-19] MEDS: HYDROcodone/acetaminophen (*CRX) 5-325 MG TABLET 1 TAB PO ×3 (01:47→10:08)
[2021-10-19 06:07] LABS: Hematocrit 29.8 % (37.0-47.0); Mean Corpuscular HGB Conc 33.6 g/dl (32-36); Mean Corpuscular Hemoglobin 30.2 pg (26-34); Mean Platelet Volume 9.3 fl (7.4-10.4); Platelet Count Result 165 k/mm3 (150-375); Red Blood Count 3.31 M/mm3 (4.2-5.4); Red Cell Distribution Width 13.5 % (11.5-14.5); White Blood Count 6.3 K/mm3 (4.5-10.0)
[2021-10-19 06:23] VITALS: BP 139/55; PULSE 73; RESP 16; TEMP 36.6; O2SAT 97
[2021-10-19 06:23] LABS: Anion Gap 6 mmol/L (8-16); Blood Urea Nitrogen 9 mg/dL (7-17); Calcium 7.7 mg/dL (8.4-10.2); Carbon Dioxide 25 mmol/L (22-30); Chloride 95 mmol/L (98-107); Estimated CRCL calculation 43 ml/min; Estimated Glomerular Filt Rate > 60; Glucose 98 mg/dL (65-110); Potassium 3.2 mmol/L (3.4-5.0); Sodium 126 mmol/L (137-145)
[2021-10-19] MEDS: PRAVASTATIN SODIUM 20 MG TABLET PO (09:18)
[2021-10-19] MEDS: CYANOCOBALAMIN 1,000 MCG TABLET 1000 MCG PO (09:18)
[2021-10-19] MEDS: FUROSEMIDE 20 MG TABLET PO (09:18)
[2021-10-19] MEDS: ASCORBIC ACID 250 MG TABLET PO (09:18)
[2021-10-19] MEDS: amLODIPine BESYLATE 5 MG TABLET 10 MG PO (09:19)
[2021-10-19] MEDS: CHOLECALCIFEROL 1,000 UNITS TABLET 1000 UNITS PO (09:19)
[2021-10-19 10:21] VITALS: O2SAT 96
[2021-10-19 12:30] LABS: EDCOVIDSCREEN Negative (Negative)
--- NOTE | 2021-10-29 15:42 | PM.TDS ---
Transfer Discharge Sum: Prov Provider Date of admission: 10/15/21 15:59 Primary care physician: Nino Kaiser MD Admitting clinician: Siena Casillas MD Consults: 10/15/21 Consult to Physician Routine Comment: Consulting Provider: Nano Vance Reason for consultation: Gangrene toe on left Has provider been notified: Yes Wound/ET Consult Routine Reason for Consult:: Toe help, support, and advice DS: Admitting Diagnosis Discharge Date 10/19/21 Admitting Diagnosis Gangrenous toe: DS: Discharge Diagnosis Discharge Diagnosis (1) Gangrenous toe: Code(s): I96 - Gangrene, not elsewhere classified Status: Acute Assessment and Plan: Foot x-ray found mild to moderate polyarticular osteoarthritis and the forefoot no lesions or suspicion for osteomyelitis ABIs to indicated decreased arterial blood flow Continue IV vanco add IV ceftriaxone WBCs 11.9 today continue to trend Pain medication 1 mg IV morphine q.6 p.r.n., [place] Q 4 p.r.n. and Tylenol Antiemetics Zofran General surgery consulted PT and OT when appropriate Wound care consult 10/16/2021 interval history: patient 86-year-old female with history peripheral vascular disease presented with a necrotic left great toe and worsening for last 3 weeks, patient was seen by General surgery recommended vascular evaluation and continue wound care, unfortunately we do not have vascular surgery service at the hospital, will have family take the patient to vascular as an outpatient, patient has hyponatremia will place the patient fluid restriction and monitor. 10/17/2021 interval history: patient 86-year-old female with history peripheral vascular disease presented with a necrotic left great toe and worsening for last 3 weeks, patient was seen by General surgery recommended vascular evaluation and continue wound care, unfortunately we do not have vascular surgery service at the hospital, Today I spoke with patient daughter in law [place], Patient has seen Dr. William a vascular surgeon in the past and the daughter will make appointment next week, patient remains clinically stable, patient has chronic hyponatremia, placed the patient on fluid restriction, genlty hydrate the patient with NS, and increased lasix 20mg to BID from q daily, and monitor. 10/18/2021 interval history: patient 86-year-old female with history peripheral vascular disease presented with a necrotic left great toe and worsening for last 3 weeks, patient was seen by General surgery recommended vascular evaluation and continue wound care, blood culture no growth so far will continue to monitor, if blood cultures negative tomorrow will stop the IV antibiotic, unfortunately we do not have vascular surgery service at the hospital, on 10/17 I spoke with patient daughter in law Mtahew, Patient has seen Dr. William a vascular surgeon in the past and the daughter will make appointment next week, patient remains clinically stable, patient has chronic hyponatremia, placed the patient on fluid restriction, genlty hydrate the patient with NS, and increased lasix 20mg to BID from q daily, patient's sodium is trending up and monitor. (2) Chronic hyponatremia: Code(s): E87.1 - Hypo-osmolality and hyponatremia Status: Acute Assessment and Plan: Current sodium 124 Could be related to fluid overload Will start normal saline at 75 an hour Trend sodium Adjust therapy as indicated Consider nephrology (3) Hypertension: Code(s): I10 - Essential (primary) hypertension Status: Acute Assessment and Plan: Current blood pressure 171/67 Continue home amlodipine 10 mg p.o. daily trend blood pressure Adjust therapy as indicated (4) Dyslipidemia: Code(s): E78.5 - Hyperlipidemia, unspecified Status: Acute Assessment and Plan: Continue home pravastatin 20 mg p.o. daily Transfer Discharge Sum
== END 2021-10-19 13:35 | disposition short-term general hospital (02) | DRG 300 ==
LOC: ANHED 15:50 → ANH2MED 18:13
PROVIDERS: Family Medicine; Admitting Provider Family Medicine; Emergency Provider Emergency Medicine; PCP Emergency Medicine; Visit Provider Family Medicine
DX: I96 Gangrene, not elsewhere classified (principal); E87.1 Hypo-osmolality and hyponatremia; C91.10 Chronic lymphocytic leukemia of B-cell type not having achieved remission; I10 Essential (primary) hypertension; E78.5 Hyperlipidemia, unspecified; I35.0 Nonrheumatic aortic (valve) stenosis; I44.7 Left bundle-branch block, unspecified; Z79.82 Long term (current) use of aspirin; Z87.891 Personal history of nicotine dependence; Z20.822 Contact with and (suspected) exposure to COVID-19
CPT/HCPCS: 36415; 73630; 80048; 80053; 80202; 82948; 83605; 85025; 85027; 85610; 85730; 86140; 87040; 87426; 93922; 99285; A9270; C9803; J0696; J2270; J3370; J7030; U0003; U0005

== ENCOUNTER 2021-12-28 13:20 | Outpatient (CLI) | payer MEDICARE, MEDICAID, SELFPAY ==
--- NOTE | 2021-12-28 13:30 | ECHO_ITS ---
Patient Info Name: Martha Martinez Age: 86 years : 1935 Gender: Female Ht: 62 in Wt: 115 lbs BSA: 1.51 m2 HR: 81 bpm BP: 168 / 78 mmHg Heart Rhythm: Sinus Rhythm Technical Quality: Fair Exam Date: 12/28/2021 2:10 PM Exam Location: [facility] Patient Status: Outpatient Admit Date: 12/28/2021 Staff Ordering Physician: Danis Urena DO Energy Attorney: Priyanka Li RDCS Attending Provider: Danis Urena DO Referring Physician: Romel STERLING; Exam Type: CA echo dop color flow Study Info Indications I35.0 - Nonrheumatic aortic (valve) stenosis Complete two-dimensional, color flow and Doppler transthoracic echocardiogram is performed. Summary 1. Complete two-dimensional, color flow and Doppler transthoracic echocardiogram is performed. 2. Left ventricular chamber dimension is normal. 3. Left ventricular systolic function is normal, estimated at 60-65%. 4. There is mildly increased left ventricular wall thickness. 5. The left ventricular diastolic function is grade I diastolic dysfunction. 6. E/e' 19 is elevated. 7. Left atrial chamber dimension is moderately enlarged. 8. There is severe aortic valve sclerosis. 9. There is critical aortic valve stenosis with a peak velocity of 496.16 cm/s, mean gradient of 49 mmHg, and aortic valve area of 0.61 cm2. 10. There is mild aortic valve regurgitation. 11. The mitral valve has moderately calcified annulus. 12. There is mild mitral valve regurgitation. 13. There is moderate tricuspid valve regurgitation. 14. Moderate pulmonary hypertension, estimated pulmonary arterial systolic pressure is 53 mmHg. 15. There is trace pulmonic regurgitation. Left Ventricle E/e' 19 is elevated. Left ventricular chamber dimension is normal. Left ventricular systolic function is normal, estimated at 60-65%. There is mildly increased left ventricular wall thickness. The left ventricular diastolic function is grade I diastolic dysfunction. Right Ventricle Right ventricular systolic function is normal and with normal TAPSE 2.2 cm. Right ventricular chamber dimension is normal. Left Atria Left atrial chamber dimension is moderately enlarged. Right Atria Right atrial chamber dimension is normal. Aortic Valve The aortic valve is trileaflet. There is severe aortic valve sclerosis. There is critical aortic valve stenosis with a peak velocity of 496.16 cm/s, mean gradient of 49 mmHg, and aortic valve area of 0.61 cm2. There is mild aortic valve regurgitation. Pulmonic Valve There is trace pulmonic regurgitation. Mitral Valve The mitral valve has moderately calcified annulus. There is no mitral valve stenosis. There is mild mitral valve regurgitation. Tricuspid Valve There is moderate tricuspid valve regurgitation. Moderate pulmonary hypertension, estimated pulmonary arterial systolic pressure is 53 mmHg. Pericardium/Pleural There is no pericardial effusion. Inferior Vena Cava Normal inferior vena cava with >50% collapse upon inspiration consistent with normal right atrial pressure, 5 mmHg. Aorta The aortic root size at the sinus of Valsalva is normal. Left Ventricular Outflow Tract Name Value Normal LVOT 2D LVOT Diameter 1.71 cm
== END 2021-12-28 13:21 | disposition home or self-care (01) ==
PROVIDERS: PCP Emergency Medicine; Visit Provider Internal Medicine Cardiovascular Disease
DX: I08.3 Combined rheumatic disorders of mitral, aortic and tricuspid valves (principal)
CPT/HCPCS: 93306; C8929

== ENCOUNTER 2022-06-30 15:49 | Emergency (ER) | payer MEDICARE, MEDICAID, SELFPAY ==
--- NOTE | ~2022-06-30 | XR_ITS ---
EXAMINATION: XR chest 2V DATE: 06/30/2022 16:29 INDICATION: Wheezing. Cough. TECHNIQUE: Frontal and lateral views of the chest were obtained. COMPARISON: Chest single view 04/09/2021 FINDINGS: The chest demonstrates clear lungs without pneumonia, pleural effusion, or pneumothorax. Th e heart size is normal. IMPRESSION: 1. No acute cardiopulmonary disease. Reviewed, dictated and finalized at location A.
[2022-06-30 16:04] VITALS: BP 149/57; PULSE 74; RESP 18; TEMP 36.4; O2SAT 96
--- NOTE | 2022-06-30 16:10 | ED.URI ---
HPI - URI/Sore Throat General Chief Complaint: Upper Respiratory Infection Stated Complaint: congestion Time Seen by Provider: 06/30/22 16:11 Source: patient Mode of arrival: ambulatory Limitations: no limitations History of Present Illness HPI Narrative: 87 y/o female presented for c/o wheezing since this morning. States she woke with wheezing. Endorses sob with exertion and nonproductive cough. Denies dizziness, palpitations, chest pain, n/v/d/f/c. Has chronic lower extremity edema, unchanged from baseline. Hx critical aortic stenosis per reports, HTN, PAD, LBBB, CLL, chronic hyponatremia. Related Data Allergies Allergy/AdvReac Type Severity Reaction Status Date / Time adhesive tape Allergy Blister Verified 06/30/22 16:17 bacitracin Allergy Blister Verified 06/30/22 16:17 [From Neosporin ([id number])] neomycin Allergy Blister Verified 06/30/22 16:17 [From Neosporin ([id number])] polymyxin B Allergy Blister Verified 06/30/22 16:17 [From Neosporin ([id number])] ibuprofen AdvReac Other Verified 06/30/22 16:17 Review of Systems Review of Systems: CONSTITUTIONAL: Denies body aches, fever, chills, or sweats. EYES: Denies visual changes, redness, or discharge. ENT: Denies rhinorrhea, congestion, sore throat, or otalgia. CARDIOVASCULAR: Denies chest pain, palpitations, or edema. RESPIRATORY: Reports cough, sob, wheezing. SKIN: Denies rash, itching, or wounds. MUSCULOSKELETAL: Denies back pain, joint pain, or myalgia. NEUROLOGIC: Denies headache, numbness, tingling, or weakness. PSYCH: Denies depression or anxiety. All systems reviewed & are unremarkable except as noted in HPI and below [facility] Past Medical History Medical History Aortic stenosis Severe aortic stenosis with a valve area of 0.9 cm2 on echocardiogram in October 2020. Chronic hyponatremia Chronic lymphocytic leukemia Diastolic dysfunction 11/05/20 Echo: EF 65-70%, mild LVH, grade I diastolic dysfunction (E/e' 16), mild LAE, severe (CHANDLER 0.9 cm2), mild AI/TR, RVSP 49 mmHg. Dyslipidemia Hypertension Left bundle branch block Lexiscan Myoview negative for ischemia in July 2018. Peripheral arterial disease Arterial Duplex LE on 07/12/2018: Left 0.73 and right LANIE 0.37. Right brachial 220 and left 261 mmHg. Status post closed fracture of right femur Surgical History Surgical History No history of previous surgery Family History Family History Sibling Primary cancer of brain Mother Hypertension Social History Social History Social History: The patient lives in her own home in [place]. She is a former smoker. She drinks alcohol very rarely and in moderation. No illicit substance use. She designates her children as her surrogate decision makers. Code status: Full code. Smoking status: Former smoker Tobacco type: cigarettes Smoking end date: 03/28/75 Additional smoking assessment comments: pt states she was a light smoker. smoking less than 1/2 a pack a day Alcohol intake: never Substance use: never Living arrangements: alone Occupation/Education: retired Gender identity (if verbalized by the patient): Female Sexual Orientation (if Verbalized by the Patient): Straight or Heterosexual Spiritual care concerns: No Agree to blood products: Yes Comments At time of signature, I have reviewed and agree with nursing past medical, surgical, social and family history unless otherwise noted. Please see nursing chart for further information. There is no relevant family history pertinent to the presenting complaint Exam Narrative: GENERAL: mildly ill-appearing, in no acute distress. EYES: EOMI. No redness or drainage. Conjunctivae normal. ENT: Mucous membranes pink and moist
[2022-06-30] MEDS: ALBUTEROL SULFATE NEB 2.5 MG/3 ML INH INHALATION (16:48)
[2022-06-30] MEDS: IPRATROPIUM BR 0.02% INH SOLN 0.5 MG/2.5 ML VIAL INHALATION (16:49)
== END 2022-06-30 17:30 | disposition short-term general hospital (02) ==
PROVIDERS: Emergency Provider Nurse Practitioner Family; PCP Emergency Medicine
DX: R06.2 Wheezing (principal); Z87.891 Personal history of nicotine dependence; I35.0 Nonrheumatic aortic (valve) stenosis; E78.5 Hyperlipidemia, unspecified; I10 Essential (primary) hypertension; I73.9 Peripheral vascular disease, unspecified; Z85.6 Personal history of leukemia
CPT/HCPCS: 71046; 99213; G0463

== ENCOUNTER 2022-06-30 17:43 | Inpatient (IN) | payer MEDICARE, MEDICAID, SELFPAY ==
[2022-06-30] VITALS (30 sets, daily range): BP systolic 129–169; BP diastolic 55–93; PULSE 74–104; RESP 11–29; TEMP 36.4–36.6; O2SAT 90–100; BMI 23.3; BMI 22.6
--- NOTE | ~2022-06-30 | XR_ITS ---
XR chest 2V DATE: 07/03/2022 08:35 INDICATION: Wheezing. Congestive heart failure exacerbation. TECHNIQUE: AP and lateral views COMPARISON: June 30, 2022 CT chest June 30, 2022 PA and lateral chest FINDINGS: Heart size is within normal range. Is aortic calcification. No pulmonary infiltrate or consolidation, pleural effusion or pulmonary vascular congestion or pneumo thorax. Diffuse osteopenia. IMPRESSION: No active cardiopulmonary disease Osteopenia Reviewed, dictated and finalized at location A.
--- NOTE | ~2022-06-30 | CT_ITS ---
EXAMINATION: CT diagnostic chest w con DATE: 06/30/2022 20:27 INDICATION: diffuse wheezing, leukocytosis, SOB/cough TECHNIQUE: Computed tomography (CT) of the chest was performed with 100 mL Omnipaque-350 intravenous contrast. Automated exposure control and iterative reconstruction technique were employed. The dose-l ength product was 120.36 mGy-cm. COMPARISON: X-ray chest, same date. FINDINGS: CHEST: Thoracic aorta: Ascending aortic ectasia. Moderate arch calcification. Lung parenchyma and airways: Bibasilar scar/atelectasis. Mild septal thickening in the lung bases. Mu ltiple sub-6 mm pulmonary nodules. Thoracic inlet, axillae and chest wall: No thyroid or soft tissue mass. No axillary lymphadenopathy. Prominent bilateral axillary lymph nodes are not pathologic by size criteria Mediastinum: No mass. Enlarged subcarinal lymph node. Prominent bilateral hilar nodes. Dilated centra l pulmonary arteries as can be seen with pulmonary arterial hypertension. Heart and pericardium: Normal heart size. No pericardial effusion. Mitral and aortic valve calcificat ions. Coronary artery calcifications: Moderate. Pleura: No effusion or mass. Upper abdomen: No significant finding. Thoracic bones: No acute osseous finding in the chest. IMPRESSION: Mild interstitial pulmonary edema. Subcarinal lymphadenopathy with additional prominent mediastinal, bilateral hilar, and bilateral axillary lymph nodes. Multiple sub-6 mm pulmonary nodules, requiring n o additional workup unless the patient is at high risk, in which case consider a follow-up low-dose n oncontrast CT of the chest in 12 months. Reviewed, dictated and finalized at location K. IMPRESSION: Mild interstitial pulmonary edema. Subcarinal lymphadenopathy with additional p rominent mediastinal, bilateral hilar, and bilateral axillary lymph nodes. Mult iple sub-6 mm pulmonary nodules, requiring no additional workup unless the lisseth ent is at high risk, in which case consider a follow-up low-dose noncontrast CT of the chest in 12 months.
--- NOTE | 2022-06-30 17:58 | ECG_ITS ---
Measurements Intervals [place] Rate: 73 P: 59 GA: 140 QRS: 3 QRSD: 146 T: 183 QT: 417 QTc: 461 Interpretive Statements SINUS RHYTHM WITH OCCASIONAL SUPRAVENTRICULAR PREMATURE COMPLEXES LEFT BUNDLE BRANCH BLOCK [120+ ms QRS DURATION, 80+ ms Q/S IN V1/V2, 85+ ms R IN I/aVL/V5/V6] COMPARED TO ECG 04/09/2021 12:27:42 NO SIGNIFICANT CHANGES Electronically Signed On 07-01-2022 10:35:01 CDT by Moises Montilla M.D.
--- NOTE | 2022-06-30 17:59 | ED.SOB ---
HPI - SOB/Dyspnea General Chief Complaint: Shortness of Breath/Dyspnea <Jocelyn Restrepo PA-C - Last Filed: 06/30/22 21:41> Stated Complaint: sob <VIRGIL Harmon Last Filed: 06/30/22 21:41> Time Seen by Provider: 06/30/22 17:52 <VIRGIL Harmon Last Filed: 06/30/22 21:41> History of Present Illness HPI Narrative: Patient is 87-year-old female with a history of aortic stenosis, hypertension, hyperlipidemia, referred from urgent care due to wheezing today. Patient states that she has had sinus congestion, dry cough, and sneezing x 3 days. States that she woke up today with audible wheezing and worsening symptoms which prompted her to go to an urgent care facility. She is short of breath at rest and on exertion. Mild SOB. She was given a breathing treatment with moderate improvement of her dyspnea but wheezing and symptoms persisted. No chest pain, fevers. She has chronic leg swelling, no worse than usual. No history of lung disease. 01/16 Echo: EF 65-70% <VIRGIL Harmon Last Filed: 06/30/22 21:41> Related Data Home Medications: Home Medications Medication Instructions Recorded Confirmed acetaminophen 325 mg tablet 650 mg PO Q4H PRN Pain 06/30/22 06/30/22 acetaminophen 325 mg tablet 650 mg PO QHS 06/30/22 06/30/22 losartan 25 mg tablet 25 mg PO QAM 06/30/22 06/30/22 <VIRGIL Harmon Last Filed: 06/30/22 21:41> Allergies/Adverse Reactions: Allergies Allergy/AdvReac Type Severity Reaction Status Date / Time adhesive tape Allergy Blister Verified 06/30/22 22:23 bacitracin Allergy Blister Verified 06/30/22 22:23 [From Neosporin ([id number])] neomycin Allergy Blister Verified 06/30/22 22:23 [From Neosporin ([id number])] polymyxin B Allergy Blister Verified 06/30/22 22:23 [From Neosporin ([id number])] ibuprofen AdvReac Other Verified 06/30/22 22:23 <Jocelyn Restrepo PA-C - Last Filed: 06/30/22 21:41> Review of Systems Review of Systems: Gen: Denies fevers or chills Eyes: Denies eye pain or visual change ENT: reports congestion Respiratory: reports cough and SOB CV: Denies chest pain or palpitations GI: Denies abdominal pain nausea, emesis or diarrhea : denies burning, urgency, frequency or hematuria Musculoskeletal: Denies back pain or muscle pain Neuro: Denies numbness, tingling, weakness or focal weakness Skin: Denies rash Except as documented, all other systems reviewed and negative <Jocelyn Restrepo PA-C - Last Filed: 06/30/22 21:41> [facility] Past Medical History Medical History: Medical History Aortic stenosis Severe aortic stenosis with a valve area of 0.9 cm2 on echocardiogram in October 2020. Chronic hyponatremia Chronic lymphocytic leukemia Diastolic dysfunction 11/05/20 Echo: EF 65-70%, mild LVH, grade I diastolic dysfunction (E/e' 16), mild LAE, severe (CHANDLER 0.9 cm2), mild AI/TR, RVSP 49 mmHg. Dyslipidemia Hypertension Left bundle branch block Lexiscan Myoview negative for ischemia in July 2018. Peripheral arterial disease Arterial Duplex LE on 07/12/2018: Left 0.73 and right LANIE 0.37. Right brachial 220 and left 261 mmHg. Status post closed fracture of right femur <Jocelyn Restrepo PA-C - Last Filed: 06/30/22 21:41> Surgical History Surgical History: Surgical History No history of previous surgery <Jocelyn Restrepo PA-C - Last Filed: 06/30/22 21:41> Family History Family History: Family History Sibling Primary cancer of brain Mother Hypertension <Jocelyn Restrpeo PA-C - Last Filed: 06/30/22 21:41> Social History Social History: Social History Social History: The pat
[2022-06-30] MEDS: LEVALBUTEROL NEB 1.25 MG/3 ML INHALATION ×2 (18:11→20:55)
[2022-06-30] MEDS: IPRATROPIUM BR 0.02% INH SOLN 0.5 MG/2.5 ML VIAL INHALATION ×2 (18:11→20:55)
[2022-06-30 18:53] LABS: Hematocrit 37.4 % (37.0-47.0); Hemoglobin 12.4 g/dL (12.0-15.0); Mean Corpuscular HGB Conc 33.2 g/dl (32-36); Mean Corpuscular Hemoglobin 30.7 pg (26-34); Mean Corpuscular Volume 92.6 fl (80-100); Mean Platelet Volume 8.6 fl (7.4-10.4); Platelet Count Result 232 k/mm3 (150-375); Red Blood Count 4.04 M/mm3 (4.2-5.4); Red Cell Distribution Width 12.3 % (11.5-14.5); White Blood Count 20.1 K/mm3 (4.5-10.0)
[2022-06-30 19:03] LABS: Alanine Aminotransferase 23 U/L (6-35); Albumin Level 4.2 g/dL (3.5-5.1); Alkaline Phosphatase 119 U/L (38-126); Anion Gap 8 mmol/L (8-16); Aspartate Amino Transferase 41 U/L (14-36); Bilirubin,Total 0.5 mg/dL (0.2-1.3); Blood Urea Nitrogen 15 mg/dL (7-17); Calcium 8.3 mg/dL (8.4-10.2); Carbon Dioxide 24 mmol/L (22-30); Chloride 92 mmol/L (98-107); Estimated CRCL calculation 44 ml/min; Estimated Glomerular Filt Rate > 60; Glucose 150 mg/dL (65-110); Magnesium 2.1 mg/dL (1.6-2.3); Sodium 124 mmol/L (137-145)
[2022-06-30 19:12] LABS: NT Pro B Type Natriuretic Pept 2140 pg/mL (19.9-100)
[2022-06-30 19:22] LABS: Influenza A QL RT-PCR Negative (Negative); Influenza B QL RT-PCR Negative (Negative); SARS-CoV-2 RNA PCR Negative
[2022-06-30 19:25] LABS: Eosinophils Percent Manual 1 % (0-4); Lymphocytes Absolute Manual 8.64 K/mm3 (1.1-4.5); Monocytes Percent Manual 7 % (3-9); Neutrophils Percent Manual 49 % (46-73); Platelet Estimate Adequate (Adequate); Total Cells Counted 100
[2022-06-30 19:26] LABS: Schistocytes None Seen (NORMAL)
[2022-06-30 20:08] LABS: Appearance Urine Cloudy (Clear); Bacteria Urine 4+ /hpf; Bilirubin Urine Negative (Negative); Blood Urine Negative (Negative); Color Urine Dark Yellow (Yellow); Glucose Urine UA Negative (Negative); Ketones Urine Trace mg/dL (Negative); Leukocyte Esterase Ur 1+ LEU/UL (Negative); Nitrate Urine Positive (Negative); Non Pathogenic Casts 0-2; Protein Urine Trace mg/dL (Negative); RBC Urine 0-2 /hpf (0-2); Specific Grav Ur 1.026 (1.001-1.035); Squamous Epithelial Cell Urine Occasional /hpf (Few); WBC Urine 21-50 /hpf
--- NOTE | 2022-06-30 20:14 | PC.NURSE ---
Ambulated pt to bathroom and back to bed. Pt tolerated physical activity fairly. She became more SOB with activity. Ambulatory pulse ox obtained. Dropped to 90%. Jocelyn MARX notified.
[2022-06-30 20:30] LABS: Add Urine Microscopic? YES
--- NOTE | 2022-06-30 21:09 | PM.IMHP ---
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 Patient presented to emergency room due to wheezing, shortness of breath mainly on exertion, cough, chest congestion, for the last 2-3 days, patient denies any fevers, rigors, chills, no chest pain, no nausea, no vomiting, no abdominal pain. Preliminary workup was significant for CBC with a leukocyte count of 20,000, brain natriuretic peptide was 2480, sodium 124, patient tested negative for influenza type A, type B and COVID-19. A CT of the chest was reported as: FINDINGS: CHEST: Thoracic aorta: Ascending aortic ectasia. Moderate arch calcification. Lung parenchyma and airways: Bibasilar scar/atelectasis. Mild septal thickening in the lung bases. Multiple sub-6 mm pulmonary nodules. Thoracic inlet, axillae and chest wall: No thyroid or soft tissue mass. No axillary lymphadenopathy. Prominent bilateral axillary lymph nodes are not pathologic by size criteria Mediastinum: No mass. Enlarged subcarinal lymph node. Prominent bilateral hilar nodes. Dilated central pulmonary arteries as can be seen with pulmonary arterial hypertension. Heart and pericardium: Normal heart size. No pericardial effusion. Mitral and aortic valve calcifications. Coronary artery calcifications: Moderate. Pleura: No effusion or mass. Upper abdomen: No significant finding. Thoracic bones: No acute osseous finding in the chest. IMPRESSION: Mild interstitial pulmonary edema. Subcarinal lymphadenopathy with additional prominent mediastinal, bilateral hilar, and bilateral axillary lymph nodes. Multiple sub-6 mm pulmonary nodules, requiring no additional workup unless the patient is at high risk, in which case consider a follow-up low-dose noncontrast CT of the chest in 12 months. Review of Systems Review of Systems: Shortness of breath, cough, chest congestion. Constitutional: Constitutional: Denies chills, Reports fatigue, Denies fever(s), Reports lethargy, Denies malaise, Denies night sweats and Reports weakness Eyes: Eyes: Denies change in vision ENT: Denies dysphagia and Denies odynophagia Cardiovascular: Cardiovascular: Denies chest pain, Reports leg edema, Denies palpitations, Reports dyspnea and Reports dyspnea on exertion Respiratory: Respiratory: Denies change in phlegm color, Reports chest congestion, Reports cough, Denies excessive phlegm production, Reports dyspnea on exertion and Reports wheezing Gastrointestinal: Gastrointestinal: Denies abdominal pain, Denies dyspepsia, Denies heartburn, Denies diarrhea, Denies nausea and Denies vomiting Musculoskeletal: Musculoskeletal: Denies back pain, Denies arthralgias and Denies joint swelling Integumentary/Breasts: Skin/Breast: Denies rash Neurologic: Denies focal weakness and Denies Sensory deficit (Neuro) Psychiatric: Psychiatric: Reports no additional psychiatric complaints and Reports as per HPI Endocrine: Endocrine: Denies cold intolerance, Denies flushing, Denies heat intolerance, Denies polyphagia, Denies polydipsia and Denies palpitations Hematologic/Lymphatic: Hematologic/Lymphatic: Reports no additional hematologic/lymphatic complaints and Reports as per HPI Allergic/Immunologic: Allergic/Immunologic: Reports no additional allergic/immunologic complaints and Reports as per HPI PMFSH Past Medical History Medical History Aortic stenosis Severe aortic stenosis with a valve area of 0.9 cm2 on echocardiogram in October 2020. Chronic hyponatremia Chronic lymphocytic leukemia Diastolic dysfunction 11/05/20 Echo: EF 65-70%, mild LVH, grade I diastolic dysfunction (E/e' 1
[2022-06-30] MEDS: FUROSEMIDE INJ 40 MG/4 ML VIAL 20 MG IV PUSH (21:24)
[2022-06-30] MEDS: ACETAMINOPHEN 325 MG TABLET 650 MG PO (23:39)
[2022-07-01] VITALS (23 sets, daily range): BP systolic 124–142; BP diastolic 56–62; PULSE 75–113; RESP 16–18; TEMP 36.6–36.9; O2SAT 93–99
--- NOTE | 2022-07-01 | ECHO_ITS ---
Patient Info Name: Martha Martinez Age: 87 years : 1935 Gender: Female Ht: 61 in Wt: 119 lbs BSA: 1.53 m2 HR: 72 bpm BP: 133 / 62 mmHg Technical Quality: Good Exam Date: 07/01/2022 11:06 AM Exam Location: [facility] Patient Status: Outpatient Admit Date: 06/30/2022 Staff Ordering Physician: Gaetano Lombardi MD Search Coordinator: Eyal Reyes, RAVI, RT Attending Provider: Gaetano Lombardi MD Referring Physician: Harjit ANTUNEZ; Exam Type: CA echo doppler color flow Study Info Indications R01.1 - Cardiac murmur, unspecified R06.02 - Shortness of breath Complete two-dimensional, color flow and Doppler transthoracic echocardiogram is performed. Strain analysis performed. Summary 1. Complete two-dimensional, color flow and Doppler transthoracic echocardiogram is performed. 2. Left ventricular chamber dimension is normal. 3. Left ventricular systolic function is normal, estimated at 60-65%. 4. There is moderately increased left ventricular wall thickness. 5. The left ventricular diastolic function is grade I diastolic dysfunction. 6. Global longitudinal strain is normal at -18.4%. 7. Left atrial chamber dimension is moderately enlarged. 8. There is severe aortic valve sclerosis. 9. There is trace aortic valve regurgitation. 10. There is severe aortic valve stenosis with a peak velocity of 450 cm/s, mean gradient of 49 mmHg, and aortic valve area of 0.9 cm2. 11. The mitral valve has moderately calcified annulus. 12. There is mild mitral valve regurgitation. 13. There is mild tricuspid valve regurgitation. 14. Mild pulmonary hypertension, estimated pulmonary arterial systolic pressure is 45 mmHg. 15. There is trace pulmonic regurgitation. 16. Dilated inferior vena cava with >50% collapse upon inspiration consistent with elevated right atrial pressure, 10 mmHg. Left Ventricle Global longitudinal strain is normal at -18.4%. Tissue doppler E/e' is not performed. Left ventricular chamber dimension is normal. Left ventricular systolic function is normal, estimated at 60-65%. There is moderately increased left ventricular wall thickness. The left ventricular diastolic function is grade I diastolic dysfunction. Right Ventricle Right ventricular systolic function is normal and with normal TAPSE 2.2 cm. Right ventricular chamber dimension is normal. Left Atria Left atrial chamber dimension is moderately enlarged. Right Atria Right atrial chamber dimension is normal. Aortic Valve There is severe aortic valve stenosis with a peak velocity of 450 cm/s, mean gradient of 49 mmHg, and aortic valve area of 0.9 cm2. The aortic valve is probable trileaflet. There is severe aortic valve sclerosis. There is trace aortic valve regurgitation. Pulmonic Valve There is trace pulmonic regurgitation. Mitral Valve The mitral valve has moderately calcified annulus. There is no mitral valve stenosis. There is mild mitral valve regurgitation. Tricuspid Valve There is mild tricuspid valve regurgitation. Mild pulmonary hypertension, estimated pulmonary arterial systolic pressure is 45 mmHg. Pericardium/Pleural There is no pericardial effusion. Inferior Vena Cava Dilated inferior vena cava with >50% collapse upon inspiration consistent with elevated right atrial pressure, 10 mmHg. Aorta The aortic root size at the sinus of Valsalva is normal. Left Ventricular Outflow Tract Name
[2022-07-01] MEDS: SODIUM CHLORIDE 0.9% IV 1,000 ML 65 ML IV CONT (01:37)
[2022-07-01] MEDS: IPRATROPIUM BR 0.02% INH SOLN 0.5 MG/2.5 ML VIAL INHALATION ×5 (03:24→19:53)
[2022-07-01 05:26] LABS: Basophils Percent Auto 0.1 % (0.2-1.2); Eosinophils Percent Auto 0.1 % (0-4.4); Hematocrit 34.4 % (37.0-47.0); Hemoglobin 11.4 g/dL (12.0-15.0); Immature Granulocyte Absolute 0.07 K/mm3 (0.00-0.031); Immature Granulocyte Percent A 0.4 % (0-0.5); Lymphocytes Absolute Auto 7.14 K/mm3 (0.9-3.2); Mean Corpuscular HGB Conc 33.1 g/dl (32-36); Mean Corpuscular Hemoglobin 30.2 pg (26-34); Mean Platelet Volume 8.9 fl (7.4-10.4); Monocytes Absolute Auto 1.4 K/mm3 (0.1-0.6); Monocytes Percent Auto 8.2 % (2.6-8.5); Neutrophils Percent Auto 48.2 % (45.5-73.1); Platelet Count Result 223 k/mm3 (150-375); Red Blood Count 3.78 M/mm3 (4.2-5.4); White Blood Count 16.6 K/mm3 (4.5-10.0)
[2022-07-01 05:40] LABS: Anion Gap 8 mmol/L (8-16); Blood Urea Nitrogen 13 mg/dL (7-17); Calcium 8.1 mg/dL (8.4-10.2); Carbon Dioxide 27 mmol/L (22-30); Chloride 90 mmol/L (98-107); Estimated CRCL calculation 50 ml/min; Estimated Glomerular Filt Rate > 60; Glucose 113 mg/dL (65-110); Potassium 4.3 mmol/L (3.4-5.0); Sodium 125 mmol/L (137-145)
[2022-07-01 05:45] LABS: Platelet Estimate Adequate (Adequate)
[2022-07-01 05:46] LABS: Anisocytosis 1+ (NORMAL); Ovalocytes 1+ (NORMAL); Schistocytes None Seen (NORMAL)
[2022-07-01] MEDS: ASPIRIN 81 MG CHEWABLE TABLET PO (08:04)
[2022-07-01] MEDS: ACETAMINOPHEN 325 MG TABLET 650 MG PO ×2 (08:04→20:44)
[2022-07-01] MEDS: LOSARTAN POTASSIUM 25 MG TABLET PO (08:04)
[2022-07-01] MEDS: PRAVASTATIN SODIUM 20 MG TABLET PO (08:04)
[2022-07-01] MEDS: amLODIPine BESYLATE 5 MG TABLET 10 MG PO (08:04)
[2022-07-01] MEDS: FUROSEMIDE INJ 40 MG/4 ML VIAL IV PUSH ×2 (08:05→17:10)
--- NOTE | 2022-07-01 08:49 | PM.CNCAR ---
Assessment and Plan Assessment and plan (1) Shortness of Breath: Code(s): R06.02 - Shortness of breath Status: Acute Assessment and Plan: Due to interstitial edema likely from acute on chronic diastolic heart failure with contribution from aortic stenosis. Agree with diuresis with Lasix 20 mg IV BID. Spironolactone stopped due to hyponatremia. Monitor electrolytes and renal function. (2) Urinary tract infection: Code(s): N39.0 - Urinary tract infection, site not specified Status: Acute Assessment and Plan: On antibiotics as per hospitalist. (3) Chronic hyponatremia: Code(s): E87.1 - Hypo-osmolality and hyponatremia Status: Acute (4) Critical aortic valve stenosis: Code(s): I35.0 - Nonrheumatic aortic (valve) stenosis Status: Acute Assessment and Plan: Discussed results of prior echo showing critical . She wants to hold off on TAVR procedure until she has symptoms. Gave her options of JOSÉ LUIS and referral for TAVR, referral for TAVR, or medical therapy. She wants to think about it first and will let us know. Echo ordered. (5) HTN (hypertension): Code(s): I10 - Essential (primary) hypertension Status: Acute Assessment and Plan: Stable. (6) PAD (peripheral artery disease): Code(s): I73.9 - Peripheral vascular disease, unspecified Status: Acute Assessment and Plan: Stable. (7) LBBB (left bundle branch block): Code(s): I44.7 - Left bundle-branch block, unspecified Status: Acute (8) Dyslipidemia: Code(s): E78.5 - Hyperlipidemia, unspecified Status: Acute Assessment and Plan: On Pravastatin. History of Present Illness History of Present Illness Consult date/time: 07/01/22 08:49 Reason For Visit: hypoxemic respiratory failure Narrative: Patient is a 87 yr old woman who is my regular cardiology patient presents to ER with sob. ? She has a history of aortic stenosis, hypertension, dyslipidemia, PAD, LBBB. Reports sob had been progressively getting worse in last few days. Had right hip fracture and surgery after a fall. She can walk a mile now without any problems. Mod edema of left leg that previously resolved since she is using a pump daily. Denies chest pain, sob, orthopnea, PND, palpitations. Cardiovascular Procedures Sweat Box Attendant:: 10/28/21 Left leg vascular angioplasty done at [facility] per patient. Echo/MUGA:: 12/28/21 Echo: EF 60-65%, mild LVH, grade I diastolic dysfunction (E/e' 9), mod LAE, critical (CHANDLER 0.6 cm2, mean 49 mmHg), mild AI, mod MAC, mild MR, mod TR, trace PI, RVSP 53 mmHg. 11/05/20 Echo: EF 65-70%, mild LVH, grade I diastolic dysfunction (E/e' 16), mild LAE, severe (CHANDLER 0.9 cm2), mild AI/TR, RVSP 49 mmHg. 12/21/19 Echo: EF 60-65%, grade I diastolic dysfunction, mod LAE, severe (CHANDLER 0.8 cm2, mean 26 mmHg, peak velocity 4 m/s), mod MAC, mod TANYA, mild MR, mild-mod TR, RVSP 44 mmHg. JOSÉ LUIS (EF normal, mod LVH, mod LAE, mild-mod MR, mod MAC, mod and by planimetry 1.1 cm2, mild AI.) - 08/02/2018 Echo (EF 60-65%, mod LVH, grade I diastolic dysfunction (E/E' 18), mod LAE, mod MAC, mild MR, mod-severe (CHANDLER 0.8 cm2, mean 20 mmHg), mild AI/TR, RVSP 47 mmHg.) - 07/27/2018 Electrophysiology:: 04/09/21 EKG: Sinus rhythm with LBBB. EKG (Sinus rhythm, PVC, LBBB.) - 07/21/2018 Stress Tests:: 10/20/21 LANIE PAD with TBI right 0.27, left TBI 0.21, unable to occlude pedal pulses. 05/31/19 Venous duplex: Negative for DVT in left leg. MPI (Lexiscan myoview: Negative for ischemia.) - 08/02/2018 Arterial Duplex LE (Left 0.73 and right LANIE 0.37.? Right brachial 220 and left 261 mmHg.) - 07/12/2018 Venous Duplex (Negative for DVT of right leg.) - 07/12/2018 Review of Systems Review of Systems: All systems reviewed & are unremarkable except as noted in HPI and below Constitutional: Constitutional: Reports as per HPI, Denies chills and Denies fever(s) Cardiovascular: Cardiovascular: Reports as pe
--- NOTE | 2022-07-01 09:59 | PM.IMPN ---
Progress Note: A&P Assessment and Plan (1) Urinary tract infection: Code(s): N39.0 - Urinary tract infection, site not specified Status: Acute Assessment and Plan: WBC 20, UA +nitrates, leukocytes and 4+ bacteria with occasional epi cells. Started on Rocephin 1 gram IV in the ED. Continue for now. Leukocytosis improving. Adjust antibiotics per urine and blood cultures (2) Chronic hyponatremia: Code(s): E87.1 - Hypo-osmolality and hyponatremia Status: Chronic Assessment and Plan: H/o chronic hyponatremia and treated with salt tablets in the past. Sodium 124 on admission. No neurologic abnormality on exam. Hold spironolactone Trend sodium and monitor on diuretics. May be secondary to hypervolemia hyponatremia. Stop IV fluids d/t CHF exacerbation. (3) Diastolic dysfunction: Code(s): I51.89 - Other ill-defined heart diseases Status: Chronic Assessment and Plan: Acute exacerbation of chronic disease. BNP 2140 with interstitial edema on chest x-ray. Cardiology consulted. Continue furosemide IV BID. Monitor daily weights and strict I/Os. Echocardiogram shows normal LV systolic function, EF 60-65%, grade 1 diastolic dysfunction, moderate LVH, severe , mild MR/TR, and mild pulmonary hypertension. (4) Aortic stenosis: Code(s): I35.0 - Nonrheumatic aortic (valve) stenosis Status: Chronic Assessment and Plan: H/O severe aortic stenosis. Cardiology following and per notes, TAVR discussed and patient wants to think about this. (5) Peripheral arterial disease: Code(s): I73.9 - Peripheral vascular disease, unspecified Status: Chronic Assessment and Plan: Status post grafting. Continue aspirin (6) LBBB (left bundle branch block): Code(s): I44.7 - Left bundle-branch block, unspecified Status: Chronic Assessment and Plan: Unchanged (7) Chronic lymphocytic leukemia: Code(s): C91.10 - Chronic lymphocytic leukemia of B-cell type not having achieved remission Status: Acute Assessment and Plan: Prominent multiple lymph nodes in CT of the chest noted. Follow-up in the outpatient setting Plan CODE STATUS: FULL CODE Disposition: from home. Antibiotic: day 2 Time Spent With Patient Time: 30 minutes time spent with patient assessment, patient education, review of labs, vitals and nursing documentation. All questions answered to the best of my ability. Subjective Date/time seen: 07/01/22 09:59 Interval history: She reports persistent shortness of breath and coughing fit today. Sputum is yellow/green. She does not think LLE edema is worse than usual. No chest pain or palpitations. No known fevers, chills or sick contacts. She has taking salt tablets in the past for hyponatremia, however, she stopped taking them in November of last year. She denies diet changes or increased fast or salty foods. Review of Systems Review of Systems: All systems reviewed & are unremarkable except as noted in HPI and below Exam Narrative: General: No acute distress.? Older adult female lying in bed. Neuro/Psych: Awake, alert and oriented x4 with clear speech. Pleasant and cooperative. Neutral mood and affect. No focal deficits. Skin: fair, warm, dry and intact without rashes or lesions. No open wounds. Good turgor.? HEENT: Normocephalic. Sclera is non-icteric. Pupils equal and round. EOM intact. Oral mucosa pink and moist. Neck: Supple without lymphadenopathy. No JVD. Heart: S1 and S2 regular rate and rhythm. 3/6 systolic murmur auscultated in all monaco. No gallops or rubs. Chest: Respirations even and unlabored. Lung sounds with wheezing in all monaco. Abdomen: Soft, round, non-distended and non-tender to palpation.? Bowel sounds present in all 4 quadrants. No guarding or suprapubic tenderness. Extremities:?+1 edema LLE, no erythema or calf tenderness. Grossly normal ROM all extremities. Obje
--- NOTE | 2022-07-01 12:42 | PC.NURSE ---
On 07/01/22, the student, [Hector Dickerson], provided care and completed [facility] documentation on this patient. I have reviewed the student's documentation and agree with the findings.
--- NOTE | 2022-07-01 14:13 | PC.NURSE ---
On 07/01/22, the student, [Riri Crowell], provided care and completed [facility] documentation on this patient. I have reviewed the student's documentation and agree with the findings.
[2022-07-02] VITALS (24 sets, daily range): BP systolic 131–145; BP diastolic 54–60; PULSE 74–91; RESP 12–20; TEMP 36.7–36.8; O2SAT 84–98
[2022-07-02] MEDS: IPRATROPIUM BR 0.02% INH SOLN 0.5 MG/2.5 ML VIAL INHALATION ×6 (00:09→21:22)
[2022-07-02 06:03] LABS: Basophils Absolute Auto 0.1 K/mm3 (0.0-0.1); Basophils Percent Auto 0.4 % (0.2-1.2); Eosinophils Percent Auto 0.3 % (0-4.4); Hematocrit 34.8 % (37.0-47.0); Hemoglobin 11.5 g/dL (12.0-15.0); Immature Granulocyte Absolute 0.03 K/mm3 (0.00-0.031); Immature Granulocyte Percent A 0.3 % (0-0.5); Lymphocytes Percent Auto 45.3 % (18.3-44.2); Mean Corpuscular Hemoglobin 30.1 pg (26-34); Mean Corpuscular Volume 91.1 fl (80-100); Monocytes Absolute Auto 1.2 K/mm3 (0.1-0.6); Monocytes Percent Auto 10.2 % (2.6-8.5); Neutrophils Percent Auto 43.5 % (45.5-73.1); Platelet Count Result 217 k/mm3 (150-375); Red Blood Count 3.82 M/mm3 (4.2-5.4); White Blood Count 11.5 K/mm3 (4.5-10.0)
[2022-07-02 06:05] LABS: Anion Gap 4 mmol/L (8-16); Blood Urea Nitrogen 14 mg/dL (7-17); Calcium 8.2 mg/dL (8.4-10.2); Carbon Dioxide 33 mmol/L (22-30); Chloride 89 mmol/L (98-107); Estimated CRCL calculation 42 ml/min; Estimated Glomerular Filt Rate > 60; Glucose 115 mg/dL (65-110); Potassium 3.5 mmol/L (3.4-5.0); Sodium 126 mmol/L (137-145)
[2022-07-02 06:30] LABS: Hypochromasia 1+ (NORMAL); Platelet Estimate Adequate (Adequate); Schistocytes None Seen (NORMAL); Smudge Cells PRESENT
--- NOTE | 2022-07-02 07:54 | PM.PNCARD ---
Progress Note: A&P Assessment and Plan (1) Shortness of Breath: Code(s): R06.02 - Shortness of breath Status: Acute Assessment and Plan: Due to interstitial edema likely from acute on chronic diastolic heart failure with contribution from aortic stenosis. Agree with increasing diuresis with Lasix 40 mg IV BID. Spironolactone stopped due to hyponatremia. Monitor electrolytes and renal function. May need salt tablets. Monitor sodium level. (2) Urinary tract infection: Code(s): N39.0 - Urinary tract infection, site not specified Status: Acute Assessment and Plan: On antibiotics as per hospitalist. (3) Chronic hyponatremia: Code(s): E87.1 - Hypo-osmolality and hyponatremia Status: Chronic (4) Critical aortic valve stenosis: Code(s): I35.0 - Nonrheumatic aortic (valve) stenosis Status: Acute Assessment and Plan: 07/01/22 Echo: EF 60-65%, mod LVH, grade I diastolic dysfunction, mod LAE, severe (CHANDLER 0.9 cm2), mod MAC, mild MR/TR, RVSP 45 mmHg, trace PI. Discussed results of prior echo showing critical . She wants to hold off on TAVR procedure until she has symptoms. Gave her options of JOSÉ LUIS and referral for TAVR, referral for TAVR, or medical therapy. She wants to think about it first and will let us know. (5) HTN (hypertension): Code(s): I10 - Essential (primary) hypertension Status: Acute Assessment and Plan: Stable. (6) PAD (peripheral artery disease): Code(s): I73.9 - Peripheral vascular disease, unspecified Status: Acute Assessment and Plan: Stable. (7) LBBB (left bundle branch block): Code(s): I44.7 - Left bundle-branch block, unspecified Status: Chronic (8) Dyslipidemia: Code(s): E78.5 - Hyperlipidemia, unspecified Status: Acute Assessment and Plan: On Pravastatin. Subjective Date/time seen: 07/02/22 07:54 Interval history: She has sob. No chest pains. Exam Narrative: Patient is sitting semiupright position in stretcher Const: General: cooperative, comfortable, no acute distress, well developed, alert, awake, ill appearing acutely and average body habitus Nutritional Appearance: average body habitus Orientation/consciousness: patient oriented x3 HENMT: Head: normal to inspection, normocephalic and atraumatic Ears: hearing grossly normal bilaterally Face/Nose/Sinus: normal facial exam Face and sinus: normal facial exam Eyes: General: appearance normal, both eyes and all related structures Pupils: Equal, round and reactive pupils present EOM: EOMs intact bilaterally Neck: Neck: full ROM, no lymphadenopathy and no JVD Thyroid: thyroid normal Lymphatic: no lymphadenopathy noted Resp: Effort & Inspection: normal respiratory effort and able to speak in complete sentences Auscultation: crackles, rales, wheezes and diminished lung sounds Cardio: Jugular venous distension: no JVD Rate: regular rate Rhythm: regular rhythm Heart sounds: S1 normal heart sound present, S2 normal heart sound present and Murmur heart sound present (V/ systolic murmur RICS) continuous blowing, harsh and IV/ Peripheral pulses: dorsalis pedis present GI: GI Palp: No abdominal tenderness and Yes Soft to palpation : General: Yes deferred Skin: Rashes: no rashes Wounds: no wounds Neuro: General: patient oriented x3, CN's II-XI intact bilaterally and Unable to assess gait Cranial nerves: Yes CN's II-XII intact bilaterally and Yes Equal, round and reactive pupils present Cognition (Neuro): normal cognition Speech: normal speech Gait exam (Neuro): Unable to assess gait Motor exam (neuro): 5/5 motor strength present throughout Extrem: General: normal to inspection, full ROM, no joint enlargement and no pedal edema Right lower extremity: no edema Left lower extremity: no edema Objective Data Vital Signs Vital Signs: Vital Signs - 24 hr 07/01/22 07:59 07/01/22 08:20 07/01/22
[2022-07-02] MEDS: PRAVASTATIN SODIUM 20 MG TABLET PO (08:33)
[2022-07-02] MEDS: LOSARTAN POTASSIUM 25 MG TABLET PO (08:33)
[2022-07-02] MEDS: ASPIRIN 81 MG CHEWABLE TABLET PO (08:33)
[2022-07-02] MEDS: amLODIPine BESYLATE 5 MG TABLET 10 MG PO (08:33)
[2022-07-02] MEDS: FUROSEMIDE INJ 40 MG/4 ML VIAL IV PUSH ×2 (08:33→17:17)
[2022-07-02] MEDS: ENOXAPARIN 40 MG/0.4 ML SYRINGE SUB-Q (08:33)
--- NOTE | 2022-07-02 09:36 | PM.IMPN ---
Progress Note: A&P Assessment and Plan (1) Urinary tract infection: Code(s): N39.0 - Urinary tract infection, site not specified Status: Acute Assessment and Plan: WBC 20, UA +nitrates, leukocytes and 4+ bacteria with occasional epi cells. Started on Rocephin 1 gram IV in the ED. Continue for now. Leukocytosis continues to improve. Urine culture shows klebsiella oxytoca sensitive to Rocephin. Transition to oral cefdinir 300 mg PO BID x 5 days for total 7-day therapy. (2) Chronic hyponatremia: Code(s): E87.1 - Hypo-osmolality and hyponatremia Status: Chronic Assessment and Plan: H/o chronic hyponatremia and treated with salt tablets in the past. Sodium 124 on admission. No neurologic abnormality on exam. Hold spironolactone. Trend sodium and monitor on diuretics. May be secondary to hypervolemia hyponatremia. Sodium 126 today 07/02/22. Continue to monitor. (3) Diastolic dysfunction: Code(s): I51.89 - Other ill-defined heart diseases Status: Chronic Assessment and Plan: Acute exacerbation of chronic disease. BNP 2140 with interstitial edema on chest x-ray. Cardiology consulted and appreciate recommendations. Continue furosemide 40 mg IV BID. Monitor daily weights and strict I/Os. Unclear weight loss 06/30 weight 54-58 kg. Weight 54.1 kg today 07/02. Unable to quantify I/O for net loss as currently documented. 07/01 Echocardiogram shows normal LV systolic function, EF 60-65%, grade 1 diastolic dysfunction, moderate LVH, severe , mild MR/TR, and mild pulmonary hypertension. Potassium 3.5 today 07/02. Increase KCl 40 mEQ PO BID. Magnesium 2.0 (4) Aortic stenosis: Code(s): I35.0 - Nonrheumatic aortic (valve) stenosis Status: Chronic Assessment and Plan: H/O severe aortic stenosis. Cardiology following and per notes, TAVR discussed and patient wants to think about this. (5) Peripheral arterial disease: Code(s): I73.9 - Peripheral vascular disease, unspecified Status: Chronic Assessment and Plan: Status post grafting. Continue aspirin (6) LBBB (left bundle branch block): Code(s): I44.7 - Left bundle-branch block, unspecified Status: Chronic Assessment and Plan: Unchanged (7) Chronic lymphocytic leukemia: Code(s): C91.10 - Chronic lymphocytic leukemia of B-cell type not having achieved remission Status: Acute Assessment and Plan: Prominent multiple lymph nodes in CT of the chest noted. Follow-up in the outpatient setting Plan CODE STATUS: FULL CODE Disposition: from home. DC pending improved respiratory symptoms with diuresis. Antibiotic: day 3 of 7 Time Spent With Patient Time with patient: 15 - 25 minutes Subjective Date/time seen: 07/02/22 09:36 She is feeling a little better today and oxygen was able to be removed. She still feels short of breath with exertion. She had urinary hesitancy previously, but his is improved. No dysuria or flank pain. Her left leg edema is improving. Review of Systems Review of Systems: All systems reviewed & are unremarkable except as noted in HPI and below Exam Narrative: General: No acute distress.? Sitting up in bed. Neuro/Psych: Awake, alert and oriented x4 with clear speech. Pleasant. Neutral mood and affect. No focal deficits. Skin: fair, warm, dry and intact without rashes or lesions. No open wounds. HEENT: Sclera is non-icteric. Pupils equal and round. Oral mucosa moist. Neck:No JVD. Heart: S1 and S2 regular rate and rhythm. 3/6 systolic murmur auscultated in all monaco. No gallops or rubs. Chest: Respirations even and unlabored. Lung sounds with wheezing in all monaco. Abdomen: Soft, round, non-distended and non-tender to palpation.? Bowel sounds present in all 4 quadrants. No guarding or suprapubic tenderness. Extremities:?Trace edema LLE, no erythema or calf tenderness. Grossly normal ROM all extremities. Objective Data Vital Signs
[2022-07-02] MEDS: POTASSIUM CHLORIDE 20 MEQ TABLET.ER 40 MEQ PO ×2 (10:14→17:17)
--- NOTE | 2022-07-02 10:53 | PC.NURSE ---
On 07/02/22, the student, [Hector Dickerson], provided care and completed [facility] documentation on this patient. I have reviewed the student's documentation and agree with the findings.
--- NOTE | 2022-07-02 17:31 | PCRCNOTE ---
RT notified nurse of neb treatments not improving the ongoing wheezes patient has had throughout daytime. Pt is Q4 txs. Pt also has cornet device at bedside. Nurse notified MD of RT findings.
[2022-07-02] MEDS: CEFDINIR 300 MG CAPSULE PO (20:08)
[2022-07-02] MEDS: ACETAMINOPHEN 325 MG TABLET 650 MG PO (20:09)
[2022-07-03] VITALS (17 sets, daily range): BP systolic 129–134; BP diastolic 43–58; PULSE 71–105; RESP 14–22; TEMP 36.5–36.6; O2SAT 93–99
[2022-07-03] MEDS: IPRATROPIUM BR 0.02% INH SOLN 0.5 MG/2.5 ML VIAL INHALATION ×5 (00:56→19:46)
[2022-07-03 06:08] LABS: Anion Gap 0 mmol/L (8-16); Blood Urea Nitrogen 17 mg/dL (7-17); Calcium 8.3 mg/dL (8.4-10.2); Carbon Dioxide 32 mmol/L (22-30); Chloride 93 mmol/L (98-107); Estimated CRCL calculation 42 ml/min; Estimated Glomerular Filt Rate > 60; Glucose 100 mg/dL (65-110); Potassium 4.4 mmol/L (3.4-5.0); Sodium 125 mmol/L (137-145)
[2022-07-03] MEDS: methylPREDNISolone SOD SUCC 125 MG VIAL IV PUSH (06:10)
--- NOTE | 2022-07-03 07:40 | PM.PNCARD ---
Progress Note: A&P Assessment and Plan (1) Shortness of Breath: Code(s): R06.02 - Shortness of breath Status: Acute Assessment and Plan: Due to interstitial edema likely from acute on chronic diastolic heart failure with contribution from aortic stenosis. Agree with increasing diuresis with Lasix 40 mg IV BID. Spironolactone stopped due to hyponatremia. Monitor electrolytes and renal function. May need salt tablets. Monitor sodium level. Change Lasix IV to PO 40 mg BID. (2) Urinary tract infection: Code(s): N39.0 - Urinary tract infection, site not specified Status: Acute Assessment and Plan: On antibiotics as per hospitalist. (3) Chronic hyponatremia: Code(s): E87.1 - Hypo-osmolality and hyponatremia Status: Chronic (4) Critical aortic valve stenosis: Code(s): I35.0 - Nonrheumatic aortic (valve) stenosis Status: Acute Assessment and Plan: 07/01/22 Echo: EF 60-65%, mod LVH, grade I diastolic dysfunction, mod LAE, severe (CHANDLER 0.9 cm2), mod MAC, mild MR/TR, RVSP 45 mmHg, trace PI. Discussed results of prior echo showing critical . She wants to hold off on TAVR procedure until she has symptoms. Gave her options of JOSÉ LUIS and referral for TAVR, referral for TAVR, or medical therapy. She wants to think about it first and will let us know. She does not want any invasive treatment for at this time especially since it appears less stenotic than prior echo. (5) HTN (hypertension): Code(s): I10 - Essential (primary) hypertension Status: Acute Assessment and Plan: Stable. (6) PAD (peripheral artery disease): Code(s): I73.9 - Peripheral vascular disease, unspecified Status: Acute Assessment and Plan: Stable. (7) LBBB (left bundle branch block): Code(s): I44.7 - Left bundle-branch block, unspecified Status: Chronic (8) Dyslipidemia: Code(s): E78.5 - Hyperlipidemia, unspecified Status: Acute Assessment and Plan: On Pravastatin. Subjective Date/time seen: 07/03/22 07:40 Interval history: Denies sob at rest. No chest pains. Exam Narrative: Patient is sitting semiupright position in stretcher Const: General: cooperative, comfortable, no acute distress, well developed, alert, awake, ill appearing acutely and average body habitus Nutritional Appearance: average body habitus Orientation/consciousness: patient oriented x3 HENMT: Head: normal to inspection, normocephalic and atraumatic Ears: hearing grossly normal bilaterally Face/Nose/Sinus: normal facial exam Face and sinus: normal facial exam Eyes: General: appearance normal, both eyes and all related structures Pupils: Equal, round and reactive pupils present EOM: EOMs intact bilaterally Neck: Neck: full ROM, no lymphadenopathy and no JVD Thyroid: thyroid normal Lymphatic: no lymphadenopathy noted Resp: Effort & Inspection: normal respiratory effort and able to speak in complete sentences Auscultation: crackles, no rhonchi, no wheezes and diminished lung sounds Cardio: Jugular venous distension: no JVD Rate: regular rate Rhythm: regular rhythm Heart sounds: S1 normal heart sound present, S2 normal heart sound present and Murmur heart sound present (V/ systolic murmur RICS) continuous blowing, harsh and IV/ Peripheral pulses: dorsalis pedis present : General: Yes deferred Skin: Rashes: no rashes Wounds: no wounds Neuro: General: patient oriented x3, CN's II-XI intact bilaterally and Unable to assess gait Cranial nerves: Yes CN's II-XII intact bilaterally and Yes Equal, round and reactive pupils present Cognition (Neuro): normal cognition Speech: normal speech Gait exam (Neuro): Unable to assess gait Motor exam (neuro): 5/5 motor strength present throughout Extrem: General: normal to inspection, full ROM, no joint enlargement and no pedal edema Right lower extremity: no edema Left lower extremity: no edema Ob
[2022-07-03] MEDS: amLODIPine BESYLATE 5 MG TABLET 10 MG PO (08:44)
[2022-07-03] MEDS: CEFDINIR 300 MG CAPSULE PO ×2 (08:44→20:31)
[2022-07-03] MEDS: POTASSIUM CHLORIDE 20 MEQ TABLET.ER 40 MEQ PO ×2 (08:44→17:08)
[2022-07-03] MEDS: LOSARTAN POTASSIUM 25 MG TABLET PO (08:44)
[2022-07-03] MEDS: FUROSEMIDE 40 MG TABLET PO ×2 (08:44→17:08)
[2022-07-03] MEDS: PRAVASTATIN SODIUM 20 MG TABLET PO (08:44)
[2022-07-03] MEDS: ASPIRIN 81 MG CHEWABLE TABLET PO (08:45)
[2022-07-03] MEDS: ENOXAPARIN 40 MG/0.4 ML SYRINGE SUB-Q (08:45)
--- NOTE | 2022-07-03 10:24 | PM.IMPN ---
Progress Note: A&P Assessment and Plan (1) Urinary tract infection: Code(s): N39.0 - Urinary tract infection, site not specified Status: Acute Assessment and Plan: WBC 20, UA +nitrates, leukocytes and 4+ bacteria with occasional epi cells. Started on Rocephin 1 gram IV in the ED. Continue for now. Leukocytosis continues to improve. Urine culture shows klebsiella oxytoca sensitive to Rocephin. 07/02 Transitioned to oral cefdinir 300 mg PO BID x 5 days for total 7-day therapy (2) Chronic hyponatremia: Code(s): E87.1 - Hypo-osmolality and hyponatremia Status: Chronic Assessment and Plan: H/o chronic hyponatremia and treated with salt tablets in the past. Sodium 124 on admission. No neurologic abnormality on exam. Hold spironolactone. Trend sodium and monitor on diuretics. May be secondary to hypervolemia hyponatremia. Check urine sodium, urine potassium, urine urea, urine osmo, TSH, morning cortisol and ACTH. Consider sodium tablets PO if labs unremarkable. (3) Diastolic dysfunction: Code(s): I51.89 - Other ill-defined heart diseases Status: Chronic Assessment and Plan: Acute exacerbation of chronic disease. BNP 2140 with interstitial edema on chest x-ray. Cardiology consulted and appreciate recommendations. Continue furosemide 40 mg IV BID. Monitor daily weights and strict I/Os. Unclear weight loss 06/30 weight 54-58 kg. Weight 54.1 kg today 07/02. Unable to quantify I/O for net loss as currently documented. 07/01 Echocardiogram shows normal LV systolic function, EF 60-65%, grade 1 diastolic dysfunction, moderate LVH, severe , mild MR/TR, and mild pulmonary hypertension. Potassium 3.5 today 07/02. Increase KCl 40 mEQ PO BID. Magnesium 2.0 07/03 changed to lasix 40 mg PO BID (4) Aortic stenosis: Code(s): I35.0 - Nonrheumatic aortic (valve) stenosis Status: Chronic Assessment and Plan: H/O severe aortic stenosis. Cardiology following and per notes, TAVR discussed and patient wants to think about this. (5) Peripheral arterial disease: Code(s): I73.9 - Peripheral vascular disease, unspecified Status: Chronic Assessment and Plan: Status post grafting. Continue aspirin (6) LBBB (left bundle branch block): Code(s): I44.7 - Left bundle-branch block, unspecified Status: Chronic Assessment and Plan: Unchanged (7) Chronic lymphocytic leukemia: Code(s): C91.10 - Chronic lymphocytic leukemia of B-cell type not having achieved remission Status: Acute Assessment and Plan: Prominent multiple lymph nodes in CT of the chest noted. Follow-up in the outpatient setting (8) Acute bronchitis: Qualifiers: Bronchitis organism: unspecified organism Qualified Code(s): J20.9 - Acute bronchitis, unspecified Code(s): J20.9 - Acute bronchitis, unspecified Status: Acute Assessment and Plan: Patient has persistent wheezing noted on exam and hypervolemia improving CXR negative for pneumonia. She is afebrile. She endorses prior to admission shortness of breath, fatigue, malaise, sore throat and myalgias which suggests possible preceding URI/bronchitis. No known history of COPD and remote smoking history <1/2 pack per day for 10 years and quit in 1970s. Continue supportive care - mucinex BID, PRN tessalon perles, nebs Q6 hours, and PEP therapy. Check CRP, CBC, and procalcitonin Plan CODE STATUS: FULL CODE Disposition: from home. DC pending improved respiratory symptoms with diuresis. Antibiotic: day 4 of 7 Time Spent With Patient Time with patient: 25 - 35 minutes Subjective Date/time seen: 07/03/22 10:24 Patient found sitting up in the bed. She reports feeling a little bit better today than yesterday but still was some shortness of breath with ambulation, wheezing, and had oxygen reapplied overnight. She has a cough with persistent sputum and endorses nasal congestion. No
[2022-07-03] MEDS: polyethylene glycoL 3350 17 GM POWD.PACK PO (12:13)
[2022-07-03] MEDS: SALINE 0.65% NAS SOLN 44 ML BTL 1 SPRAY NASAL (12:15)
[2022-07-03 16:48] LABS: Potassium Urine Random 84.3 meq/L; Sodium Urine Random 16 meq/L
[2022-07-03 16:49] LABS: Urea Random Urine 534 MG/DL
[2022-07-03] MEDS: ACETAMINOPHEN 325 MG TABLET 650 MG PO (20:31)
[2022-07-03] MEDS: guaiFENesin 12 HR 600 MG TABCR PO (20:31)
[2022-07-03] MEDS: FLUTICASONE PROPIONATE 0.05% NA SPR 16 GM BTL (*BKC) 1 SPRAY NASAL (20:32)
[2022-07-04] VITALS (24 sets, daily range): BP systolic 111–140; BP diastolic 34–67; PULSE 70–91; RESP 16–20; TEMP 36.3–37; O2SAT 96–99
[2022-07-04] MEDS: IPRATROPIUM BR 0.02% INH SOLN 0.5 MG/2.5 ML VIAL INHALATION ×7 (00:04→20:02)
[2022-07-04 06:45] LABS: Basophils Percent Auto 0.1 % (0.2-1.2); Hematocrit 37.2 % (37.0-47.0); Hemoglobin 12.1 g/dL (12.0-15.0); Immature Granulocyte Absolute 0.06 K/mm3 (0.00-0.031); Immature Granulocyte Percent A 0.3 % (0-0.5); Lymphocytes Absolute Auto 7.86 K/mm3 (0.9-3.2); Lymphocytes Percent Auto 41.7 % (18.3-44.2); Mean Corpuscular HGB Conc 32.5 g/dl (32-36); Mean Corpuscular Hemoglobin 30.3 pg (26-34); Mean Platelet Volume 9.1 fl (7.4-10.4); Monocytes Absolute Auto 0.9 K/mm3 (0.1-0.6); Monocytes Percent Auto 4.6 % (2.6-8.5); Neutrophils Absolute Auto 10.1 K/mm3 (1.3-6.7); Neutrophils Percent Auto 53.3 % (45.5-73.1); Platelet Count Result 257 k/mm3 (150-375); Red Cell Distribution Width 11.9 % (11.5-14.5); White Blood Count 18.9 K/mm3 (4.5-10.0)
[2022-07-04 06:55] LABS: Anion Gap 3 mmol/L (8-16); Blood Urea Nitrogen 24 mg/dL (7-17); CRP 2.3 mg/dL (<1.0); Calcium 8.9 mg/dL (8.4-10.2); Carbon Dioxide 33 mmol/L (22-30); Chloride 92 mmol/L (98-107); Estimated CRCL calculation 42 ml/min; Estimated Glomerular Filt Rate > 60; Glucose 147 mg/dL (65-110); Potassium 4.4 mmol/L (3.4-5.0); Sodium 128 mmol/L (137-145)
[2022-07-04 07:06] LABS: Procalcitonin 0.1 ng/mL
[2022-07-04 07:19] LABS: Cortisol Random 4.35 ug/dL
[2022-07-04 07:20] LABS: Thyroid Stimulating Hormone Reflex 0.718 uIU/mL (0.465-4.68)
[2022-07-04] MEDS: POTASSIUM CHLORIDE 20 MEQ TABLET.ER 40 MEQ PO ×2 (08:23→18:19)
[2022-07-04] MEDS: amLODIPine BESYLATE 5 MG TABLET 10 MG PO (08:23)
[2022-07-04] MEDS: ASPIRIN 81 MG CHEWABLE TABLET PO (08:23)
[2022-07-04] MEDS: FUROSEMIDE 40 MG TABLET PO ×2 (08:23→18:19)
[2022-07-04] MEDS: guaiFENesin 12 HR 600 MG TABCR PO ×2 (08:23→20:40)
[2022-07-04] MEDS: PRAVASTATIN SODIUM 20 MG TABLET PO (08:23)
[2022-07-04] MEDS: CEFDINIR 300 MG CAPSULE PO (08:23)
[2022-07-04] MEDS: LOSARTAN POTASSIUM 25 MG TABLET PO (08:24)
[2022-07-04] MEDS: FLUTICASONE PROPIONATE 0.05% NA SPR 16 GM BTL (*BKC) 1 SPRAY NASAL ×2 (08:24→20:41)
[2022-07-04] MEDS: ENOXAPARIN 40 MG/0.4 ML SYRINGE SUB-Q (08:24)
--- NOTE | 2022-07-04 15:10 | PM.IMPN ---
Progress Note: A&P Assessment and Plan (1) Urinary tract infection: Code(s): N39.0 - Urinary tract infection, site not specified Status: Acute Assessment and Plan: WBC 20, UA +nitrates, leukocytes and 4+ bacteria with occasional epi cells. Started on Rocephin 1 gram IV in the ED. continued on admission. Leukocytosis continues to improve. Urine culture shows klebsiella oxytoca sensitive to Rocephin. 07/02 Transitioned to oral cefdinir 300 mg PO BID x 5 days for total 7-day therapy 07/04 giving increasing WBC and concerns for secondary bacterial infection patient switched to Augmentin 875/125 mg p.o. b.i.d. times 7-10 days, urinary culture does show sensitivity to Augmentin. (2) Chronic hyponatremia: Code(s): E87.1 - Hypo-osmolality and hyponatremia Status: Chronic Assessment and Plan: H/o chronic hyponatremia and treated with salt tablets in the past. Sodium 124 on admission. No neurologic abnormality on exam. Hold spironolactone. Trend sodium and monitor on diuretics. May be secondary to hypervolemia hyponatremia. urine sodium 16, urine potassium 84, urine urea 534, urine osmo pending TSH 0.718 and normal, morning cortisol 4.35 and normal, and ACTH pending. 07/04 sodium 128 and improved today. Patient is asymptomatic. Continue to monitor (3) Diastolic dysfunction: Code(s): I51.89 - Other ill-defined heart diseases Status: Chronic Assessment and Plan: Acute exacerbation of chronic disease. BNP 2140 with interstitial edema on chest x-ray. Cardiology consulted and appreciate recommendations. Continue furosemide 40 mg IV BID. Monitor daily weights and strict I/Os. Unclear weight loss as daily weights or fluctuant. Unable to quantify I/O for net loss as currently documented, but appears patient is at least-1 L since admission 07/01 Echocardiogram shows normal LV systolic function, EF 60-65%, grade 1 diastolic dysfunction, moderate LVH, severe , mild MR/TR, and mild pulmonary hypertension. Potassium 3.5 today 07/02. Increase KCl 40 mEQ PO BID. Magnesium 2.0 07/03 changed to lasix 40 mg PO BID Does not appear to be volume overloaded. 07/03 Chest x-ray without pulmonary edema. Continue oral diuretics as prescribed. 07/04 Check ambulating spO2 level on room air. (4) Aortic stenosis: Code(s): I35.0 - Nonrheumatic aortic (valve) stenosis Status: Chronic Assessment and Plan: H/O severe aortic stenosis. Cardiology following and per notes, TAVR discussed and patient wants to think about this. (5) Peripheral arterial disease: Code(s): I73.9 - Peripheral vascular disease, unspecified Status: Chronic Assessment and Plan: Status post grafting. Continue aspirin (6) LBBB (left bundle branch block): Code(s): I44.7 - Left bundle-branch block, unspecified Status: Chronic Assessment and Plan: To be aware. stable (7) Chronic lymphocytic leukemia: Code(s): C91.10 - Chronic lymphocytic leukemia of B-cell type not having achieved remission Status: Chronic Assessment and Plan: Prominent multiple lymph nodes in CT of the chest noted. Follow-up in the outpatient setting further monitoring (8) Acute bronchitis: Qualifiers: Bronchitis organism: unspecified organism Qualified Code(s): J20.9 - Acute bronchitis, unspecified Code(s): J20.9 - Acute bronchitis, unspecified Status: Acute Assessment and Plan: Patient has persistent wheezing noted on exam and hypervolemia improving 07/03 cXR negative for pneumonia or pulmonary edema. She endorses prior to admission shortness of breath, fatigue, malaise, sore throat and myalgias which suggests possible preceding URI/bronchitis. She has persistent sputum yellow/green and wheezing noted on assessment. No known history of COPD and remote smoking history <1/2 pack per day for 10 years and quit in 1970s. Continue supportive care - mucinex BID, [place]
--- NOTE | 2022-07-04 19:34 | PM.PNCARD ---
Progress Note: A&P Assessment and Plan (1) Shortness of Breath: Code(s): R06.02 - Shortness of breath Status: Acute Assessment and Plan: Due to interstitial edema likely from acute on chronic diastolic heart failure with contribution from aortic stenosis. Agree with increasing diuresis with Lasix 40 mg IV BID. Spironolactone stopped due to hyponatremia. Monitor electrolytes and renal function. May need salt tablets. Monitor sodium level. Changed Lasix IV to PO 40 mg BID. (2) Urinary tract infection: Code(s): N39.0 - Urinary tract infection, site not specified Status: Acute Assessment and Plan: On antibiotics as per hospitalist. (3) Chronic hyponatremia: Code(s): E87.1 - Hypo-osmolality and hyponatremia Status: Chronic (4) Critical aortic valve stenosis: Code(s): I35.0 - Nonrheumatic aortic (valve) stenosis Status: Acute Assessment and Plan: 07/01/22 Echo: EF 60-65%, mod LVH, grade I diastolic dysfunction, mod LAE, severe (CHANDLER 0.9 cm2), mod MAC, mild MR/TR, RVSP 45 mmHg, trace PI. Discussed results of prior echo showing critical . She wants to hold off on TAVR procedure until she has symptoms. Gave her options of [facility] and referral for TAVR, referral for TAVR, or medical therapy. She wants to think about it first and will let us know. She does not want any invasive treatment for at this time especially since it appears less stenotic than prior echo. (5) HTN (hypertension): Code(s): I10 - Essential (primary) hypertension Status: Acute Assessment and Plan: Stable. (6) PAD (peripheral artery disease): Code(s): I73.9 - Peripheral vascular disease, unspecified Status: Acute Assessment and Plan: Stable. (7) LBBB (left bundle branch block): Code(s): I44.7 - Left bundle-branch block, unspecified Status: Chronic (8) Dyslipidemia: Code(s): E78.5 - Hyperlipidemia, unspecified Status: Acute Assessment and Plan: On Pravastatin. Subjective Date/time seen: 07/04/22 19:34 Interval history: Denies sob at rest. No chest pains. She has a cough with sputum and thinks it's from nasal drainage. Exam Narrative: Patient is sitting semiupright position in stretcher Const: General: cooperative, comfortable, no acute distress, well developed, alert, awake, ill appearing acutely and average body habitus Nutritional Appearance: average body habitus Orientation/consciousness: patient oriented x3 HENMT: Head: normal to inspection, normocephalic and atraumatic Ears: hearing grossly normal bilaterally Face/Nose/Sinus: normal facial exam Face and sinus: normal facial exam Eyes: General: appearance normal, both eyes and all related structures Pupils: Equal, round and reactive pupils present EOM: EOMs intact bilaterally Neck: Neck: full ROM, no lymphadenopathy and no JVD Thyroid: thyroid normal Lymphatic: no lymphadenopathy noted Resp: Effort & Inspection: normal respiratory effort and able to speak in complete sentences Auscultation: no crackles, no rales, no rhonchi, wheezes and diminished lung sounds Cardio: Jugular venous distension: no JVD Rate: regular rate Rhythm: regular rhythm Heart sounds: S1 normal heart sound present, S2 normal heart sound present and Murmur heart sound present (V/ systolic murmur RICS) continuous blowing, harsh and IV/ Peripheral pulses: dorsalis pedis present : General: Yes deferred Skin: Rashes: no rashes Wounds: no wounds Neuro: General: patient oriented x3, CN's II-XI intact bilaterally and Unable to assess gait Cranial nerves: Yes CN's II-XII intact bilaterally and Yes Equal, round and reactive pupils present Cognition (Neuro): normal cognition Speech: normal speech Gait exam (Neuro): Unable to assess gait Motor exam (neuro): 5/5 motor strength present throughout Extrem: General: normal to inspection, full ROM, no joint enlargement and no pedal
[2022-07-04] MEDS: AMOXICILLIN/CLAVULANATE K 875-125 MG TAB 1 TABLET PO (20:40)
[2022-07-04] MEDS: ACETAMINOPHEN 325 MG TABLET 650 MG PO (20:40)
[2022-07-05] VITALS (18 sets, daily range): BP systolic 135–148; BP diastolic 52–60; PULSE 75–95; RESP 14–20; TEMP 36.5–36.9; O2SAT 92–97
[2022-07-05] MEDS: IPRATROPIUM BR 0.02% INH SOLN 0.5 MG/2.5 ML VIAL INHALATION ×4 (02:01→21:05)
[2022-07-05 06:32] LABS: Basophils Percent Auto 0.1 % (0.2-1.2); Eosinophils Absolute Auto 0.1 K/mm3 (0-0.3); Eosinophils Percent Auto 0.4 % (0-4.4); Hematocrit 40.2 % (37.0-47.0); Hemoglobin 13.1 g/dL (12.0-15.0); Immature Granulocyte Absolute 0.07 K/mm3 (0.00-0.031); Immature Granulocyte Percent A 0.4 % (0-0.5); Lymphocytes Absolute Auto 9.71 K/mm3 (0.9-3.2); Lymphocytes Percent Auto 58.5 % (18.3-44.2); Mean Corpuscular HGB Conc 32.6 g/dl (32-36); Mean Corpuscular Hemoglobin 30.5 pg (26-34); Mean Corpuscular Volume 93.7 fl (80-100); Mean Platelet Volume 8.9 fl (7.4-10.4); Monocytes Absolute Auto 0.4 K/mm3 (0.1-0.6); Monocytes Percent Auto 2.6 % (2.6-8.5); Neutrophils Absolute Auto 6.3 K/mm3 (1.3-6.7); Platelet Count Result 292 k/mm3 (150-375); Red Blood Count 4.29 M/mm3 (4.2-5.4); Red Cell Distribution Width 12.1 % (11.5-14.5); White Blood Count 16.6 K/mm3 (4.5-10.0)
[2022-07-05 06:46] LABS: Anion Gap 3 mmol/L (8-16); Blood Urea Nitrogen 25 mg/dL (7-17); Calcium 8.6 mg/dL (8.4-10.2); Carbon Dioxide 34 mmol/L (22-30); Chloride 93 mmol/L (98-107); Estimated CRCL calculation 37 ml/min; Estimated Glomerular Filt Rate > 60; Glucose 99 mg/dL (65-110); Potassium 4.3 mmol/L (3.4-5.0); Sodium 130 mmol/L (137-145)
--- NOTE | 2022-07-05 07:47 | PM.PNCARD ---
Progress Note: A&P Assessment and Plan (1) Shortness of Breath: Code(s): R06.02 - Shortness of breath Status: Acute Assessment and Plan: Due to interstitial edema likely from acute on chronic diastolic heart failure with contribution from aortic stenosis. Agree with increasing diuresis with Lasix 40 mg IV BID. Spironolactone stopped due to hyponatremia. Monitor electrolytes and renal function. May need salt tablets. Monitor sodium level. Sodium 130 this morning is better. Continue Furosemide 40 mg PO BID. If she gets discharged home, have her f/u with me in 1 week. (2) Urinary tract infection: Code(s): N39.0 - Urinary tract infection, site not specified Status: Acute Assessment and Plan: On antibiotics as per hospitalist. (3) Chronic hyponatremia: Code(s): E87.1 - Hypo-osmolality and hyponatremia Status: Chronic (4) Critical aortic valve stenosis: Code(s): I35.0 - Nonrheumatic aortic (valve) stenosis Status: Acute Assessment and Plan: 07/01/22 Echo: EF 60-65%, mod LVH, grade I diastolic dysfunction, mod LAE, severe (CHANDLER 0.9 cm2), mod MAC, mild MR/TR, RVSP 45 mmHg, trace PI. Discussed results of prior echo showing critical . She wants to hold off on TAVR procedure until she has symptoms. Gave her options of [facility] and referral for TAVR, referral for TAVR, or medical therapy. She wants to think about it first and will let us know. She does not want any invasive treatment for at this time especially since it appears less stenotic than prior echo. (5) HTN (hypertension): Code(s): I10 - Essential (primary) hypertension Status: Acute Assessment and Plan: Stable. (6) PAD (peripheral artery disease): Code(s): I73.9 - Peripheral vascular disease, unspecified Status: Acute Assessment and Plan: Stable. (7) LBBB (left bundle branch block): Code(s): I44.7 - Left bundle-branch block, unspecified Status: Chronic (8) Dyslipidemia: Code(s): E78.5 - Hyperlipidemia, unspecified Status: Acute Assessment and Plan: On Pravastatin. Subjective Date/time seen: 07/05/22 07:47 Interval history: Denies sob at rest. No chest pains. She has a cough with sputum and thinks it's from nasal drainage. Exam Narrative: Patient is sitting semiupright position in stretcher Const: General: cooperative, comfortable, no acute distress, well developed, alert, awake, ill appearing acutely and average body habitus Nutritional Appearance: average body habitus Orientation/consciousness: patient oriented x3 HENMT: Head: normal to inspection, normocephalic and atraumatic Ears: hearing grossly normal bilaterally Face/Nose/Sinus: normal facial exam Face and sinus: normal facial exam Eyes: General: appearance normal, both eyes and all related structures Pupils: Equal, round and reactive pupils present EOM: EOMs intact bilaterally Neck: Neck: full ROM, no lymphadenopathy and no JVD Thyroid: thyroid normal Lymphatic: no lymphadenopathy noted Resp: Effort & Inspection: normal respiratory effort and able to speak in complete sentences Auscultation: no crackles, no rales, no rhonchi, no wheezes and diminished lung sounds Cardio: Jugular venous distension: no JVD Rate: regular rate Rhythm: regular rhythm Heart sounds: S1 normal heart sound present, S2 normal heart sound present and Murmur heart sound present (V/ systolic murmur RICS) continuous blowing, harsh and IV/ Peripheral pulses: dorsalis pedis present : General: Yes deferred Skin: Rashes: no rashes Wounds: no wounds Neuro: General: patient oriented x3, CN's II-XI intact bilaterally and Unable to assess gait Cranial nerves: Yes CN's II-XII intact bilaterally and Yes Equal, round and reactive pupils present Cognition (Neuro): normal cognition Speech: normal speech Gait exam (Neuro): Unable to assess gait Motor exam (neuro): 5/5 motor strength prese
[2022-07-05] MEDS: POTASSIUM CHLORIDE 20 MEQ TABLET.ER 40 MEQ PO ×2 (09:35→17:38)
[2022-07-05] MEDS: ASPIRIN 81 MG CHEWABLE TABLET PO (09:35)
[2022-07-05] MEDS: AMOXICILLIN/CLAVULANATE K 875-125 MG TAB 1 TABLET PO ×2 (09:35→20:27)
[2022-07-05] MEDS: FUROSEMIDE 40 MG TABLET PO ×2 (09:35→17:38)
[2022-07-05] MEDS: PRAVASTATIN SODIUM 20 MG TABLET PO (09:35)
[2022-07-05] MEDS: ENOXAPARIN 40 MG/0.4 ML SYRINGE SUB-Q (09:36)
[2022-07-05] MEDS: FLUTICASONE PROPIONATE 0.05% NA SPR 16 GM BTL (*BKC) 1 SPRAY NASAL ×2 (09:36→20:27)
[2022-07-05] MEDS: guaiFENesin 12 HR 600 MG TABCR PO ×2 (09:36→20:27)
[2022-07-05] MEDS: LOSARTAN POTASSIUM 25 MG TABLET PO (09:36)
[2022-07-05] MEDS: polyethylene glycoL 3350 17 GM POWD.PACK PO (09:56)
[2022-07-05] MEDS: amLODIPine BESYLATE 5 MG TABLET 10 MG PO (09:56)
[2022-07-05] MEDS: BENZONATATE 100 MG CAPSULE PO ×2 (10:08→17:42)
--- NOTE | 2022-07-05 12:18 | PM.IMPN ---
Progress Note: A&P Assessment and Plan (1) Urinary tract infection: Code(s): N39.0 - Urinary tract infection, site not specified Status: Acute Assessment and Plan: WBC 20, UA +nitrates, leukocytes and 4+ bacteria with occasional epi cells. Started on Rocephin 1 gram IV in the ED. continued on admission. Leukocytosis continues to improve. Urine culture shows klebsiella oxytoca sensitive to Rocephin. 07/02 Transitioned to oral cefdinir 300 mg PO BID x 5 days for total 7-day therapy 07/04 giving increasing WBC and concerns for secondary bacterial infection patient switched to Augmentin 875/125 mg p.o. b.i.d. times 7-10 days, urinary culture does show sensitivity to Augmentin. 07/05 WBC down to 16.6 possible d/c tomorrow if white count continues to drop. (2) Chronic hyponatremia: Code(s): E87.1 - Hypo-osmolality and hyponatremia Status: Chronic Assessment and Plan: H/o chronic hyponatremia and treated with salt tablets in the past. Sodium 124 on admission. No neurologic abnormality on exam. Hold spironolactone. Trend sodium and monitor on diuretics. May be secondary to hypervolemia hyponatremia. urine sodium 16, urine potassium 84, urine urea 534, urine osmo pending TSH 0.718 and normal, morning cortisol 4.35 and normal, and ACTH pending. 07/05 sodium 130 and improved today. Patient is asymptomatic. Continue to monitor (3) Diastolic dysfunction: Code(s): I51.89 - Other ill-defined heart diseases Status: Chronic Assessment and Plan: Acute exacerbation of chronic disease. BNP 2140 with interstitial edema on chest x-ray. Cardiology consulted and appreciate recommendations. Continue furosemide 40 mg IV BID. Monitor daily weights and strict I/Os. Unclear weight loss as daily weights or fluctuant. Unable to quantify I/O for net loss as currently documented, but appears patient is at least-1 L since admission 07/01 Echocardiogram shows normal LV systolic function, EF 60-65%, grade 1 diastolic dysfunction, moderate LVH, severe , mild MR/TR, and mild pulmonary hypertension. Potassium 3.5 today 07/02. Increase KCl 40 mEQ PO BID. Magnesium 2.0 07/03 changed to lasix 40 mg PO BID Does not appear to be volume overloaded. 07/03 Chest x-ray without pulmonary edema. Continue oral diuretics as prescribed. 07/04 Check ambulating spO2 level on room air. (4) Aortic stenosis: Code(s): I35.0 - Nonrheumatic aortic (valve) stenosis Status: Chronic Assessment and Plan: H/O severe aortic stenosis. Cardiology following and per notes, TAVR discussed and patient wants to think about this. (5) Peripheral arterial disease: Code(s): I73.9 - Peripheral vascular disease, unspecified Status: Chronic Assessment and Plan: Status post grafting. Continue aspirin (6) LBBB (left bundle branch block): Code(s): I44.7 - Left bundle-branch block, unspecified Status: Chronic Assessment and Plan: To be aware. stable (7) Chronic lymphocytic leukemia: Code(s): C91.10 - Chronic lymphocytic leukemia of B-cell type not having achieved remission Status: Chronic Assessment and Plan: Prominent multiple lymph nodes in CT of the chest noted. Follow-up in the outpatient setting further monitoring (8) Acute bronchitis: Qualifiers: Bronchitis organism: unspecified organism Qualified Code(s): J20.9 - Acute bronchitis, unspecified Code(s): J20.9 - Acute bronchitis, unspecified Status: Acute Assessment and Plan: Patient has persistent wheezing noted on exam and hypervolemia improving 07/03 cXR negative for pneumonia or pulmonary edema. She endorses prior to admission shortness of breath, fatigue, malaise, sore throat and myalgias which suggests possible preceding URI/bronchitis. She has persistent sputum yellow/green and wheezing noted on assessment. No known history of
--- NOTE | 2022-07-05 13:22 | PCCCNOTE ---
On 07/05/22, the student, [Josie Elias ], provided care and completed [facility] documentation on this patient. I have reviewed the student's documentation and agree with the findings.
[2022-07-05] MEDS: ACETAMINOPHEN 325 MG TABLET 650 MG PO (20:27)
[2022-07-05] MEDS: LEVALBUTEROL NEB 1.25 MG/3 ML INHALATION (21:04)
[2022-07-06] VITALS (14 sets, daily range): BP systolic 121–130; BP diastolic 49–60; PULSE 76–95; RESP 14–18; TEMP 36.6–36.7; O2SAT 92–98
[2022-07-06] MEDS: LEVALBUTEROL NEB 1.25 MG/3 ML INHALATION ×3 (02:57→13:31)
[2022-07-06] MEDS: IPRATROPIUM BR 0.02% INH SOLN 0.5 MG/2.5 ML VIAL INHALATION ×3 (02:58→13:31)
[2022-07-06] MEDS: ACETAMINOPHEN 325 MG TABLET 650 MG PO (05:11)
[2022-07-06 05:48] LABS: Hematocrit 41.5 % (37.0-47.0); Hemoglobin 13.7 g/dL (12.0-15.0); Mean Corpuscular Hemoglobin 30.7 pg (26-34); Mean Platelet Volume 8.9 fl (7.4-10.4); Platelet Count Result 296 k/mm3 (150-375); Red Blood Count 4.46 M/mm3 (4.2-5.4); Red Cell Distribution Width 12.1 % (11.5-14.5); White Blood Count 17.2 K/mm3 (4.5-10.0)
[2022-07-06 05:52] LABS: Alanine Aminotransferase 20 U/L (6-35); Albumin Level 3.6 g/dL (3.5-5.1); Alkaline Phosphatase 92 U/L (38-126); Anion Gap 1 mmol/L (8-16); Aspartate Amino Transferase 22 U/L (14-36); Bilirubin,Total 0.6 mg/dL (0.2-1.3); Blood Urea Nitrogen 22 mg/dL (7-17); Calcium 8.5 mg/dL (8.4-10.2); Carbon Dioxide 36 mmol/L (22-30); Chloride 92 mmol/L (98-107); Estimated CRCL calculation 37 ml/min; Estimated Glomerular Filt Rate > 60; Glucose 113 mg/dL (65-110); Potassium 4.3 mmol/L (3.4-5.0); Sodium 129 mmol/L (137-145)
[2022-07-06 06:15] LABS: Eosinophils Absolute Manual 0.17 K/mm3 (0.02-0.5); Eosinophils Percent Manual 1 % (0-4); Lymphocytes Absolute Manual 5.33 K/mm3 (1.1-4.5); Monocytes Absolute Manual 0.51 K/mm3 (0.1-0.90); Monocytes Percent Manual 3 % (3-9); Neutrophils Percent Manual 65 % (46-73); Ovalocytes 1+ (NORMAL); Platelet Estimate Adequate (Adequate); Schistocytes None Seen (NORMAL); Smudge Cells FEW; Total Cells Counted 100
--- NOTE | 2022-07-06 08:14 | PM.PNCARD ---
Progress Note: A&P Assessment and Plan (1) Shortness of Breath: Code(s): R06.02 - Shortness of breath Status: Acute Assessment and Plan: Due to interstitial edema likely from acute on chronic diastolic heart failure with contribution from aortic stenosis. Agree with increasing diuresis with Lasix 40 mg IV BID. Spironolactone stopped due to hyponatremia. Monitor electrolytes and renal function. May need salt tablets. Monitor sodium level. Sodium 129 this morning. Continue Furosemide 40 mg PO BID. If she gets discharged home, have her f/u with me in 1 week. (2) Urinary tract infection: Code(s): N39.0 - Urinary tract infection, site not specified Status: Acute Assessment and Plan: On antibiotics as per hospitalist. WBC is 17,000. (3) Chronic hyponatremia: Code(s): E87.1 - Hypo-osmolality and hyponatremia Status: Chronic (4) Critical aortic valve stenosis: Code(s): I35.0 - Nonrheumatic aortic (valve) stenosis Status: Acute Assessment and Plan: 07/01/22 Echo: EF 60-65%, mod LVH, grade I diastolic dysfunction, mod LAE, severe (CHANDLER 0.9 cm2), mod MAC, mild MR/TR, RVSP 45 mmHg, trace PI. Discussed results of prior echo showing critical . She wants to hold off on TAVR procedure until she has symptoms. Gave her options of [facility] and referral for TAVR, referral for TAVR, or medical therapy. She wants to think about it first and will let us know. She does not want any invasive treatment for at this time especially since it appears less stenotic than prior echo. (5) HTN (hypertension): Code(s): I10 - Essential (primary) hypertension Status: Acute Assessment and Plan: Stable. (6) PAD (peripheral artery disease): Code(s): I73.9 - Peripheral vascular disease, unspecified Status: Acute Assessment and Plan: Stable. (7) LBBB (left bundle branch block): Code(s): I44.7 - Left bundle-branch block, unspecified Status: Chronic (8) Dyslipidemia: Code(s): E78.5 - Hyperlipidemia, unspecified Status: Acute Assessment and Plan: On Pravastatin. Subjective Date/time seen: 07/06/22 08:14 Interval history: Denies sob at rest. No chest pains. She has a cough with sputum and thinks it's from nasal drainage. Exam Narrative: Patient is sitting semiupright position in stretcher Const: General: cooperative, comfortable, no acute distress, well developed, alert, awake, ill appearing acutely and average body habitus Nutritional Appearance: average body habitus Orientation/consciousness: patient oriented x3 HENMT: Head: normal to inspection, normocephalic and atraumatic Ears: hearing grossly normal bilaterally Face/Nose/Sinus: normal facial exam Face and sinus: normal facial exam Eyes: General: appearance normal, both eyes and all related structures Pupils: Equal, round and reactive pupils present EOM: EOMs intact bilaterally Neck: Neck: full ROM, no lymphadenopathy and no JVD Thyroid: thyroid normal Lymphatic: no lymphadenopathy noted Resp: Effort & Inspection: normal respiratory effort and able to speak in complete sentences Auscultation: no crackles, no rales, no rhonchi, wheezes (Mild end-expiratory wheeze) and diminished lung sounds Cardio: Jugular venous distension: no JVD Rate: regular rate Rhythm: regular rhythm Heart sounds: S1 normal heart sound present, S2 normal heart sound present and Murmur heart sound present (V/ systolic murmur RICS) continuous blowing, harsh and IV/ Peripheral pulses: dorsalis pedis present : General: Yes deferred Skin: Rashes: no rashes Wounds: no wounds Neuro: General: patient oriented x3, CN's II-XI intact bilaterally and Unable to assess gait Cranial nerves: Yes CN's II-XII intact bilaterally and Yes Equal, round and reactive pupils present Cognition (Neuro): normal cognition Speech: normal speech Gait exam (Neuro): Unable to assess gait Motor exam (n
[2022-07-06] MEDS: FUROSEMIDE 40 MG TABLET PO (08:35)
[2022-07-06] MEDS: ENOXAPARIN 40 MG/0.4 ML SYRINGE SUB-Q (08:35)
[2022-07-06] MEDS: PRAVASTATIN SODIUM 20 MG TABLET PO (08:35)
[2022-07-06] MEDS: ASPIRIN 81 MG CHEWABLE TABLET PO (08:35)
[2022-07-06] MEDS: guaiFENesin 12 HR 600 MG TABCR PO (08:35)
[2022-07-06] MEDS: AMOXICILLIN/CLAVULANATE K 875-125 MG TAB 1 TABLET PO (08:35)
[2022-07-06] MEDS: FLUTICASONE PROPIONATE 0.05% NA SPR 16 GM BTL (*BKC) 1 SPRAY NASAL (08:35)
[2022-07-06] MEDS: POTASSIUM CHLORIDE 20 MEQ TABLET.ER 40 MEQ PO (08:35)
[2022-07-06] MEDS: LOSARTAN POTASSIUM 25 MG TABLET PO (08:35)
[2022-07-06] MEDS: BENZONATATE 100 MG CAPSULE PO ×2 (08:40→14:05)
[2022-07-06] MEDS: amLODIPine BESYLATE 5 MG TABLET 10 MG PO (08:44)
[2022-07-06 14:27] LABS: CRP 1.4 mg/dL (<1.0)
--- NOTE | 2022-07-06 14:39 | PM.DS ---
DS: Admitting Diagnosis Discharge Date 07/06/2022 Admitting Diagnosis Urinary tract infection? Chronic hyponatremia Diastolic dysfunction Aortic stenosis LBBB (left bundle branch block) Chronic lymphocytic leukemia DS: Discharge Diagnosis Discharge Diagnosis (1) Urinary tract infection: Code(s): N39.0 - Urinary tract infection, site not specified Status: Resolved Assessment and Plan: On admission: WBC 20, UA +nitrates, leukocytes and 4+ bacteria with occasional epi cells. Started on Rocephin 1 gram IV in the ED and continued on admission. Urine culture shows klebsiella oxytoca sensitive to Rocephin. 07/02 Transitioned to oral cefdinir 300 mg PO BID x 5 days for total 7-day therapy 07/04 giving increasing WBC and concerns for secondary bacterial upper respiratory infection patient switched to Augmentin 875/125 mg p.o. b.i.d. times 7-10 days, urinary culture does show sensitivity to Augmentin. Urinary symptoms resolved. (2) Chronic hyponatremia: Code(s): E87.1 - Hypo-osmolality and hyponatremia Status: Chronic Assessment and Plan: H/o chronic hyponatremia and treated with salt tablets in the past. Sodium 124 on admission. No neurologic abnormality on exam. Hold spironolactone. Trend sodium and monitor on diuretics. May be secondary to hypervolemia hyponatremia. urine sodium 16, urine potassium 84, urine urea 534, urine osmo pending TSH 0.718 and normal, morning cortisol 4.35 and normal, and ACTH pending. 07/05 sodium 129-130. Patient is asymptomatic. (3) Diastolic dysfunction: Code(s): I51.89 - Other ill-defined heart diseases Status: Chronic Assessment and Plan: Acute exacerbation of chronic disease. BNP 2140 with interstitial edema on chest x-ray. Cardiology consulted and appreciate recommendations. Treated with furosemide 40 mg IV BID. Monitored daily weights and strict I/Os. Unclear weight loss as daily weights are fluctuant. Unable to quantify I/O for net loss as currently documented, but appears patient is at least-1 L since admission 07/01 Echocardiogram shows normal LV systolic function, EF 60-65%, grade 1 diastolic dysfunction, moderate LVH, severe , mild MR/TR, and mild pulmonary hypertension. Potassium 3.5 today 07/02. Increase KCl 40 mEQ PO BID. Magnesium 2.0 07/03 changed to lasix 40 mg PO BID Does not appear to be volume overloaded. 07/03 Chest x-ray without pulmonary edema. Continue oral diuretics as prescribed. Stable. (4) Aortic stenosis: Code(s): I35.0 - Nonrheumatic aortic (valve) stenosis Status: Chronic Assessment and Plan: H/O severe aortic stenosis. Cardiology following and per notes, TAVR discussed and patient defering at this time. (5) Peripheral arterial disease: Code(s): I73.9 - Peripheral vascular disease, unspecified Status: Chronic Assessment and Plan: Status post grafting. Continue aspirin (6) LBBB (left bundle branch block): Code(s): I44.7 - Left bundle-branch block, unspecified Status: Chronic Assessment and Plan: To be aware. stable (7) Chronic lymphocytic leukemia: Code(s): C91.10 - Chronic lymphocytic leukemia of B-cell type not having achieved remission Status: Chronic Assessment and Plan: Prominent multiple lymph nodes in CT of the chest noted. Follow-up in the outpatient setting further monitoring WBC fluctuant and 17 on discharge. (8) Acute bronchitis: Qualifiers: Bronchitis organism: unspecified organism Qualified Code(s): J20.9 - Acute bronchitis, unspecified Code(s): J20.9 - Acute bronchitis, unspecified Status: Acute Assessment and Plan: Patient has persistent wheezing noted on exam and hypervolemia improving 07/03 cXR negative for pneumonia or pulmonary edema. She endorsed prior to admission shortness of breath, fatigue, malaise, sore throat and myalgias which suggests possible preceding U
[2022-07-07 20:15] LABS: Osmolality, Urine 390 mOsm/kg (50-1200)
[2022-07-08 19:17] LABS: Adrenocorticotropic Hormone <5 pg/mL (6-50)
== END 2022-07-06 16:20 | disposition home or self-care (01) | DRG 291 ==
LOC: ANHED 21:15 → ANH2MED 21:41
PROVIDERS: Internal Medicine Critical Care Medicine; Admitting Provider Internal Medicine; Emergency Provider Physician Assistant; PCP Emergency Medicine; Visit Provider Nurse Practitioner Family
DX: I11.0 Hypertensive heart disease with heart failure (principal); I50.33 Acute on chronic diastolic (congestive) heart failure; N39.0 Urinary tract infection, site not specified; C91.10 Chronic lymphocytic leukemia of B-cell type not having achieved remission; E87.1 Hypo-osmolality and hyponatremia; J20.9 Acute bronchitis, unspecified; I44.7 Left bundle-branch block, unspecified; I35.0 Nonrheumatic aortic (valve) stenosis; I73.9 Peripheral vascular disease, unspecified; E78.5 Hyperlipidemia, unspecified; E78.2 Mixed hyperlipidemia; B96.89 Other specified bacterial agents as the cause of diseases classified elsewhere; Z20.822 Contact with and (suspected) exposure to COVID-19; Z87.891 Personal history of nicotine dependence; Z79.82 Long term (current) use of aspirin
CPT/HCPCS: 36415; 71046; 71260; 80048; 80053; 81001; 82024; 82533; 83735; 83880; 83935; 84133; 84145; 84300; 84443; 84540; 85025; 86140; 87040; 87077; 87086; 87186; 87636; 93005; 93306; 94640; 94667; 94668; 96365; 96375; 96376; 99213; 99285; A9270; G0378; G0463; J0696; J1650; J1940; J2930; J7030; Q9967

== ENCOUNTER 2023-06-13 07:22 | Outpatient (CLI) | payer MEDICARE, SELFPAY ==
--- NOTE | 2023-06-13 07:39 | ECHO_ITS ---
Patient Info Name: Martha Martinez Age: 88 years : 1935 Gender: Female Ht: 61 in Wt: 120 lbs BSA: 1.54 m2 HR: 74 bpm BP: 155 / 75 mmHg Technical Quality: Good Exam Date: 06/13/2023 7:42 AM Exam Location: Echo Lab Patient Status: Outpatient Admit Date: 06/13/2023 Staff Ordering Physician: Danis Urena DO Ophthalmology Assistant: Nory Kat RDCS Attending Provider: Danis Urena DO Referring Physician: Romel STERLING; Exam Type: CA echo doppler color flow Study Info Indications I35.0 - Nonrheumatic aortic (valve) stenosis Complete two-dimensional, color flow and Doppler transthoracic echocardiogram is performed. Summary 1. Complete two-dimensional, color flow and Doppler transthoracic echocardiogram is performed. 2. Left ventricular chamber dimension is normal. 3. Left ventricular systolic function is normal, estimated at 60-65%. 4. There is mild concentric increased left ventricular wall thickness. 5. The left ventricular diastolic function is grade I diastolic dysfunction. 6. E/e' 23 is significantly elevated. 7. Global longitudinal strain is normal at -17.7%. 8. Left atrial chamber dimension is severely enlarged. 9. There is severe aortic valve sclerosis. 10. There is severe aortic valve stenosis with a peak velocity of 542 cm/s, mean gradient of 54 mmHg, and aortic valve area of 0.7 cm2. 11. There is trace aortic valve regurgitation. 12. The mitral valve has severely calcified annulus. 13. There is mild mitral valve regurgitation. 14. There is mild to moderate tricuspid valve regurgitation. 15. Severe pulmonary hypertension, estimated pulmonary arterial systolic pressure is 61 mmHg. 16. There is trace pulmonic regurgitation. Left Ventricle E/e' 23 is significantly elevated. Global longitudinal strain is normal at -17.7%. Left ventricular chamber dimension is normal. Left ventricular systolic function is normal, estimated at 60-65%. There is mild concentric increased left ventricular wall thickness. The left ventricular diastolic function is grade I diastolic dysfunction. Right Ventricle Right ventricular systolic function is normal and with normal TAPSE 2.2 cm. Right ventricular chamber dimension is normal. Left Atria Left atrial chamber dimension is severely enlarged. Right Atria Right atrial chamber dimension is normal. Aortic Valve The aortic valve is trileaflet. There is severe aortic valve sclerosis. There is severe aortic valve stenosis with a peak velocity of 542 cm/s, mean gradient of 54 mmHg, and aortic valve area of 0.7 cm2. There is trace aortic valve regurgitation. Pulmonic Valve There is trace pulmonic regurgitation. Mitral Valve The mitral valve has severely calcified annulus. There is no mitral valve stenosis. There is mild mitral valve regurgitation. Tricuspid Valve There is mild to moderate tricuspid valve regurgitation. Severe pulmonary hypertension, estimated pulmonary arterial systolic pressure is 61 mmHg. Pericardium/Pleural There is no pericardial effusion. Inferior Vena Cava Normal inferior vena cava with >50% collapse upon inspiration consistent with normal right atrial pressure, 5 mmHg. Aorta The aortic root size at the sinus of Valsalva is normal. Left Ventricular Outflow Tract Name Value Normal LVOT 2D LVOT Diameter 1.8 cm L
== END 2023-06-13 07:23 | disposition home or self-care (01) ==
PROVIDERS: PCP Emergency Medicine; Visit Provider Internal Medicine Cardiovascular Disease
DX: I08.3 Combined rheumatic disorders of mitral, aortic and tricuspid valves (principal)
CPT/HCPCS: 93306

== ENCOUNTER 2023-07-11 07:35 | Outpatient (CLI) | payer MEDICARE, SELFPAY ==
[2023-07-11 08:35] LABS: Anion Gap 6 mmol/L (4-12); Blood Urea Nitrogen 23 mg/dL (7-17); Calcium 9.3 mg/dL (8.4-10.2); Carbon Dioxide 27 mmol/L (22-30); Chloride 102 mmol/L (98-107); Estimated Glomerular Filt Rate > 60; Glucose 144 mg/dL (65-110); Potassium 4.2 mmol/L (3.4-5.0); Sodium 135 mmol/L (137-145)
== END 2023-07-11 07:36 | disposition home or self-care (01) ==
PROVIDERS: PCP Emergency Medicine; Visit Provider Nurse Practitioner Family
DX: E87.1 Hypo-osmolality and hyponatremia (principal); I51.89 Other ill-defined heart diseases
CPT/HCPCS: 36415; 80048

== ENCOUNTER 2024-01-02 12:28 | Outpatient (CLI) | payer MEDICARE, SELFPAY ==
--- NOTE | 2024-01-02 12:36 | ECHO_ITS ---
Patient Info Name: Martha Martinez Age: 88 years : 1935 Gender: Female Ht: 61 in Wt: 120 lbs BSA: 1.54 m2 BP: 155 / 75 mmHg Heart Rhythm: Sinus Rhythm Technical Quality: Good Exam Date: 01/02/2024 12:46 PM Exam Location: Echo Lab Patient Status: Outpatient Admit Date: 01/02/2024 Staff Ordering Physician: Danis Urena DO Therapy Coordinator: Kaelyn Rogers RDCS Attending Provider: Danis Urena DO Referring Physician: Romel STERLING; Exam Type: CA echo doppler color flow Study Info Indications I35.0 - Nonrheumatic aortic (valve) stenosis Strain analysis performed. Complete two-dimensional, color flow and Doppler transthoracic echocardiogram is performed. Summary 1. Complete two-dimensional, color flow and Doppler transthoracic echocardiogram is performed. 2. Left ventricular chamber dimension is normal. 3. Left ventricular systolic function is normal, estimated at 65-70%. 4. There is mild concentric increased left ventricular wall thickness. 5. The left ventricular diastolic function is grade I diastolic dysfunction. 6. E/e' 23 is elevated. 7. Global longitudinal strain is normal at -17.0%. 8. Left atrial chamber dimension is moderately enlarged. 9. There is severe aortic valve sclerosis. 10. There is severe aortic valve stenosis with a peak velocity of 541 cm/s, mean gradient of 68 mmHg, and aortic valve area of 0.7 cm2. 11. There is mild aortic valve regurgitation. 12. The mitral valve has moderately calcified annulus. 13. There is mild mitral valve regurgitation. 14. There is mild tricuspid valve regurgitation. 15. Moderate pulmonary hypertension, estimated pulmonary arterial systolic pressure is 53 mmHg. 16. There is trace pulmonic regurgitation. Left Ventricle E/e' 23 is elevated. Global longitudinal strain is normal at -17.0%. Left ventricular chamber dimension is normal. Left ventricular systolic function is normal, estimated at 65-70%. There is mild concentric increased left ventricular wall thickness. The left ventricular diastolic function is grade I diastolic dysfunction. Right Ventricle Right ventricular systolic function is normal and with normal TAPSE 2.1 cm. Right ventricular chamber dimension is normal. Left Atria Left atrial chamber dimension is moderately enlarged. Right Atria Right atrial chamber dimension is normal. Aortic Valve The aortic valve is trileaflet. There is severe aortic valve sclerosis. There is severe aortic valve stenosis with a peak velocity of 541 cm/s, mean gradient of 68 mmHg, and aortic valve area of 0.7 cm2. There is mild aortic valve regurgitation. Pulmonic Valve There is trace pulmonic regurgitation. Mitral Valve The mitral valve has moderately calcified annulus. There is no mitral valve stenosis. There is mild mitral valve regurgitation. Tricuspid Valve There is mild tricuspid valve regurgitation. Moderate pulmonary hypertension, estimated pulmonary arterial systolic pressure is 53 mmHg. Pericardium/Pleural There is no pericardial effusion. Inferior Vena Cava Normal inferior vena cava with >50% collapse upon inspiration consistent with normal right atrial pressure, 5 mmHg. Aorta The aortic root size at the sinus of Valsalva is normal. Left Ventricular Outflow Tract Name Value Normal LVOT 2D LVOT Diameter 1.8 cm
== END 2024-01-02 12:29 | disposition home or self-care (01) ==
LOC: ANHCARD 12:28
PROVIDERS: PCP Emergency Medicine; Visit Provider Internal Medicine Cardiovascular Disease
DX: I08.3 Combined rheumatic disorders of mitral, aortic and tricuspid valves (principal)
CPT/HCPCS: 93306